=== PATIENT | female | born 1965 ===

== ENCOUNTER 2020-05-11 14:54 | Outpatient (REF) | payer MEDICARE, MEDICAID, SELFPAY ==
[2020-05-17 18:17] LABS: HPV mRNA E6/E7 rflx Not Detected (Not Detected)
== END 2020-05-11 14:55 | disposition home or self-care (01) ==
LOC: HO.LAB 14:54
PROVIDERS: PCP Internal Medicine; Referring Provider Internal Medicine; Visit Provider Obstetrics & Gynecology
DX: Z01.419 Encounter for gynecological examination (general) (routine) without abnormal findings (principal); N95.9 Unspecified menopausal and perimenopausal disorder; Z11.51 Encounter for screening for human papillomavirus (HPV)
CPT/HCPCS: 87624; 87625; 88142

== ENCOUNTER 2020-06-15 13:32 | Outpatient (REF) | payer MEDICARE, MEDICAID, SELFPAY ==
--- NOTE | 2020-06-15 13:36 | MM_ITS ---
EXAMINATION: MM SCREENING DIGITAL MAMMOGRAPHY, BILATERAL CLINICAL INFORMATION: Screening. Asymptomatic. The lifetime risk of breast cancer based on the Tyrer-Cuzick Model is 10.3%. COMPARISON: Mammography: September 22, 2017 and studies dating back to March 04, 2014 TECHNIQUE: Digital mammography is performed in craniocaudal and mediolateral oblique views along with computer-aided detection (CAD). Additional left exaggerated craniocaudal view performed. FINDINGS: The breasts are heterogeneously dense, which may obscure small masses (ACR BI-RADS breast composition Category c). There are no significant masses, abnormal calcifications, or other abnormalities. Increasing calcifications within the upper outer aspect of the left breast which has been previously sampled and shown to be benign. MM/MM screening mammo BI IMPRESSION: There are no significant changes from prior study. ASSESSMENT: BI-RADS 1: Negative RECOMMENDATION: Routine annual mammography screening. This patient's information was entered into a reminder system with a target due date for their next mammogram.
== END 2020-06-15 13:33 | disposition home or self-care (01) ==
LOC: HO.MAMMO 13:32
PROVIDERS: PCP Internal Medicine; Visit Provider Internal Medicine
DX: Z12.31 Encounter for screening mammogram for malignant neoplasm of breast (principal)
CPT/HCPCS: 77067

== ENCOUNTER 2020-07-05 13:13 | Outpatient (REF) | payer MEDICARE, MEDICAID, SELFPAY | END 2020-07-05 13:14 | disposition home or self-care (01) | LOC: HO.LAB 13:13 | PROVIDERS: PCP Internal Medicine; Visit Provider Internal Medicine | DX: Z20.828 Contact with and (suspected) exposure to other viral communicable diseases (principal) | CPT/HCPCS: C9803; U0003 ==

== ENCOUNTER 2020-08-20 02:26 | Emergency (ER) | payer MEDICARE, MEDICAID, SELFPAY ==
--- NOTE | ~2020-08-20 | XR_ITS ---
EXAMINATION: CHEST 1 VIEW CLINICAL INFORMATION: Shortness of breath. COMPARISON: 12/23/2019. TECHNIQUE: An AP view of the chest is provided. FINDINGS: The cardiac silhouette is not enlarged. The mediastinal and hilar contours are unremarkable. There are neither pleural effusions nor pneumothoraces. There are no consolidations. The osseous structures are stable with moderate S-shaped curvature to the thoracolumbar spine. XR/XR chest 1V IMPRESSION: No evidence for acute disease.
[2020-08-20 02:34] VITALS: BP 100/53; BP 110/62; PULSE 60; PULSE 66; RESP 18; TEMP 36.8; O2SAT 100; O2SAT 98; BMI 29.6
--- NOTE | 2020-08-20 04:26 | ECG_ITS ---
Test Reason : PAIN Blood Pressure : / mmHG Vent. Rate : 059 BPM Atrial Rate : 059 BPM P-R Int : 138 ms QRS Dur : 086 ms QT Int : 430 ms P-R-T Axes : -21 -17 -19 degrees QTc Int : 425 ms Sinus bradycardia Low voltage QRS Inferior infarct , age undetermined Cannot rule out Anterior infarct , age undetermined Abnormal ECG When compared to the previous EKG of 23 december 2019, changes noted Referred By: Erika Hoyos Electronically Signed By:MARY ANNE GURROLA
[2020-08-20 05:13] LABS: Basophils Absolute Auto 0.1 X10*3/uL (0.0-0.2); Basophils Percent Auto 0.7 % (0-2); Eosinophils Absolute Auto 0.5 X10*3/uL (0.0-0.4); Eosinophils Percent Auto 5.4 % (0-4); Hematocrit 38.2 % (37-47); Hemoglobin 12.4 g/dl (12.0-16.0); Imm Gran Abs Auto 0.02 X10*3/uL (0.00-0.03); Imm Gran Pct Auto 0.2 % (0.0-0.4); Lymphocytes Absolute Auto 2.6 X10*3/uL (1.2-4.9); Lymphocytes Percent Auto 31.3 % (20-40); MANUAL DIFF FLAG NO; Mean Corpuscular HGB Conc 32.5 g/dl (31.0-35.0); Mean Corpuscular Volume 89.3 fL (80-98); Mean Platelet Volume 10.8 fL (9.4-12.3); Monocytes Absolute Auto 0.4 X10*3/uL (0.1-1.2); Monocytes Percent Auto 4.3 % (2-11); Neutrophils Absolute Auto 4.9 X10*3/uL (2.0-8.3); Neutrophils Percent Auto 58.1 % (45-73); Platelet Count 282 X10*3/uL (160-400); Red Blood Count 4.28 X10*6/uL (4.20-5.50); Red Cell Distribution Width 12.5 % (11.0-16.0); White Blood Count 8.4 X10*3/uL (4.8-10.8)
[2020-08-20 05:28] LABS: D Dimer < 200 NG/ML
[2020-08-20 05:37] LABS: Troponin-I High Sensitivity < 3.5 ng/L (<3.5-17.0)
[2020-08-20 05:42] LABS: Alanine Aminotransferase 13 U/L (0-31); Albumin Level 4.1 g/dL (3.5-5.0); Alkaline Phosphatase 130 U/L (39-117); Anion Gap 11 (12-20); Aspartate Amino Transferase 14 U/L (5-31); Bilirubin Direct 0.2 mg/dL (0.0-0.5); Bilirubin Total 0.4 mg/dL (0.0-1.0); Blood Urea Nitrogen 20 mg/dL (9-16); Calcium 9.1 mg/dL (8.4-10.2); Carbon Dioxide 27 mmol/L (22-29); Chloride 106 mmol/L (96-108); Creatinine Clr Calc Pharmacy 62.6; Estimated Glomerular Filt Rate > 60; Glucose Random 121 mg/dL (60-115); Lipase 37 U/L (8-78); Potassium 4.3 mmol/L (3.3-5.1); Sodium 140 mmol/L (135-145); Total Protein 6.7 g/dL (6.5-8.0)
[2020-08-20 06:00] VITALS: BP 115/56; PULSE 63; RESP 15; O2SAT 98
--- NOTE | 2020-08-20 06:54 | ED_ITS ---
HPI - General Adult General Chief complaint: General Medical Stated complaint: Leg Swelling Time Seen by Provider: 08/20/20 04:25 Source: patient and tipple boss Mode of arrival: ambulatory Limitations: no limitations History of Present Illness HPI narrative: 55-year-old female who presented to the hospital with symptoms of lower extremities pain and swelling, patient stated after she took her home medication felt the medicine stuck her in her throat and felt short. Of shortness of breath, patient only have a chronic generalized body ache due to arthritis. Related Data Home Medications Medication Instructions Recorded Confirmed furosemide 20 mg tablet 20 mg PO DAILY 05/11/20 06/26/20 gabapentin 300 mg capsule 300 mg PO BID 05/11/20 06/26/20 sulindac 200 mg tablet 200 mg PO BID 05/11/20 06/26/20 tizanidine 4 mg tablet 4 mg PO BEDTIME 05/11/20 06/26/20 trazodone 50 mg tablet 50 mg PO BEDTIME PRN 05/11/20 06/26/20 Previous Rx's Medication Instructions Recorded omeprazole 20 mg tablet,delayed 20 mg PO DAILY 30 Days #30 tab 04/20/20 release Allergies Allergy/AdvReac Type Severity Reaction Status Date / Time tramadol Allergy Unknown headaches Verified 06/26/20 14:02 Review of Systems Review of Systems: All other systems are reviewed and are negative Constitutional: Reports as per HPI and Reports no additional constitutional complaints Eyes: Reports as per HPI and Reports no additional eye complaints Reports system reviewed and no additional complaints, except as documented Cardiovascular: Reports as per HPI and Reports no additional cardiovascular complaints Respiratory: Reports as per HPI and Reports no additional respiratory complaints Gastrointestinal: Reports as per HPI and Reports no additional gastrointestinal complaints Genitourinary: Reports no additional female genitourinary complaints Musculoskeletal: Reports no additional musculoskeletal complaints Skin/Breast: Reports system reviewed and no additional complaints, except as docu Psychiatric: Reports no additional psychiatric complaints Endocrine: Reports no additional endocrine complaints Hematologic/Lymphatic: Reports no additional hematologic/lymphatic complaints Allergic/Immunologic: Reports no additional allergic/immunologic complaints Reports system reviewed and no additional complaints, except as documented and Reports Abnormal speech present [facility] Past Medical History Medical History Dyslipidemia GERD (gastroesophageal reflux disease) Hyperlipemia Insomnia Multiple sclerosis Polyarthralgia Surgical History History of colonoscopy Hx of tubal ligation Family History Family History Father Hypertension Mother Diabetes mellitus Breast cancer Maternal Grandmother Breast cancer Social History Social History Alcohol intake: never Smoking Status: Never smoker Use of substances other than those prescribed or required for medical reasons: No Advance Directives: No Advance Directives Information Provided: No Physical Exam Vital Signs: Vital Signs: Last Vital Signs Temp 98.2 F 08/20/20 02:34 Pulse 63 08/20/20 06:00 Resp 15 08/20/20 06:00 BP 115/56 L 08/20/20 06:00 Pulse Ox 98 08/20/20 06:00 Body Mass Index 29.6 Vital signs have been reviewed as normal and appeared to be correct. Blood pressure normal. Heart rate normal. Respiration rate normal. Temperature normal. Oxygen saturation normal. Appearance: Alert. Oriented X3. No acute distress. Head: Normal external exam. Normocephalic. Atraumatic. No Ods Santos signs noted. No raccoon eyes noted Eyes: PERRLA. EOMI. Conjunctiva and sclera normal. Eyelids normal. ENT: EAC normal. TM's Normal. Pharynx normal. Uvula midline. Moist mucous membranes. No trismus noted. No drooling noted. No muffled voice noted. Neck: Normal inspection. Neck supple. FROM. No adenopathy. Thyroid Normal. No meningeal signs. No neck mass noted. CVS: Normal heart rate and rhythm. Heart sound normal. No murmurs noted. Pulses normal throughout. Respiratory: No respiratory distress. Painless inspiration. Breath sounds normal. No wheezes/rales/rhonchi noted. Chest nontender. No accessory muscle usage noted or decreased air movement noted. Abdomen: Soft and nontender. Bowel sounds normal in all 4 quadrants. No distention noted. No organomegaly noted. No visible injury noted. Back: No CVA tenderness. Full range of motion noted. Skin: Skin warm and dry. Normal skin color. Normal skin turgor. No rashes/lesions/lacerations noted. Extremities: No lower extremity edema. Extremities exhibit normal range of motion. Extremities nontender. Neuro: Oriented X 3. No motor deficit. No sensory deficit. Reflexes normal. Course Course Course Narrative: Assessment and plan. 55-year-old female came in after having generalized body ache (patient have a chronic joint pain due to chronic arthritis), patient also feels short time of shortness of breath after swallowed her home medication. Patient now is asymptomatic feels back to normal, had unremarkable chest x-ray, unremarkable labs. Medical Decision Making Lab Data Lab results reviewed: Yes I reviewed the patient's lab results. Result diagrams: 08/20/20 05:08 08/20/20 05:08 Labs: Lab Results 08/20/20 08/20/20 08/20/20 Range/Units 05:08 05:08 05:08 WBC 8.4 (4.8-10.8) X10*3/uL RBC 4.28 (4.20-5.50) X10*6/uL Hgb 12.4 (12.0-16.0) g/dl Hct 38.2 (37-47) % MCV 89.3 (80-98) fL MCH 29.0 (27.0-33.0) pg MCHC 32.5 (31.0-35.0) g/dl RDW 12.5 (11.0-16.0) % Plt Count 282 (160-400) X10*3/uL MPV 10.8 (9.4-12.3) fL Immature Gran % (Auto) 0.2 (0.0-0.4) % Neut % (Auto) 58.1 (45-73) % Lymph % (Auto) 31.3 (20-40) % [place] % (Auto) 4.3 (2-11) % Eos % (Auto) 5.4 H (0-4) % Baso % (Auto) 0.7 (0-2) % Lymph # (Auto) 2.6 (1.2-4.9) X10*3/uL [place] # (Auto) 0.4 (0.1-1.2) X10*3/uL Eos # (Auto) 0.5 H (0.0-0.4) X10*3/uL Baso # (Auto) 0.1 (0.0-0.2) X10*3/uL Abs Immat Gran (auto) 0.02 (0.00-0.03) X10*3/uL Absolute Neuts (auto) 4.9 (2.0-8.3) X10*3/uL Absolute Nucleated RBC 0.000 (0.0-0.012) X10*3/uL Nucleated RBC % (auto) 0.0 (0.0-0.2) /100WBC D-Dimer < 200 NG/ML Sodium 140 (135-145) mmol/L Potassium 4.3 (3.3-5.1) mmol/L Chloride 106 (96-108) mmol/L Carbon Dioxide 27 (22-29) mmol/L Anion Gap 11 L (12-20) BUN 20 H (9-16) mg/dL Creatinine 0.94 (0.5-1.4) mg/dL Estim Creat Clear Calc 62.6 Estimated GFR > 60 Random Glucose 121 H (60-115) mg/dL Calcium 9.1 (8.4-10.2) mg/dL Total Bilirubin 0.4 (0.0-1.0) mg/dL Direct Bilirubin 0.2 (0.0-0.5) mg/dL AST 14 (5-31) U/L ALT 13 (0-31) U/L Alkaline Phosphatase 130 H (39-117) U/L Troponin I High Sens (<3.5-17.0) ng/L Total Protein 6.7 (6.5-8.0) g/dL Albumin 4.1 (3.5-5.0) g/dL Lipase 37 (8-78) U/L 08/20/20 Range/Units 05:08 WBC (4.8-10.8) X10*3/uL RBC (4.20-5.50) X10*6/uL Hgb (12.0-16.0) g/dl Hct (37-47) % MCV (80-98) fL MCH (27.0-33.0) pg MCHC (31.0-35.0) g/dl RDW (11.0-16.0) % Plt Count (160-400) X10*3/uL MPV (9.4-12.3) fL Immature Gran % (Auto) (0.0-0.4) % Neut % (Auto) (45-73) % Lymph % (Auto) (20-40) % [place] % (Auto) (2-11) % Eos % (Auto) (0-4) % Baso % (Auto) (0-2) % Lymph # (Auto) (1.2-4.9) X10*3/uL [place] # (Auto) (0.1-1.2) X10*3/uL Eos # (Auto) (0.0-0.4) X10*3/uL Baso # (Auto) (0.0-0.2) X10*3/uL Abs Immat Gran (auto) (0.00-0.03) X10*3/uL Absolute Neuts (auto) (2.0-8.3) X10*3/uL Absolute Nucleated RBC (0.0-0.012) X10*3/uL Nucleated RBC % (auto) (0.0-0.2) /100WBC D-Dimer NG/ML Sodium (135-145) mmol/L Potassium (3.3-5.1) mmol/L Chloride (96-108) mmol/L Carbon Dioxide (22-29) mmol/L Anion Gap (12-20) BUN (9-16) mg/dL Creatinine (0.5-1.4) mg/dL Estim Creat Clear Calc Estimated GFR Random Glucose (60-115) mg/dL Calcium (8.4-10.2) mg/dL Total Bilirubin (0.0-1.0) mg/dL Direct Bilirubin (0.0-0.5) mg/dL AST (5-31) U/L ALT (0-31) U/L Alkaline Phosphatase (39-117) U/L Troponin I High Sens < 3.5 (<3.5-17.0) ng/L Total Protein (6.5-8.0) g/dL Albumin (3.5-5.0) g/dL Lipase (8-78) U/L Imaging Data Chest x-ray: Radiologist's impression: No evidence for acute disease. ECG Data Interpretation: Sinus bradycardia at 59 beats per minutes, low voltage, normal i ntervals, flattening T-wave in lead II,III. Discharge Plan Discharge Clinical Impression: Polyarthralgia Patient Disposition: Home, Self-Care Instructions: Arthralgia (ED) Prescriptions: No Action omeprazole 20 mg tablet,delayed release (DR/EC) 20 mg PO DAILY 30 Days Qty: 30 RF: 3 gabapentin 300 mg capsule 300 mg PO BID RF: 0 sulindac 200 mg tablet 200 mg PO BID RF: 0 furosemide 20 mg tablet 20 mg PO DAILY RF: 0 tizanidine 4 mg tablet 4 mg PO BEDTIME RF: 0 trazodone 50 mg tablet 50 mg PO BEDTIME PRNRF: 0 Referrals: Physician,Unknown [Primary Care Provider] - 2 days
== END 2020-08-20 08:00 | disposition home or self-care (01) ==
PROVIDERS: Emergency Provider Emergency Medicine
DX: M25.50 Pain in unspecified joint (principal); G35 Multiple sclerosis
CPT/HCPCS: 36415; 71045; 80048; 80076; 83690; 84484; 85025; 85379; 93005; 99283; 99284

== ENCOUNTER 2020-09-07 09:39 | Outpatient (REF) | payer MEDICARE, MEDICAID, SELFPAY ==
[2020-09-07 10:30] LABS: MANUAL DIFF FLAG NO
[2020-09-07 10:38] LABS: Basophils Absolute Auto 0.1 X10*3/uL (0.0-0.2); Basophils Percent Auto 0.9 % (0-2); Eosinophils Absolute Auto 0.4 X10*3/uL (0.0-0.4); Hematocrit 42.2 % (37-47); Hemoglobin 13.7 g/dl (12.0-16.0); Imm Gran Abs Auto 0.02 X10*3/uL (0.00-0.03); Imm Gran Pct Auto 0.3 % (0.0-0.4); Lymphocytes Absolute Auto 2.2 X10*3/uL (1.2-4.9); Mean Corpuscular HGB Conc 32.5 g/dl (31.0-35.0); Mean Corpuscular Hemoglobin 28.9 pg (27.0-33.0); Mean Platelet Volume 10.9 fL (9.4-12.3); Monocytes Absolute Auto 0.4 X10*3/uL (0.1-1.2); Neutrophils Percent Auto 56.8 % (45-73); Platelet Count 348 X10*3/uL (160-400); Red Blood Count 4.74 X10*6/uL (4.20-5.50); Red Cell Distribution Width 12.2 % (11.0-16.0)
[2020-09-07 11:11] LABS: Alanine Aminotransferase 15 U/L (0-31); Albumin Level 4.3 g/dL (3.5-5.0); Alkaline Phosphatase 135 U/L (39-117); Anion Gap 13 (12-20); Aspartate Amino Transferase 17 U/L (5-31); Bilirubin Total 0.7 mg/dL (0.0-1.0); Blood Urea Nitrogen 19 mg/dL (9-16); Calcium 9.6 mg/dL (8.4-10.2); Carbon Dioxide 26 mmol/L (22-29); Chloride 108 mmol/L (96-108); Cholesterol 235 mg/dL; Estimated Glomerular Filt Rate > 60; Glucose Fasting 103 mg/dL (60-99); HDL Cholesterol 36 mg/dL; LDL Cholesterol Calculated 143 mg/dl; Potassium 4.5 mmol/L (3.3-5.1); Sodium 142 mmol/L (135-145); Total Protein 7.1 g/dL (6.5-8.0); Triglycerides 282 mg/dL
== END 2020-09-07 09:40 | disposition home or self-care (01) ==
LOC: HO.LAB 09:39
PROVIDERS: PCP Internal Medicine; Visit Provider Internal Medicine
DX: K21.9 Gastro-esophageal reflux disease without esophagitis (principal); E78.5 Hyperlipidemia, unspecified
CPT/HCPCS: 36415; 80053; 80061; 85025

== ENCOUNTER 2020-11-09 13:22 | Outpatient (REF) | payer MEDICARE, MEDICAID, SELFPAY | END 2020-11-09 13:23 | disposition home or self-care (01) | LOC: HO.LAB 13:22 | PROVIDERS: Visit Provider Internal Medicine | DX: Z20.822 Contact with and (suspected) exposure to COVID-19 (principal) | CPT/HCPCS: C9803; U0003; U0005 ==

== ENCOUNTER 2020-11-19 00:10 | Emergency (ER) | payer MEDICARE, MEDICAID, SELFPAY ==
--- NOTE | 2020-11-19 00:27 | ED.GENADULT ---
HPI - General Adult General Chief complaint: General Medical Stated complaint: anxiety Time Seen by Provider: 11/19/20 00:19 Source: patient Mode of arrival: EMS Limitations: no limitations History of Present Illness HPI narrative: Patient comes emergency room complaining of feeling tremors that started suddenly approximately 2 hours ago. Patient states she can not stop shaking, feels chest pressure. Patient denies shortness of breath. Patient also states that she feels a sensation that sometimes it is really cold in her body and sometimes it is very warm. After further questioning, patient meets that she ate CBD edible, given by her grandson. Patient states that her grandson told her not to tell us anything about the gummy. Related Data Home Medications Medication Instructions Recorded Confirmed furosemide 20 mg tablet 20 mg PO DAILY 05/11/20 10/16/20 trazodone 50 mg tablet 50 mg PO BEDTIME PRN 05/11/20 10/16/20 Previous Rx's Medication Instructions Recorded omeprazole 20 mg tablet,delayed 20 mg PO DAILY 30 Days #30 tab 08/26/20 release gabapentin 300 mg capsule 300 mg PO BID 30 Days #60 cap 10/09/20 sulindac 200 mg tablet 200 mg PO BID 30 Days #60 tab 10/09/20 atorvastatin 10 mg tablet 10 mg PO BEDTIME 30 Days #30 tab 10/16/20 nabumetone 750 mg tablet 750 mg PO BID 30 Days #60 tab 10/16/20 tizanidine 4 mg tablet 4 mg PO BEDTIME 30 Days #30 tab 11/15/20 Allergies Allergy/AdvReac Type Severity Reaction Status Date / Time tramadol Allergy Intermediate headaches Verified 11/19/20 00:20 Review of Systems Review of Systems: Constitutional : No Weight loss, No Fever, No Chills, No Night Sweats, No Fatigue, No Malaise ENT/Mouth : No Hearing loss, No Ear Pain, No Nasal Congestion, No Sinus Pain, No Hoarseness, No sore throat, No Rhinorrhea, No Swallowing Difficulty Eyes: No Eye Pain, No Swelling, No Redness, No Foreign Body, No Discharge, No Vision Changes Cardiovascular : Complaining of chest pressure, gradually getting better, No SOB, No Dyspnea on Exertion, No Orthopnea, No Edema, No Palpitations Respiratory : No Cough, No Sputum, No Wheezing, No Smoke Exposure, No Dyspnea Gastrointestinal : No Nausea, No Vomiting, No Diarrhea, No Constipation, No abdominal Pain, No Hematochezia, No Melena Genitourinary : no irregular bleeding, No Dysuria, No Urinary Frequency, No Hematuria, No Urinary Incontinence, No Urgency, No Flank Pain, No Urinary Flow Changes, No Hesitancy Musculoskeletal : No joint pain, No Myalgias, No Joint Swelling Skin : No Skin Lesions, No rash Neuro : No Weakness, No Numbness, No Paresthesias, No Loss of Consciousness, No Dizziness, No Headache Psych : Feeling anxious, No Depression, No SI/HI/AH/VH, No Social Issues, Heme/Lymph: No Bruising, No Bleeding,No Lymphadenopathy Endocrine : No Polyuria, No Polydipsia, No Temperature Intolerance PMFSH Past Medical History Medical History Dyslipidemia GERD (gastroesophageal reflux disease) Hyperlipemia Insomnia Multiple sclerosis Polyarthralgia Surgical History History of colonoscopy Hx of tubal ligation Family History Family History Father Hypertension Mother Diabetes mellitus Breast cancer Maternal Grandmother Breast cancer Social History Social History Alcohol intake: never Smoking Status: Never smoker Advance Directives: No Advance Directives Information Provided: No Patient : No Physical Exam Vital Signs: Vital Signs: Last Vital Signs Temp 97.7 F 11/19/20 00:34 Pulse 90 11/19/20 00:34 Resp 16 11/19/20 00:34 BP 171/100 H 11/19/20 00:34 Pulse Ox 100 11/19/20 00:34 Body Mass Index 32.9 Appearance: Alert. Oriented X3. No acute distress. Nervous Eyes: Pupils equal, round and reactive to light. ENT: Pharynx normal. Neck: Normal inspection. Neck supple. No lymph nodes noted. No crepitus CVS: Normal heart rate and rhythm. Pulses normal. Normal S1 and S2 Respiratory: No respiratory distress. Breath sounds normal. No Wheezing. No rales Abdomen: Soft and nontender. No rigidity. No distention. good BS x4 Skin: Skin warm and dry. Normal skin color. Normal skin turgor. Extremities: No lower extremity edema. No lower extremity edema. No Lacerations. No Rash Neuro: Oriented X 3. No motor deficit. No sensory deficit. Moving all extermities. No slurred speech. No tremor observed Course Course Course Narrative: Overall patient states she feels better, patient complaining of chronic tingling sensation in her legs, states has nothing to do with today's events. It was noted on the monitor the patient has frequent PVCs, patient asymptomatic. Patient is ambulatory with no assistance. Troponin within normal limits. Medical Decision Making Lab Data Result diagrams: 11/19/20 00:56 11/19/20 00:56 Labs: Lab Results 11/19/20 11/19/20 11/19/20 Range/Units 00:56 00:56 00:56 WBC 11.7 H (4.8-10.8) X10*3/uL RBC 4.64 (4.20-5.50) X10*6/uL Hgb 13.3 (12.0-16.0) g/dl Hct 40.2 (37-47) % MCV 86.6 (80-98) fL MCH 28.7 (27.0-33.0) pg MCHC 33.1 (31.0-35.0) g/dl RDW 11.9 (11.0-16.0) % Plt Count 315 (160-400) X10*3/uL MPV 10.5 (9.4-12.3) fL Immature Gran % (Auto) 0.3 (0.0-0.4) % Neut % (Auto) 64.3 (45-73) % Lymph % (Auto) 27.5 (20-40) % [place] % (Auto) 4.0 (2-11) % Eos % (Auto) 3.3 (0-4) % Baso % (Auto) 0.6 (0-2) % Lymph # (Auto) 3.2 (1.2-4.9) X10*3/uL [place] # (Auto) 0.5 (0.1-1.2) X10*3/uL Eos # (Auto) 0.4 (0.0-0.4) X10*3/uL Baso # (Auto) 0.1 (0.0-0.2) X10*3/uL Abs Immat Gran (auto) 0.03 (0.00-0.03) X10*3/uL Absolute Neuts (auto) 7.5 (2.0-8.3) X10*3/uL Absolute Nucleated RBC 0.000 (0.0-0.012) X10*3/uL Nucleated RBC % (auto) 0.0 (0.0-0.2) /100WBC Sodium 141 (135-145) mmol/L Potassium 4.1 (3.3-5.1) mmol/L Chloride 104 (96-108) mmol/L Carbon Dioxide 29 (22-29) mmol/L Anion Gap 12 (12-20) BUN 18 H (9-16) mg/dL Creatinine 1.07 (0.5-1.4) mg/dL Estim Creat Clear Calc 58.1 Estimated GFR 53 Random Glucose 150 H (60-115) mg/dL Calcium 9.8 (8.4-10.2) mg/dL Troponin I High Sens < 3.5 (<3.5-17.0) ng/L COVID-19 ([facility]) (Negative) COVID-19 Clin Com 11/19/20 Range/Units 00:56 WBC (4.8-10.8) X10*3/uL RBC (4.20-5.50) X10*6/uL Hgb (12.0-16.0) g/dl Hct (37-47) % MCV (80-98) fL MCH (27.0-33.0) pg MCHC (31.0-35.0) g/dl RDW (11.0-16.0) % Plt Count (160-400) X10*3/uL MPV (9.4-12.3) fL Immature Gran % (Auto) (0.0-0.4) % Neut % (Auto) (45-73) % Lymph % (Auto) (20-40) % [place] % (Auto) (2-11) % Eos % (Auto) (0-4) % Baso % (Auto) (0-2) % Lymph # (Auto) (1.2-4.9) X10*3/uL [place] # (Auto) (0.1-1.2) X10*3/uL Eos # (Auto) (0.0-0.4) X10*3/uL Baso # (Auto) (0.0-0.2) X10*3/uL Abs Immat Gran (auto) (0.00-0.03) X10*3/uL Absolute Neuts (auto) (2.0-8.3) X10*3/uL Absolute Nucleated RBC (0.0-0.012) X10*3/uL Nucleated RBC % (auto) (0.0-0.2) /100WBC Sodium (135-145) mmol/L Potassium (3.3-5.1) mmol/L Chloride (96-108) mmol/L Carbon Dioxide (22-29) mmol/L Anion Gap (12-20) BUN (9-16) mg/dL Creatinine (0.5-1.4) mg/dL Estim Creat Clear Calc Estimated GFR Random Glucose (60-115) mg/dL Calcium (8.4-10.2) mg/dL Troponin I High Sens (<3.5-17.0) ng/L COVID-19 ([facility]) Negative (Negative) COVID-19 Clin Com See Note ECG Data Attestation: I personally reviewed and interpreted this ECG as follows: (Sinus rhythm with premature PVCs, heart rate 83, no ST segment depression or elevation, QTC 441) Discharge Plan Discharge Clinical Impression: Anxiety Patient Disposition: Home, Self-Care Instructions: Anxiolysis in Adults (ED) Additional Instructions: Please follow-up with your primary care physician tomorrow. If you have any worsening or new symptoms, please return to the emergency room or call 911 Prescriptions: No Action omeprazole 20 mg tablet,delayed release (DR/EC) 20 mg PO DAILY 30 Days Qty: 30 RF: 3 sulindac 200 mg tablet 200 mg PO BID 30 Days Qty: 60 RF: 6 gabapentin 300 mg capsule 300 mg PO BID 30 Days Qty: 60 RF: 6 tizanidine 4 mg tablet 4 mg PO BEDTIME 30 Days Qty: 30 RF: 6 atorvastatin 10 mg tablet 10 mg PO BEDTIME 30 Days Qty: 30 RF: 2 nabumetone 750 mg tablet 750 mg PO BID 30 Days Qty: 60 RF: 3 furosemide 20 mg tablet 20 mg PO DAILY RF: 0 trazodone 50 mg tablet 50 mg PO BEDTIME PRNRF: 0
[2020-11-19 00:34] VITALS: BP 171/100; PULSE 90; RESP 16; TEMP 36.5; O2SAT 100; BMI 32.9
[2020-11-19 01:01] LABS: MANUAL DIFF FLAG NO
[2020-11-19 01:02] LABS: Basophils Absolute Auto 0.1 X10*3/uL (0.0-0.2); Basophils Percent Auto 0.6 % (0-2); Eosinophils Absolute Auto 0.4 X10*3/uL (0.0-0.4); Eosinophils Percent Auto 3.3 % (0-4); Hematocrit 40.2 % (37-47); Hemoglobin 13.3 g/dl (12.0-16.0); Imm Gran Abs Auto 0.03 X10*3/uL (0.00-0.03); Imm Gran Pct Auto 0.3 % (0.0-0.4); Lymphocytes Absolute Auto 3.2 X10*3/uL (1.2-4.9); Lymphocytes Percent Auto 27.5 % (20-40); Mean Corpuscular HGB Conc 33.1 g/dl (31.0-35.0); Mean Corpuscular Hemoglobin 28.7 pg (27.0-33.0); Mean Corpuscular Volume 86.6 fL (80-98); Mean Platelet Volume 10.5 fL (9.4-12.3); Monocytes Absolute Auto 0.5 X10*3/uL (0.1-1.2); Neutrophils Absolute Auto 7.5 X10*3/uL (2.0-8.3); Neutrophils Percent Auto 64.3 % (45-73); Platelet Count 315 X10*3/uL (160-400); Red Blood Count 4.64 X10*6/uL (4.20-5.50); Red Cell Distribution Width 11.9 % (11.0-16.0); White Blood Count 11.7 X10*3/uL (4.8-10.8)
--- NOTE | 2020-11-19 01:22 | ECG_ITS ---
Test Reason : CP Blood Pressure : / mmHG Vent. Rate : 083 BPM Atrial Rate : 083 BPM P-R Int : 138 ms QRS Dur : 092 ms QT Int : 376 ms P-R-T Axes : 062 038 044 degrees QTc Int : 441 ms Sinus rhythm with Premature supraventricular complexes Cannot rule out Anterior infarct (cited on or before 20-AUG-2020) Abnormal ECG When compared with ECG of 20-AUG-2020 05:30, Premature supraventricular complexes are now Present Criteria for Inferior infarct are no longer Present Nonspecific T wave abnormality no longer evident in Inferior leads Referred By: Berna Acosta Electronically Signed By:Wilberto Farooq
[2020-11-19 01:23] LABS: Anion Gap 12 (12-20); Blood Urea Nitrogen 18 mg/dL (9-16); Calcium 9.8 mg/dL (8.4-10.2); Carbon Dioxide 29 mmol/L (22-29); Chloride 104 mmol/L (96-108); Creatinine Clr Calc Pharmacy 58.1; Estimated Glomerular Filt Rate 53; Glucose Random 150 mg/dL (60-115); Potassium 4.1 mmol/L (3.3-5.1); Sodium 141 mmol/L (135-145)
[2020-11-19] MEDS: Aspirin Enteric Coated 325 MG TABLET.DR PO (01:25)
[2020-11-19 01:30] LABS: Troponin-I High Sensitivity < 3.5 ng/L (<3.5-17.0)
[2020-11-19 01:48] LABS: COVID-19 Test Negative (Negative)
--- NOTE | 2020-11-19 02:00 | PC.NURSE ---
PT AMBULATORY TO BATHROOM WITH STEADY GAIT. MD REPORTS PT READY FOR DISCHARGE.
== END 2020-11-19 02:00 | disposition home or self-care (01) ==
PROVIDERS: Emergency Provider Emergency Medicine; PCP Internal Medicine
DX: R25.1 Tremor, unspecified (principal); F41.1 Generalized anxiety disorder; F43.0 Acute stress reaction; Z20.822 Contact with and (suspected) exposure to COVID-19; Z79.899 Other long term (current) drug therapy
CPT/HCPCS: 36415; 80048; 84484; 85025; 87635; 93005; 99283

== ENCOUNTER 2020-12-22 09:14 | Outpatient (REF) | payer MEDICARE, MEDICAID, SELFPAY ==
--- NOTE | ~2020-12-22 | XR_ITS ---
EXAMINATION: XR CERVICAL SPINE CLINICAL INFORMATION: Neck pain. COMPARISON: None TECHNIQUE: 3 views of the cervical spine were obtained. FINDINGS: There is mild straightening of cervical lordosis. The vertebral heights, alignment and disc heights are normal. There is no visible acute fracture, dislocation or subluxation seen. The prevertebral and paravertebral soft tissues are normal. XR/XR cervical spine 2V IMPRESSION: Mild straightening of cervical lordosis. No visible acute fracture, dislocation or lytic process seen.
[2020-12-22 11:06] LABS: MANUAL DIFF FLAG NO
[2020-12-22 11:20] LABS: Basophils Absolute Auto 0.1 X10*3/uL (0.0-0.2); Basophils Percent Auto 0.7 % (0-2); Eosinophils Absolute Auto 0.4 X10*3/uL (0.0-0.4); Eosinophils Percent Auto 5.1 % (0-4); Hematocrit 40.8 % (37-47); Hemoglobin 13.1 g/dl (12.0-16.0); Imm Gran Abs Auto 0.02 X10*3/uL (0.00-0.03); Imm Gran Pct Auto 0.2 % (0.0-0.4); Lymphocytes Percent Auto 24.3 % (20-40); Mean Corpuscular HGB Conc 32.1 g/dl (31.0-35.0); Mean Corpuscular Hemoglobin 28.4 pg (27.0-33.0); Mean Corpuscular Volume 88.3 fL (80-98); Mean Platelet Volume 11.4 fL (9.4-12.3); Monocytes Absolute Auto 0.5 X10*3/uL (0.1-1.2); Monocytes Percent Auto 5.9 % (2-11); Neutrophils Absolute Auto 5.2 X10*3/uL (2.0-8.3); Neutrophils Percent Auto 63.8 % (45-73); Platelet Count 298 X10*3/uL (160-400); Red Blood Count 4.62 X10*6/uL (4.20-5.50); Red Cell Distribution Width 12.4 % (11.0-16.0); White Blood Count 8.2 X10*3/uL (4.8-10.8)
[2020-12-22 12:15] LABS: Alanine Aminotransferase 12 U/L (0-31); Albumin Level 4.1 g/dL (3.5-5.0); Alkaline Phosphatase 147 U/L (39-117); Anion Gap 13 (12-20); Aspartate Amino Transferase 14 U/L (5-31); Bilirubin Total 0.5 mg/dL (0.0-1.0); Blood Urea Nitrogen 20 mg/dL (9-16); Carbon Dioxide 26 mmol/L (22-29); Chloride 108 mmol/L (96-108); Cholesterol 172 mg/dL; Estimated Glomerular Filt Rate > 60; Glucose Fasting 101 mg/dL (60-99); HDL Cholesterol 38 mg/dL; LDL Cholesterol Calculated 94 mg/dl; Potassium 4.5 mmol/L (3.3-5.1); Sodium 142 mmol/L (135-145); Total Protein 6.6 g/dL (6.5-8.0); Triglycerides 201 mg/dL
[2020-12-30 16:07] LABS: Vitamin D 25-OH, D2 <4 ng/mL; Vitamin D 25-OH, D3 30 ng/mL; Vitamin D 25-OH, Total 30 ng/mL (30-100)
== END 2020-12-22 09:15 | disposition home or self-care (01) ==
LOC: HO.XRAY 09:14
PROVIDERS: PCP Internal Medicine; Visit Provider Internal Medicine
DX: M54.2 Cervicalgia (principal); D64.9 Anemia, unspecified; E78.5 Hyperlipidemia, unspecified; E55.9 Vitamin D deficiency, unspecified; M25.50 Pain in unspecified joint
CPT/HCPCS: 36415; 72040; 80053; 80061; 82306; 85025

== ENCOUNTER 2021-01-31 08:41 | Outpatient (REF) | payer MEDICARE, MEDICAID, SELFPAY ==
--- NOTE | 2021-01-31 08:44 | EMG_ITS ---
This is a 55-year-old woman with a 2-month history of bilateral upper extremity pain, numbness, and tingling. She is on no medications. PHYSICAL EXAMINATION: On examination, she is alert and oriented with normal intellectual functions. Cranial nerves II through XII are normal. Muscle tone and strength are normal in all 4 extremities. Deep tendon reflexes symmetrical. No Tinel or Phalen sign. IMPRESSION: Rule out carpal tunnel syndrome. Nerve conduction EMG study: Normal electrodiagnostic study of both upper extremities with no evidence of carpal tunnel syndrome or nerve entrapment. Normal EMG of the right C5-T1 innervated muscles. MD NICK Dorado/LALIT / [id number]
== END 2021-01-31 08:42 | disposition home or self-care (01) ==
LOC: HO.NEURO 08:41
PROVIDERS: Visit Provider Internal Medicine
DX: R20.0 Anesthesia of skin (principal)
CPT/HCPCS: 95885; 95913

== ENCOUNTER 2021-02-26 13:34 | Outpatient (REF) | payer MEDICARE, MEDICAID, SELFPAY ==
--- NOTE | ~2021-02-26 | MR_ITS ---
EXAMINATION: MR BRAIN WITHOUT CONTRAST CLINICAL INFORMATION: Multiple sclerosis follow up study. Headaches. Numbness and tingling of forehead. COMPARISON: Prior MRI dated MRI dated 06/16/2018. TECHNIQUE: Multiplanar, multisequential imaging was obtained without intravenous administration of contrast. FINDINGS: There is a new 1 cm T2 hyperintense lesion in the left frontal burton radiata. When allowing for differences in imaging technique, the remaining overall pattern of disease is without change. No diffusion abnormalities are identified to suggest an acute infarct. The ventricles are normal in size. No mass effect or midline shift is seen. No extra-axial fluid collections are seen. The craniovertebral junction, marrow signal, and midline structures are normal. The major intracranial flow voids at the level of the samish of Agar[place] are preserved. The dural venous sinus flow voids are maintained. The mastoid air cells and paranasal sinuses are fairly well aerated. MR/MR head/brain wo con IMPRESSION: New small 1 cm lesion in the left frontal centrum semiovale. Remaining pattern of white matter disease is stable as compared to previous imaging.
== END 2021-02-26 13:35 | disposition home or self-care (01) ==
LOC: HO.MRI 13:34
PROVIDERS: PCP Internal Medicine; Visit Provider Internal Medicine
DX: G35 Multiple sclerosis (principal)
CPT/HCPCS: 70551

== ENCOUNTER 2021-02-28 12:33 | Outpatient (REF) | payer MEDICARE, MEDICAID, SELFPAY ==
[2021-02-28 14:50] LABS: MANUAL DIFF FLAG NO
[2021-02-28 14:56] LABS: Basophils Absolute Auto 0.1 X10*3/uL (0.0-0.2); Basophils Percent Auto 0.9 % (0-2); Eosinophils Absolute Auto 0.3 X10*3/uL (0.0-0.4); Eosinophils Percent Auto 3.6 % (0-4); Hematocrit 42.1 % (37-47); Hemoglobin 13.8 g/dl (12.0-16.0); Imm Gran Abs Auto 0.02 X10*3/uL (0.00-0.03); Imm Gran Pct Auto 0.3 % (0.0-0.4); Lymphocytes Percent Auto 27.3 % (20-40); Mean Corpuscular HGB Conc 32.8 g/dl (31.0-35.0); Mean Corpuscular Hemoglobin 28.3 pg (27.0-33.0); Mean Corpuscular Volume 86.3 fL (80-98); Mean Platelet Volume 11.1 fL (9.4-12.3); Monocytes Absolute Auto 0.3 X10*3/uL (0.1-1.2); Monocytes Percent Auto 4.2 % (2-11); Neutrophils Absolute Auto 4.7 X10*3/uL (2.0-8.3); Neutrophils Percent Auto 63.7 % (45-73); Platelet Count 326 X10*3/uL (160-400); Red Blood Count 4.88 X10*6/uL (4.20-5.50); Red Cell Distribution Width 12.4 % (11.0-16.0); White Blood Count 7.4 X10*3/uL (4.8-10.8)
[2021-02-28 15:22] LABS: Alanine Aminotransferase 20 U/L (0-31); Albumin Level 4.6 g/dL (3.5-5.0); Alkaline Phosphatase 134 U/L (39-117); Anion Gap 15 (12-20); Aspartate Amino Transferase 17 U/L (5-31); Bilirubin Total 0.4 mg/dL (0.0-1.0); Blood Urea Nitrogen 16 mg/dL (9-16); C Reactive Protein 0.28 mg/dL (< or = 0.50); Calcium 10.1 mg/dL (8.4-10.2); Carbon Dioxide 28 mmol/L (22-29); Chloride 101 mmol/L (96-108); Estimated Glomerular Filt Rate 60; Glucose Random 98 mg/dL (60-115); Potassium 4.2 mmol/L (3.3-5.1); Rheumatoid Factor < 15.0 IU/mL (<15.0); Sodium 140 mmol/L (135-145); Total Protein 7.7 g/dL (6.5-8.0)
[2021-02-28 15:43] LABS: Erythrocyte Sedimentation Rate 11 MM/HR (0-20)
[2021-03-01 11:47] LABS: Lyme Abs Screen <0.90 index
[2021-03-05 13:17] LABS: Vitamin D 25-OH, D2 <4 ng/mL; Vitamin D 25-OH, D3 25 ng/mL; Vitamin D 25-OH, Total 25 ng/mL (30-100)
[2021-03-06 16:28] LABS: Cyclic Citrullinated Peptide <16 UNITS
== END 2021-02-28 12:34 | disposition home or self-care (01) ==
LOC: HO.LAB 12:33
PROVIDERS: PCP Internal Medicine; Visit Provider Student in an Organized Health Care Education/Training Program
DX: M25.50 Pain in unspecified joint (principal); M54.2 Cervicalgia
CPT/HCPCS: 36415; 80053; 82306; 85025; 85652; 86140; 86200; 86431; 86617; 86618; 99202

== ENCOUNTER 2021-03-01 09:59 | Outpatient (REF) | payer MEDICARE, MEDICAID, SELFPAY ==
--- NOTE | ~2021-03-01 | XR_ITS ---
EXAMINATION: RIGHT SHOULDER 4 VIEWS AND CERVICAL SPINE 4 VIEWS CLINICAL INFORMATION: Pain COMPARISON: None TECHNIQUE: As above FINDINGS: Mild spurring about the AC joint. Glenohumeral joint normal. No soft tissue calcifications or focal bony lesion. Good range of motion. Cervical spine imaging demonstrates no prevertebral soft tissue swelling. There is mild endplate spurring with preservation of disc heights. Posterior elements demonstrate mild narrowing of the apophyseal joints throughout without subluxation. Spinous processes intact. Lung apices clear. XR/XR cervical spine 2V IMPRESSION: Mild degeneration AC joint. Generalized spurring as above and narrowing the apophyseal joints without subluxation or disc space narrowing.
--- NOTE | ~2021-03-01 | XR_ITS ---
EXAMINATION: RIGHT SHOULDER 4 VIEWS AND CERVICAL SPINE 4 VIEWS CLINICAL INFORMATION: Pain COMPARISON: None TECHNIQUE: As above FINDINGS: Mild spurring about the AC joint. Glenohumeral joint normal. No soft tissue calcifications or focal bony lesion. Good range of motion. Cervical spine imaging demonstrates no prevertebral soft tissue swelling. There is mild endplate spurring with preservation of disc heights. Posterior elements demonstrate mild narrowing of the apophyseal joints throughout without subluxation. Spinous processes intact. Lung apices clear. XR/XR shoulder RT 1V IMPRESSION: Mild degeneration AC joint. Generalized spurring as above and narrowing the apophyseal joints without subluxation or disc space narrowing.
== END 2021-03-01 10:00 | disposition home or self-care (01) ==
LOC: HO.XRAY 09:59
PROVIDERS: PCP Internal Medicine; Visit Provider Internal Medicine
DX: M54.2 Cervicalgia (principal); M25.511 Pain in right shoulder
CPT/HCPCS: 72040; 73020

== ENCOUNTER → 2021-03-20 12:58 | Outpatient (BNVA) | payer MEDICARE, MEDICAID, SELFPAY | PROVIDERS: PCP Internal Medicine; Visit Provider Student in an Organized Health Care Education/Training Program | CPT/HCPCS: Q3014 ==

== ENCOUNTER 2021-05-03 16:18 | Emergency (ER) | payer MEDICARE, MEDICAID, SELFPAY ==
[2021-05-03 16:50] VITALS: BP 154/74; PULSE 80; RESP 16; TEMP 36.1; O2SAT 95; BMI 33.3
--- NOTE | 2021-05-03 17:51 | ED.GENADULT ---
HPI - General Adult General Chief complaint: Skin/Abscess/Foreign Body Stated complaint: Poison Sakina Time Seen by Provider: 05/03/21 17:50 Source: patient Limitations: no limitations History of Present Illness HPI narrative: Patient presents 2-3 day history of worsening poison sakina on the upper extremities multiple areas of weeping lesions. Very itchy. Symptoms moderate to severe. Patient denies shortness of breath. Patient denies tobacco history. Patient denies history of diabetes. Related Data Home Medications Medication Instructions Recorded Confirmed furosemide 20 mg tablet 40 mg PO DAILY tab 12/05/20 04/12/21 Previous Rx's Medication Instructions Recorded tizanidine 4 mg tablet 4 mg PO BEDTIME 30 Days #30 tab 11/15/20 hydroxyzine HCl 25 mg tablet 25 mg PO BID PRN 30 Days #60 tab 12/10/20 atorvastatin 10 mg tablet 10 mg PO BEDTIME 30 Days #30 tab 01/16/21 nabumetone 750 mg tablet 750 mg PO BID 30 Days #60 tab 02/19/21 omeprazole 20 mg tablet,delayed 20 mg PO DAILY 30 Days #30 tab 03/26/21 release gabapentin 300 mg capsule 300 mg PO BID 30 Days #60 cap 04/05/21 prednisone 10 mg tablet 10 mg PO DAILY #30 tab 05/03/21 Allergies Allergy/AdvReac Type Severity Reaction Status Date / Time tramadol Allergy Intermediate headaches Verified 05/03/21 17:51 Review of Systems Constitutional: Constitutional: Denies chills, Denies fever(s) and Denies headache(s) Eyes: Eyes: Denies change in vision ENT: Denies headache(s) and Denies sore throat Cardiovascular: Cardiovascular: Denies chest pain and Denies dyspnea Respiratory: Respiratory: Denies cough and Denies dyspnea Gastrointestinal: Gastrointestinal: Denies nausea and Denies vomiting Integumentary/Breasts: Skin/Breast: Reports rash (Diffuse upper extremities) Neurologic: Denies headache(s) [facility] Past Medical History Attestation statement: The following information was validated with the patient. Medical History Dyslipidemia GERD (gastroesophageal reflux disease) Hyperlipemia Insomnia Lesion of frontal lobe of brain Multiple sclerosis Neck pain Numbness Polyarthralgia Right shoulder pain Tachycardia Surgical History History of colonoscopy Hx of tubal ligation Family History Family History Father Hypertension Mother Diabetes mellitus Breast cancer Maternal Grandmother Breast cancer Social History Social History Housing: Apartment Alcohol intake: never Patient Tobacco Use Status: Never used Tobacco e-Cigarette/Vaping Use: Never Used Second Hand Smoke Exposure: No Advance Directives: No Advance Directives Information Provided: No service: No Current occupational status: disabled Physical Exam Vital Signs: Vital Signs: Last Vital Signs Temp 97 F 05/03/21 16:50 Pulse 80 05/03/21 16:50 Resp 16 05/03/21 16:50 BP 154/74 H 05/03/21 16:50 Pulse Ox 95 05/03/21 16:50 Body Mass Index 33.3 vital signs have been reviewed as normal and appeared to be correct. Blood pressure normal. Heart rate normal. Respiration rate normal. Temperature normal. Oxygen saturation normal. Appearance: Alert. Oriented X3. No acute distress. Head: Normal external exam. Normocephalic. Atraumatic. Eyes: PERRLA. EOMI. Conjunctiva and sclera normal. Eyelids normal. ENT: Pharynx normal. Uvula midline. Moist mucous membranes. Neck: Soft full range of motion, no JVD CVS: Heart regular rate and rhythm no murmurs and rubs Respiratory: Breath sounds are clear to auscultation bilaterally. No accessory muscle use noted. Back: No CVA tenderness. Full range of motion noted. Skin: Diffuse erythematous rash weeping lesions upper extremities obvious contact dermatitis secondary to poison sakina. Extremities: No lower extremity edema. Extremities exhibit normal range of motion. Extremities nontender. Neuro: Oriented X 3. No motor deficit. No sensory deficit. Reflexes normal. Course Course Course Narrative: Contact dermatitis Poison sakina Cellulitis unlikely Rashes obvious contact dermatitis secondary to poison sakina will give 60 mg prednisone p.o. here at this time. 6:08 p.m. 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 all questions answered Discharge Plan Discharge Clinical Impression: Poison sakina Patient Disposition: Home, Self-Care Instructions: Poison Sakina (ED) Prescriptions: New prednisone 10 mg tablet 10 mg PO DAILY Qty: 30 RF: 0 No Action tizanidine 4 mg tablet 4 mg PO BEDTIME 30 Days Qty: 30 RF: 6 atorvastatin 10 mg tablet 10 mg PO BEDTIME 30 Days Qty: 30 RF: 6 omeprazole 20 mg tablet,delayed release (DR/EC) 20 mg PO DAILY 30 Days Qty: 30 RF: 3 gabapentin 300 mg capsule 300 mg PO BID 30 Days Qty: 60 RF: 6 hydroxyzine HCl 25 mg tablet 25 mg PO BID PRN (Reason: itching) 30 Days Qty: 60 RF: 0 nabumetone 750 mg tablet 750 mg PO BID 30 Days Qty: 60 RF: 1 furosemide 20 mg tablet 40 mg PO DAILY RF: 0 Print Language: Upper Sorbian
[2021-05-03] MEDS: predniSONE 20 MG TABLET 60 MG PO (18:17)
== END 2021-05-03 18:44 | disposition home or self-care (01) ==
LOC: HO.ED 17:56
PROVIDERS: Emergency Provider Emergency Medicine; PCP Internal Medicine
DX: L23.7 Allergic contact dermatitis due to plants, except food (principal); Z79.899 Other long term (current) drug therapy
CPT/HCPCS: 99283

== ENCOUNTER 2021-06-06 13:30 | Outpatient (REF) | payer MEDICARE, MEDICAID, SELFPAY ==
[2021-06-06 15:23] LABS: Appearance Urine CLOUDY; Color Urine YELLOW; Glucose Urine UA NEG (NEG); Leukocyte Esterase Urine 1+ (NEG); Nitrite Urine NEG (NEG); PH 7.5 (5.0-8.0); UACC Culture Trigger YES; Urine Blood 2+ (NEG); Urine Ketones NEG (NEG); Urine Protein TRACE MG/DL (NEG-TRACE)
[2021-06-06 15:26] LABS: Alanine Aminotransferase 18 U/L (0-31); Albumin Level 4.2 g/dL (3.5-5.0); Alkaline Phosphatase 119 U/L (39-117); Anion Gap 13 (12-20); Aspartate Amino Transferase 15 U/L (5-31); Bilirubin Total 0.3 mg/dL (0.0-1.0); Blood Urea Nitrogen 17 mg/dL (9-16); Calcium 9.3 mg/dL (8.4-10.2); Carbon Dioxide 25 mmol/L (22-29); Chloride 109 mmol/L (96-108); Cholesterol 203 mg/dL; Estimated Glomerular Filt Rate > 60; Glucose Fasting 121 mg/dL (60-99); HDL Cholesterol 45 mg/dL; LDL Cholesterol Calculated 131 mg/dl; Potassium 4.3 mmol/L (3.3-5.1); Sodium 143 mmol/L (135-145); Triglycerides 139 mg/dL
[2021-06-06 16:01] LABS: UACC CULT YES; WBC Urine 50-75 /HPF (0-4)
[2021-06-06 16:02] LABS: Amorphous Sediment Urine TRACE /LPF; Bacteria Urine 1+ /LPF; WBC Clumps Urine NOTED
== END 2021-06-06 13:31 | disposition home or self-care (01) ==
LOC: HO.LAB 13:30
PROVIDERS: PCP Internal Medicine; Visit Provider Internal Medicine
DX: E78.5 Hyperlipidemia, unspecified (principal)
CPT/HCPCS: 36415; 80053; 80061; 81001; 87086; 87088; 87186

== ENCOUNTER 2021-06-11 14:15 | Emergency (ER) | payer MEDICARE, MEDICAID, SELFPAY ==
--- NOTE | ~2021-06-11 | XR_ITS ---
EXAMINATION: XR CHEST CLINICAL INFORMATION: Cough. Body ache. COMPARISON: Chest x-ray 08/20/2020 TECHNIQUE: Frontal portable view of the chest was obtained. 4:39 PM FINDINGS: S-shaped scoliosis of the spine. No acute abnormality of the chest. Lungs are normally aerated. There is no pleural effusion and no pneumothorax. Heart size is normal. Cardiac and mediastinal contours are normal. XR/XR chest 1V IMPRESSION: No acute abnormality of chest.
[2021-06-11 15:40] VITALS: BP 188/85; PULSE 73; RESP 20; TEMP 36.8; O2SAT 99; BMI 30.3
--- NOTE | 2021-06-11 16:30 | ED_ITS ---
HPI - URI/Sore Throat General Chief Complaint: Upper Respiratory Symptoms Stated Complaint: sob, cough, headache, congestion Time Seen by Provider: 06/11/21 16:05 Source: patient Mode of arrival: ambulatory Limitations: no limitations History of Present Illness HPI Narrative: 56-year-old female presents to the ED for chills, cough, sore throat, body aches, and headaches at least 4 days. Patient states she is not vaccinated against COVID-19 virus. Patient denies any leg swelling, chest pain or shortness of breath. MD elicited complaint: cough and sore throat Related Data Home Medications Medication Instructions Recorded Confirmed furosemide 20 mg tablet 40 mg PO DAILY tab 12/05/20 04/12/21 Previous Rx's Medication Instructions Recorded tizanidine 4 mg tablet 4 mg PO BEDTIME 30 Days #30 tab 11/15/20 hydroxyzine HCl 25 mg tablet 25 mg PO BID PRN 30 Days #60 tab 12/10/20 atorvastatin 10 mg tablet 10 mg PO BEDTIME 30 Days #30 tab 01/16/21 nabumetone 750 mg tablet 750 mg PO BID 30 Days #60 tab 02/19/21 omeprazole 20 mg tablet,delayed 20 mg PO DAILY 30 Days #30 tab 03/26/21 release gabapentin 300 mg capsule 300 mg PO BID 30 Days #60 cap 04/05/21 prednisone 10 mg tablet 10 mg PO DAILY #30 tab 05/15/21 albuterol sulfate 90 mcg/actuation 2 puff INHALATION QID PRN #8.5 g 06/11/21 aerosol inhaler azithromycin 250 mg tablet See Rx Instructions .ROUTE 06/11/21 .COMPLEX #6 tab prednisone 20 mg tablet 40 mg PO DAILY 5 Days #10 tab 06/11/21 Allergies Allergy/AdvReac Type Severity Reaction Status Date / Time tramadol Allergy Intermediate headaches Verified 06/11/21 15:40 Review of Systems Review of Systems: Yes all other systems are reviewed and are negative Constitutional: Constitutional: Reports as per HPI, Reports no additional constitutional complaints, Reports body ache(s), Reports chills and Reports headache(s) Eyes: Eyes: Reports as per HPI and Reports no additional eye complaints ENT: Reports system reviewed and no additional complaints, except as documented, Reports as per HPI, Reports headache(s) and Reports sore throat Cardiovascular: Cardiovascular: Reports as per HPI, Reports no additional cardiovascular complaints, Denies chest pain, Denies chest pain at rest and Denies chest pain with activity Respiratory: Respiratory: Reports as per HPI, Reports no additional respir atory complaints and Reports cough Gastrointestinal: Gastrointestinal: Reports as per HPI and Reports no additional gastrointestinal complaints Genitourinary: Genitourinary: Reports no additional female genitourinary complaints and Reports as per HPI Musculoskeletal: Musculoskeletal: Reports no additional musculoskeletal complaints and Reports as per HPI Neurologic: Reports system reviewed and no additional complaints, except as documented, Reports as per HPI and Reports headache(s) Psychiatric: Psychiatric: Reports no additional psychiatric complaints and Reports as per HPI [facility] Past Medical History Medical History Dyslipidemia GERD (gastroesophageal reflux disease) Hyperlipemia Insomnia Lesion of frontal lobe of brain Multiple sclerosis Neck pain Numbness Polyarthralgia Right shoulder pain Tachycardia Surgical History History of colonoscopy Hx of tubal ligation Family History Family History Father Hypertension Mother Diabetes mellitus Breast cancer Maternal Grandmother Breast cancer Social History Social History Housing: Apartment Alcohol intake: never Patient Tobacco Use Status: Never used Tobacco e-Cigarette/Vaping Use: Never Used Second Hand Smoke Exposure: No Advance Directives: No Advance Directives Information Provided: No Patient : No service: No Current occupational status: disabled Physical Exam Vital Signs: Vital Signs: Last Vital Signs Temp 98.3 F 06/11/21 15:40 Pulse 73 06/11/21 15:40 Resp 20 06/11/21 15:40 BP 188/85 H 06/11/21 15:40 Pulse Ox 99 06/11/21 15:40 Body Mass Index 30.3 Const: General: cooperative, healthy appearing, comfortable, no acute distress, well developed, alert, awake and Physically active Orientation/consciousness: patient oriented x3 HENMT: Head: Yes normal to inspection, Yes No palpable skull fracture present, Yes normocephalic, Yes atraumatic and No abrasion Eyes: General: appearance normal, both eyes and all related structures Pupils: Equal, round and reactive pupils present Neck: Neck: Yes normal visual inspection, Yes full ROM, Yes no lymphadenopathy, Yes no meningeal signs, Yes trachea midline, Yes supple, No anterior neck swelling and No tender Chest: Chest palpation & inspection: normal inspection of the chest and normal palpation of entire chest wall Resp: Effort & Inspection: normal respiratory effort and able to speak in complete sentences Auscultation: wheezes expiratory wheezes Cardio: Jugular venous distension: no JVD Heart sounds: S1 normal heart sound present and S2 normal heart sound present GI: Inspection: Yes normal to inspection and No abdominal wall ecchymosis Palpation (GI): Soft to palpation, not firm, nontender, no guarding and not rigid : General: No CVA tenderness and Yes no CVA tenderness Back/Spine/Pelvis: Back: no CVA tenderness, No CVA tenderness and No back tenderness Skin: General skin exam: no rashes or lesions noted and elasticity normal Neuro: General: patient oriented x3, gait normal, tone normal, moves all extremities, Normal light touch and pain sensation, no meningeal signs, no focal motor deficits, CN's II-XI intact bilaterally, normal sensation to monofilament and deep tendon reflexes 2+ bilaterally Cranial nerves: Yes CN's II-XII intact bilaterally, Yes Facial sensation intact/muscles of mastication intact, Yes Intact sense of smell present, Yes Equal, round and reactive pupils present, Yes Normal accommodation reflex present, Yes Bilaterally intact EOM present, Yes Nystagmus not present, Yes Normal facial strength present, Yes Midline tongue present and Yes Normal gag reflex present Extrem: Other: Lower extremities negative for swelling, pitting edema, or calf tenderness Psych: Appearance: grossly normal, well kempt and not disheveled Course Course Course Narrative: Patient vital signs are stable. Patient is not hypoxic. Patient will have x-ray COVID swab and strep test ordered. Reevaluation(s) Reevaluation #1: Patient's COVID swab, flu, RSV, influenza, and strep came back negative. Chest x-ray negative for pneumonia. Diagnosis bronchitis. Patient will be discharged with albuterol inhaler, steroids, and azithromycin. Patient blood pressure hypertensive but is asymptomatic. Patient informed to follow-up with primary care provider for her blood pressure. Time: 17:30 MDM - URI/Sore Throat MDM Narrative Medical decision making narrative: URI Lab Data Labs: Lab Results 06/11/21 06/11/21 Range/Units 16:20 16:20 Influenza Type A (PCR) NEGATIVE (Negative) Influenza Type B (PCR) NEGATIVE (Negative) RSV RNA Qual (PCR) NEGATIVE (Negative) SARS-CoV-2 RNA (RT-PCR) NEGATIVE (Negative) S. pyogenes GrpA RADHA Negative (Negative) Discharge Plan Discharge Clinical Impression: Upper respiratory infection Patient Disposition: Home, Self-Care Instructions: Upper Respiratory Infection (ED), Acute Bronchitis (ED) Additional Instructions: Isaac radiograf?a de t?rax result? normal. Isaac hisopo de COVID, influenza, RSV y estreptococos result? negativo. Ser? dado de enriqueta con bomba de albuterol, esteroides y azitromicina y ser? tratado ranjan bronquitis. Regrese al servicio de urgencias de inmediato si tiene dolor en el pecho, dificultad para respirar, hinchaz?n de las extremidades inferiores, dolor en la pantorrilla, tos con kallie, fiebre, escalofr?os, debilidad, mareos, s?ncope o cualquier otro s?ntoma preocupante. Shellie un seguimiento con el proveedor de atenci?n primaria. Prescriptions: New prednisone 20 mg tablet 40 mg PO DAILY 5 Days Qty: 10 RF: 0 azithromycin 250 mg tablet See Rx Instructions .ROUTE .COMPLEX Qty: 6 RF: 0 albuterol sulfate 90 mcg/actuation HFA aerosol inhaler 2 puff inhalation QID PRN (Reason: shortness of breath or wheezing) Qty: 8.5 RF: 0 No Action tizanidine 4 mg tablet 4 mg PO BEDTIME 30 Days Qty: 30 RF: 6 atorvastatin 10 mg tablet 10 mg PO BEDTIME 30 Days Qty: 30 RF: 6 omeprazole 20 mg tablet,delayed release (DR/EC) 20 mg PO DAILY 30 Days Qty: 30 RF: 3 gabapentin 300 mg capsule 300 mg PO BID 30 Days Qty: 60 RF: 6 prednisone 10 mg tablet 10 mg PO DAILY Qty: 30 RF: 0 hydroxyzine HCl 25 mg tablet 25 mg PO BID PRN (Reason: itching) 30 Days Qty: 60 RF: 0 nabumetone 750 mg tablet 750 mg PO BID 30 Days Qty: 60 RF: 1 furosemide 20 mg tablet 40 mg PO DAILY RF: 0 Interventions: ED Discharge Assessment Last Done: 06/11/21 20:34 Discharge Date/Time: 06/11/21 20:34 Print Language: Ukrainian
[2021-06-11 16:41] LABS: IDNOW Serial# 08D9AD1C; Strep A Nucleic Acid Negative (Negative)
[2021-06-11] MEDS: Albuterol Sulfate 90 MCG 8 GM INHALER 4 PUFF INHALE (16:47)
[2021-06-11] MEDS: predniSONE 20 MG TABLET 60 MG PO (16:57)
[2021-06-11 17:19] LABS: Influenza A PCR NEGATIVE (Negative); Influenza B PCR NEGATIVE (Negative); Resp Syncy Virus RNA Qual PCR NEGATIVE (Negative); SARS COV2 PCR INHOUSE NEGATIVE (Negative)
== END 2021-06-11 20:34 | disposition home or self-care (01) ==
PROVIDERS: Physician Assistant; Emergency Provider Emergency Medicine; PCP Internal Medicine
DX: J06.9 Acute upper respiratory infection, unspecified (principal); R06.02 Shortness of breath; R05.9 Cough, unspecified; R51.9 Headache, unspecified; Z20.822 Contact with and (suspected) exposure to COVID-19; Z79.899 Other long term (current) drug therapy
CPT/HCPCS: 0241U; 36415; 71045; 87651; 99283; 99284

== ENCOUNTER 2021-06-18 13:02 | Outpatient (REF) | payer MEDICARE, MEDICAID, SELFPAY ==
--- NOTE | ~2021-06-18 | MM_ITS ---
EXAMINATION: MM SCREENING DIGITAL BREAST TOMOSYNTHESIS, BILATERAL CLINICAL INFORMATION: Screening. Asymptomatic. Benign left stereotactic biopsy 10/01/2015 (Sclerosing adenosis with microcalcifications. Remain tissue: Nonproliferative fibrocystic changes). The lifetime risk of breast cancer based on the Tyrer-Cuzick Model is 13%. COMPARISON: Mammography: 06/15/2020, 09/22/2017, 09/11/2017, 09/08/2017, 05/22/2016 TECHNIQUE: Digital breast tomosynthesis is performed in both the craniocaudal and mediolateral oblique views along with computer-aided detection (CAD). Synthesized 2D images are generated from the tomosynthesis. FINDINGS: There are scattered areas of fibroglandular density (ACR BI-RADS breast composition Category b). Breast tissue composition borders on heterogeneously dense. Parenchymal pattern is similar to prior studies. No developing density. No architectural abnormality. There is a biopsy clip marker again seen upper outer quadrant left breast with some stable adjacent punctate calcifications, some appear vascular. There are no abnormal calcifications. No significant changes. MM/MM tomosynthesis screening BI IMPRESSION: No mammographic evidence of malignancy. ASSESSMENT: BI-RADS 2: Benign RECOMMENDATION: Routine annual mammography screening. This patient's information was entered into a reminder system with a target due date for their next mammogram.
== END 2021-06-18 13:03 | disposition home or self-care (01) ==
LOC: HO.MAMMO 13:02
PROVIDERS: Visit Provider Internal Medicine
DX: Z12.31 Encounter for screening mammogram for malignant neoplasm of breast (principal)
CPT/HCPCS: 77063; 77067

== ENCOUNTER 2022-06-25 09:19 | Outpatient (REF) | payer MEDICARE, MEDICAID, SELFPAY ==
[2022-06-25 11:24] LABS: Alanine Aminotransferase 29 U/L (0-31); Albumin Level 4.3 g/dL (3.5-5.0); Alkaline Phosphatase 131 U/L (39-117); Anion Gap 13 (12-20); Aspartate Amino Transferase 18 U/L (5-31); Bilirubin Total 0.4 mg/dL (0.0-1.0); Blood Urea Nitrogen 21 mg/dL (9-16); Calcium 9.5 mg/dL (8.4-10.2); Carbon Dioxide 26 mmol/L (22-29); Chloride 106 mmol/L (96-108); Cholesterol 207 mg/dL; Estimated Glomerular Filt Rate > 60; Glucose Fasting 99 mg/dL (60-99); HDL Cholesterol 37 mg/dL; LDL Cholesterol Calculated 123 mg/dl; Potassium 4.3 mmol/L (3.3-5.1); Sodium 141 mmol/L (135-145); Total Protein 7.1 g/dL (6.5-8.0); Triglycerides 236 mg/dL; Vitamin D 25-OH Total 12.6 ng/mL (>30)
== END 2022-06-25 09:20 | disposition home or self-care (01) ==
LOC: HO.LAB 09:19
PROVIDERS: PCP Internal Medicine; Visit Provider Internal Medicine
DX: E55.9 Vitamin D deficiency, unspecified (principal); G35 Multiple sclerosis; G93.9 Disorder of brain, unspecified; E78.5 Hyperlipidemia, unspecified; R00.0 Tachycardia, unspecified
CPT/HCPCS: 36415; 80053; 80061; 82306

== ENCOUNTER 2022-07-01 12:56 | Outpatient (REF) | payer MEDICARE, MEDICAID, SELFPAY ==
--- NOTE | ~2022-07-01 | MM_ITS ---
EXAMINATION: MM SCREENING DIGITAL BREAST TOMOSYNTHESIS, BILATERAL CLINICAL INFORMATION: Screening. Asymptomatic. Family history breast cancer, mother. Benign left stereotactic biopsy 10/01/2015 (sclerosing adenosis with microcalcifications, nonproliferative fibrocystic changes). The lifetime risk of breast cancer based on the Tyrer-Cuzick Model is 10%. COMPARISON: Mammography: 06/18/2021, 06/15/2020, 09/22/2017, 09/11/2017, 09/08/2017 TECHNIQUE: Digital breast tomosynthesis is performed in both the craniocaudal and mediolateral oblique views along with computer-aided detection (CAD). Synthesized 2D images are generated from the tomosynthesis. FINDINGS: There are scattered areas of fibroglandular density (ACR BI-RADS breast composition Category b). Parenchymal pattern is similar to prior studies and there is no interval mass or developing density or architectural abnormality. No abnormal calcifications. Biopsy clip marker again noted posterior upper outer left breast with stable to decreased calcifications. The axilla are unremarkable. There are no significant changes. MM/MM tomosynthesis screening BI IMPRESSION: No mammographic evidence of malignancy. ASSESSMENT: BI-RADS 2: Benign RECOMMENDATION: Routine annual mammography screening. This patient's information was entered into a reminder system with a target due date for their next mammogram.
== END 2022-07-01 12:57 | disposition home or self-care (01) ==
LOC: HO.MAMMO 12:56
PROVIDERS: PCP Internal Medicine; Visit Provider Internal Medicine
DX: Z12.31 Encounter for screening mammogram for malignant neoplasm of breast (principal)
CPT/HCPCS: 77063; 77067

== ENCOUNTER 2022-07-04 14:55 | Outpatient (REF) | payer MEDICARE, MEDICAID, SELFPAY ==
--- NOTE | ~2022-07-04 | MR_ITS ---
EXAMINATION: MR BRAIN WITHOUT AND WITH CONTRAST CLINICAL INFORMATION: Multiple sclerosis. COMPARISON: Brain MRI from 02/26/2021. TECHNIQUE: MRI of the brain was obtained using routine sequences without and with contrast using MS protocol following the administration of 8.5 mL of Gadavist intravenous contrast. FINDINGS: There are multiple T2/FLAIR hyperintense lesions consistent with an underlying diagnosis of demyelination. This includes lesions within the subcortical, deep white matter, periventricular, callosal, brainstem, and cerebellar distributions. New Lesions: None. Enhancing Lesions: None. Restricted Diffusion: None. T1 Black Holes: Approximately 5. Volume Loss: None. Additional Findings: No evidence of edema or expansion of the optic nerves. No focal restricted diffusion is seen to suggest acute or subacute cerebral ischemia. No intracranial mass, intra-axial blood products, midline shift, or extra-axial collection is demonstrated. The ventricles and sulcal spaces appear normal. The sella turcica is mildly expanded with flattening of the pituitary gland. Normal arterial and venous vascular flow voids are present. No signal abnormalities within the superior sagittal or transverse sinuses. Mild mucosal thickening of the paranasal sinuses. Mild leftward nasal septal deviation. No signal abnormalities within the mastoids. MR/MR head/brain wo/w con IMPRESSION: Stable distribution and degree of nonenhancing T2 FLAIR hyperintensities consistent with underlying demyelination in the appropriate clinical setting. No evidence of disease progression.
== END 2022-07-04 14:56 | disposition home or self-care (01) ==
LOC: HO.MRI 14:55
PROVIDERS: Visit Provider Internal Medicine
DX: G93.9 Disorder of brain, unspecified (principal); G35 Multiple sclerosis
CPT/HCPCS: 70553; A9585

== ENCOUNTER 2022-09-25 14:19 | Outpatient (REF) | payer MEDICARE, MEDICAID, SELFPAY ==
--- NOTE | ~2022-09-25 | XR_ITS ---
EXAMINATION: XR CHEST CLINICAL INFORMATION: Dyspnea. COMPARISON: Chest radiograph 06/11/2021. TECHNIQUE: 2 views of the chest were obtained. FINDINGS: Stable appearance of the cardiomediastinal silhouette. No focal airspace opacity, pleural effusion or pneumothorax. Thoracal lumbar scoliosis. No acute osseous abnormalities. XR/XR chest 2V IMPRESSION: No acute cardiopulmonary findings.
[2022-09-25 15:13] LABS: Influenza A PCR NEGATIVE (Negative); Influenza B PCR NEGATIVE (Negative); Resp Syncy Virus RNA Qual PCR NEGATIVE (Negative); SARS COV2 PCR INHOUSE NEGATIVE (Negative)
== END 2022-09-25 14:20 | disposition home or self-care (01) ==
LOC: HO.LAB 14:19
PROVIDERS: PCP Internal Medicine; Visit Provider Internal Medicine
DX: R06.00 Dyspnea, unspecified (principal); Z20.822 Contact with and (suspected) exposure to COVID-19
CPT/HCPCS: 0241U; 71046

== ENCOUNTER 2023-04-15 17:05 | Outpatient (AMB) | payer OTHER, SELFPAY ==
--- NOTE | 2023-04-15 17:21 | MHC.PC.OV ---
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 Accompanied by: Self / Same As Patient Allergies tramadol Allergy (Intermediate, Verified 04/15/23 17:38) headaches Medication List - Last Reconciled 04/15/23 by Lillian Álvarez MD albuterol sulfate 90 mcg/actuation 2 puffs inhalation QID PRN atorvastatin 10 mg PO BEDTIME 90 days benzonatate 100 mg PO BID PRN 5 days doxycycline hyclate 100 mg PO BID 5 days gabapentin 300 mg PO BID 30 days nabumetone 750 mg PO BID 30 days omeprazole 20 mg PO DAILY 90 days tizanidine 4 mg PO BEDTIME 30 days Ventolin HFA 90 mcg/actuation (albuterol sulfate) 2 puffs inhalation Q6H PRN 30 days NS Tobacco use date assessed: 06/20/22 HPI HPI Comments History of Present Illness Details This is a 58-year-old female with dyslipidemia, GERD and fibromyalgia that comes today complaining of pain in right side of the head involving front head, right eye, right ear and jaw more prominent when she chews. Denies any blurry vision and has extraocular movements intact. No hearing loss. Some numbness in the area but no swelling. She has multiple sclerosis and last MRI of the brain was done June 2022 which showed which shows that the kneeling eating lesions are stable. On statins for dyslipidemia and lipid panel will be order. GERD stable with PPIs. On gabapentin for fibromyalgia. [facility] Medical History (Updated 09/25/22 @ 12:59 by Lillian Álvarez MD) Lesion of frontal lobe of brain Right shoulder pain Tachycardia Neck pain Numbness Insomnia GERD (gastroesophageal reflux disease) Dyslipidemia Polyarthralgia Multiple sclerosis Hyperlipemia Surgical History History of colonoscopy Hx of tubal ligation Family History Father Hypertension Mother Diabetes mellitus Breast cancer Maternal Grandmother Breast cancer Social History Housing: Apartment Alcohol intake: never Patient Tobacco Use Status: Never used Tobacco e-Cigarette/Vaping Use: Never Used Second Hand Smoke Exposure: No service: No Current occupational status: disabled Cognitive needs: No Hearing needs: No Vision needs: No Questionnaire PHQ-9 Over the last 2 weeks, how often have you been bothered by any of the following problems? 1. Little interest or pleasure in doing things: not at all 2. Feeling down, depressed, or hopeless: not at all 3. Trouble falling or staying asleep, or sleeping too much: nearly every day 4. Feeling tired or having little energy: not at all 5. Poor appetite or overeating: not at all 6. Feeling bad about yourself - or that you are a failure or have let yourself or your family down: not at all 7. Trouble concentrating on things, such as reading the newspaper or watching television: not at all 8. Moving or speaking so slowly that other people could have noticed. Or the opposite - being so fidgety or restless that you have been moving around a lot more than usual: not at all 9. Thoughts that you would be better off or of hurting yourself in some way: not at all Total score: 3 Depression Screening Interpretation: Positive Depression Screening Follow-up: Existing condition Depression Screening Done: Yes 10413 - PHQ-9 Billing: Yes Source: Developed by Drs. Jesse White, Jaz Carrion, Giovanny Mckinley and colleagues, with an educational gopi from [employer]. Thrive Questionnaire Date Thrive assessed: 04/15/23 I am a: Patient What is your living situation today?: I have a steady place to live Within the past 12 months, did the food you bought not last and you didn't have the money to get more?: Never true Within the past 12 months, did you worry whether your food would run out before you got money to buy more?: Never true Do you have trouble paying for medicines?: No Do you have trouble getting transportation to medical appointments?: No Do you have trouble paying your heating and electricity bill?: No Do you have trouble taking care of your child, family member or friend?: No Do you have trouble with day-to-day activities such as bathing, preparing meals, shopping, managing finances, etc.?: No Are you currently unemployed and looking for a job?: No Are you interested in more education?: No Please select the resources that you would like help with: None Currently or been in a relationship where the following occur: no concerns reported AUDIT C Alcohol Use Questionnaire (AUDIT-C) 1. How often do you have a drink containing alcohol?: Never Total Score: 0 Score Reviewed/Action Taken: No DERRICK-7 AMB Questionnaire DERRICK-7 Date DERRICK - 7 assessed: 04/15/23 Feeling nervous, anxious, or on edge: 0 = Not at all Not being able to stop or control worryin = Not at all Worrying too much about different things: 0 = Not at all Trouble relaxin = Not at all Being so restless that it is hard to sit still: 0 = Not at all Becoming easily annoyed or irritable: 0 = Not at all Feeling afraid as if something awful might happen: 0 = Not at all Total DERRICK-7 score (0-4 normal; 5-9 mild; 10-14 moderate; 15-21 severe): 0 Source: Developed by Drs. Jesse White, Jaz Carrion, Giovanny Mckinley and colleagues, with an educational gopi from [employer]. DERRICK-7 Assessment Billing DERRICK-7 Assessment Tool: DERRICK-7 Assessment 47550 Review of Systems Const All systems reviewed & are unremarkable except as noted in HPI and below Eyes Reports no additional complaints, Denies change in vision and Denies other visual disturbances Card Denies chest pain at rest, Denies chest pain with activity, Denies edema, Denies irregular heart rhythm, Denies claudication, Denies dyspnea, Denies dyspnea on exertion, Denies orthopnea, Denies paroxysmal nocturnal dyspnea and Denies slow heart rate Resp Denies cough, Denies dyspnea and Denies dyspnea on exertion GI Denies abdominal pain, Denies change in bowel habits, Denies excessive flatus, Denies nausea and Denies vomiting Denies urinary incontinence, Denies urinary hesitancy and Denies urinary urgency Musc Denies abnormal gait, Denies atrophy, Denies deformity and Denies limited range of motion Skin/Breast Denies bleeding lesions, Denies changing lesions and Denies rash Neuro Denies abnormal gait and Denies lack of coordination Physical exam (Primary Care) Vital Signs: Last Vital Signs BP 122/80 04/15/23 17:22 BMI result Body Mass Index 32.9 Tobacco/Smoking Status: Tobacco use Status Tobacco use date assessed 06/20/22 04/15/23 17:24 Patient Tobacco Use Status Never used Tobacco 04/15/23 17:24 e-Cigarette/Vaping Use Never Used 04/15/23 17:24 PHQ-9: PHQ-9 Score PHQ-9: Total score 3 04/15/23 17:45 Depression Screening Interpretation: Positive Depression Screening Follow-up: Existing condition Thrive Assessment: Date of Thrive Assessment Date Thrive assessed 04/15/23 04/15/23 17:29 Currently or been in a relationship where the following occur: no concerns reported Const Orientation/consciousness: patient oriented x3 HENMT Head: Yes normal to inspection, Yes normocephalic and Yes atraumatic Ears: external ears normal General nose exam: Normal external nose present and No nasal discharge present Face and sinus: Yes sinuses nontender Mouth: lip normal Eyes General: appearance normal, both eyes and all related structures Eyelids: Yes eyelids normal Conjunctivae: conjunctivae normal Resp Effort & Inspection: normal respiratory effort Auscultation: clear to auscultation bilaterally Cardio Jugular venous distension: no JVD Rate: regular rate Rhythm: regular rhythm Heart sounds: S1 normal heart sound present and S2 normal heart sound present Neuro General: patient oriented x3 and no focal motor deficits Extrem General: Yes full ROM Office Procedures Flu Questionnaire Does the patient have a severe egg allergy?: No Immunizations flu vacc [id number] 6mos up(PF) 60 mcg(15 mcgx4)/0.5 mL IM syringe Performing Provider: Lillian Álvarez MD [facility] [place] [facility] Documented (not given) by: DILCIA Bloom on 04/15/23 17:30 Reason Not Given: Patient Refused Assessment and Plan Assessment & Plan (1) Discomfort of right ear: Code(s): H92.01 - Otalgia, right ear Plan: CT of mastoid order. (2) Dyslipidemia: Code(s): E78.5 - Hyperlipidemia, unspecified Plan: Continue statins. (3) GERD (gastroesophageal reflux disease): Code(s): K21.9 - Gastro-esophageal reflux disease without esophagitis Qualifiers: Esophagitis presence: esophagitis presence not specified Qualified Code(s): K21.9 - Gastro-esophageal reflux disease without esophagitis Plan: Continue PPIs. (4) Fibromyalgia: Code(s): M79.7 - Fibromyalgia Plan: Continue gabapentin. (5) Multiple sclerosis: Code(s): G35 - Multiple sclerosis Plan: MRI of the brain ordered Orders: Orders Lipid Panel Today E78.5 - Hyperlipidemia, unspecified Influenza [id number] Immunization Today Z23 - Encounter for immunization CT mastoid Today H92.01 - Otalgia, right ear Erythrocyte Sedimentation Rate Today M25.50 - Pain in unspecified joint MR head/brain wo con Today G35 - Multiple sclerosis, R20.0 - Anesthesia of skin Comprehensive [place]. Panel Fast Today M25.50 - Pain in unspecified joint Complete Blood Count Auto Diff Today M25.50 - Pain in unspecified joint Medications: Discontinued benzonatate Discontinued Reason: Patient Completed Course 100 mg PO BID 5 days PRN 10 caps 0RF cough doxycycline hyclate Discontinued Reason: Patient Completed Course 100 mg PO BID 5 days 10 tabs 0RF Coding Level of Care Code Est Pt Level 4 (58806) Diagnoses Discomfort of right ear H92.01 Dyslipidemia E78.5 Gastroesophageal reflux disease, unspecified whether esophagitis present K21.9 Esophagitis presence: esophagitis presence not specified Fibromyalgia M79.7 Multiple sclerosis G35 Additional Codes DERRICK-7 Assessment Billing - DERRICK-7 Assessment Tool: DERRICK-7 Assessment [id number] ([id number]) Time Spent (min) 21
[2023-04-15 17:22] VITALS: BP 122/80; BMI 32.9
== END 2023-04-15 17:46 | disposition home or self-care (01) ==
LOC: HO.HMGH 17:05
PROVIDERS: PCP Internal Medicine; Visit Provider Internal Medicine
DX: G35 Multiple sclerosis (principal); H92.01 Otalgia, right ear; E78.5 Hyperlipidemia, unspecified; K21.9 Gastro-esophageal reflux disease without esophagitis; M79.7 Fibromyalgia; Z23 Encounter for immunization
CPT/HCPCS: 99214

== ENCOUNTER 2023-04-18 06:49 | Outpatient (REF) | payer OTHER, SELFPAY | END 2023-04-18 06:50 | disposition home or self-care (01) | LOC: HO.LAB 06:49 | PROVIDERS: PCP Internal Medicine; Visit Provider Internal Medicine | DX: E78.5 Hyperlipidemia, unspecified (principal); M25.50 Pain in unspecified joint | CPT/HCPCS: 36415; 80053; 80061; 85025; 85652 ==

== ENCOUNTER 2023-06-10 17:15 | Outpatient (REF) | payer OTHER, SELFPAY ==
--- NOTE | ~2023-06-10 | MR_ITS ---
EXAMINATION: MR BRAIN WITHOUT CONTRAST CLINICAL INFORMATION: Multiple sclerosis COMPARISON: MR brain 07/04/2022 TECHNIQUE: MRI of the brain was obtained using routine sequences without contrast. FINDINGS: Stable burden of demyelinating disease as described previously without definite new lesions identified. Partially imaged suspected demyelinating disease in the dorsal cord at C2-C3, which would be better assessed on cervical spine MRI. No acute infarct. No acute intracranial hemorrhage or extra-axial fluid collection. The ventricles and sulci are normal in size and configuration without significant volume loss or hydrocephalus No mass lesion, mass effect, or herniation pattern. Normal intracranial arterial and dural venous sinus flow voids. Redemonstrated expanded partially empty sella. The orbits are grossly unremarkable. Redemonstrated sigmoidal nasal septal deviation with more pronounced leftward curvature and leftward bony spur impinging upon the left-sided nasal turbinates. Mild paranasal sinus mucosal thickening. Trace left mastoid effusion and mucosal thickening within the left mastoid air cells. Normal marrow signal. MR/MR head/brain wo con IMPRESSION: 1. Stable burden of demyelinating disease without disease progression. Partially imaged suspected demyelinating disease in the dorsal cord at C2-C3, which would be better assessed on cervical spine MRI. 2. No new acute intracranial process. 3. Redemonstrated expanded partially empty sella.
== END 2023-06-10 17:16 | disposition home or self-care (01) ==
LOC: HO.MRI 17:15
PROVIDERS: PCP Internal Medicine; Visit Provider Internal Medicine
DX: G35 Multiple sclerosis (principal); R20.0 Anesthesia of skin
CPT/HCPCS: 70551

== ENCOUNTER 2023-09-18 12:32 | Outpatient (AMB) | payer OTHER, SELFPAY ==
[2023-09-18 12:34] VITALS: BP 102/80; BMI 30.7
--- NOTE | 2023-09-18 12:34 | A.OFFPC_ITS ---
Vital Signs 09/18/23 12:34 Height 5 ft 2 in Weight 168 lb BMI 30.7 BP 102/80 Blood Pressure Location Lt brachial Position Sitting Intake Visit Reasons: ? 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 Accompanied by: Self / Same As Patient Allergies tramadol Allergy (Intermediate, Verified 09/18/23 12:53) headaches Medication List - Last Reconciled 09/18/23 by Lillian Álvarez MD albuterol sulfate 90 mcg/actuation 2 puffs inhalation QID PRN atorvastatin 20 mg PO BEDTIME 90 days gabapentin 300 mg PO BID 30 days ibuprofen 800 mg PO TID PRN 30 days omeprazole 20 mg PO DAILY 90 days tizanidine 4 mg PO BEDTIME 30 days Ventolin HFA 90 mcg/actuation (albuterol sulfate) 2 puffs inhalation Q6H PRN 30 days NS Tobacco use date assessed: 09/18/23 Dental Screening Dental Screen Date: 09/18/23 Did you have a dental visit in the last 12 months?: No Did you have a dental problem in the last 6 months where you did not have access to dental care?: No Was dental information given to patient?: Patient has dentist HPI HPI Comments History of Present Illness Details This is a 58-year-old female with GERD, dyslipidemia, mild asthma and multiple sclerosis that comes today complaining of dysuria that started 3 days ago associated with foul-smelling urine and low back pain. She does have chills at night but has not take her temperature. I will order urine culture and start her on antibiotics. GERD stable with PPIs. Lipid panel was order for the next office visit. Use rescue inhaler less than once a month. Had MRI of the brain done May 2023 shows stable demyelinating lesion and will be referred to Neurology. Her younger sister has multiple sclerosis and is currently on treatment. [facility] Medical History (Updated 09/18/23 @ 13:01 by Lillian Álvarez MD) Lesion of frontal lobe of brain Right shoulder pain Tachycardia Neck pain Numbness Insomnia GERD (gastroesophageal reflux disease) Dyslipidemia Polyarthralgia Multiple sclerosis Hyperlipemia Surgical History History of colonoscopy Hx of tubal ligation Family History Father Hypertension Mother Diabetes mellitus Breast cancer Maternal Grandmother Breast cancer Social History Housing: Apartment Alcohol intake: never Patient Tobacco Use Status: Never used Tobacco e-Cigarette/Vaping Use: Never Used Second Hand Smoke Exposure: No service: No Current occupational status: disabled Cognitive needs: No Hearing needs: No Vision needs: No Questionnaire Thrive Questionnaire Date Thrive assessed: 04/15/23 DERRICK-7 AMB Questionnaire DERRICK-7 Date DERRICK - 7 assessed: 04/15/23 Source: Developed by Drs. Jesse White, Jaz Carrion, Giovanny Mckinley and colleagues, with an educational gopi from [employer]. Review of Systems Const All systems reviewed & are unremarkable except as noted in HPI and below Eyes Reports no additional complaints, Denies change in vision and Denies other visual disturbances Card Denies chest pain at rest, Denies chest pain with activity, Denies edema, Denies irregular heart rhythm, Denies claudication, Denies dyspnea, Denies dyspnea on exertion, Denies orthopnea, Denies paroxysmal nocturnal dyspnea and Denies slow heart rate Resp Denies cough, Denies dyspnea and Denies dyspnea on exertion GI Denies abdominal pain, Denies change in bowel habits, Denies excessive flatus, Denies nausea and Denies vomiting Denies urinary incontinence, Reports urinary hesitancy and Reports urinary urgency Musc Denies abnormal gait, Denies atrophy, Denies deformity and Denies limited range of motion Skin/Breast Denies bleeding lesions, Denies changing lesions and Denies rash Neuro Denies abnormal gait and Denies lack of coordination Physical exam (Primary Care) Vital Signs: Last Vital Signs BP 102/80 09/18/23 12:34 BMI result Body Mass Index 30.7 Tobacco/Smoking Status: Tobacco use Status Tobacco use date assessed 09/18/23 09/18/23 12:45 Patient Tobacco Use Status Never used Tobacco 09/18/23 12:36 e-Cigarette/Vaping Use Never Used 09/18/23 12:36 Thrive Assessment: Date of Thrive Assessment Date Thrive assessed 04/15/23 09/18/23 12:36 Eyes General: appearance normal, both eyes and all related structures Eyelids: Yes eyelids normal Conjunctivae: conjunctivae normal Neck Neck: Yes normal visual inspection and Yes supple Resp Effort & Inspection: normal respiratory effort Auscultation: clear to auscultation bilaterally Cardio Jugular venous distension: no JVD Rate: regular rate Rhythm: regular rhythm Heart sounds: S1 normal heart sound present and S2 normal heart sound present Extrem General: Yes full ROM Results AMB Urinalysis, Automated UA Leukoctes 3 Adam/uL Last Edit by Minor Howard Aundrea on 09/18/23 12:49 UA Nitrite Positive Last Edit by Minor Howard A on 09/18/23 12:49 UA Urobilinogen 0.2 mg/dL Last Edit by Minor Howard [facility] on 09/18/23 12: 49 UA Protein 1 mg/dL Last Edit by Minor Howard [facility] on 09/18/23 12:49 UA pH 6.0 Last Edit by Minor Howard, [facility] on 09/18/23 12:49 UA Blood 0 Michel/uL Last Edit by Minor Howard, [facility] on 09/18/23 12:49 UA Specific [place] 1.020 Last Edit by Minor Howard, [facility] on 09/18/23 12 :49 UA Ketone Negative Last Edit by Minor Howard [facility] on 09/18/23 12:49 UA Bilirubin 0 mg/dL Last Edit by Minor Howard, A on 09/18/23 12:49 UA Glucose 0 mg/dL Last Edit by Minor Howard [facility] on 09/18/23 12:49 Results Reviewed Results Reviewed: Laboratory Last Values Urine pH (Auto) 6.0 09/18/23 12:45 Specific [place] (Auto) 1.020 09/18/23 12:45 Urine Protein (Auto) 1 mg/dL 09/18/23 12:45 Glucose (UA)(Auto) 0 mg/dL 09/18/23 12:45 Urine Ketones (Auto) Negative 09/18/23 12:45 Urine Blood (Auto) 0 Michel/uL 09/18/23 12:45 Urine Nitrite (Auto) Positive 09/18/23 12:45 Urine Bilirubin (Auto) 0 mg/dL 09/18/23 12:45 Urine Urobilinogen (Auto) 0.2 mg/dL 09/18/23 12:45 Leukocyte Esterase (Auto) 3 Adam/uL 09/18/23 12:45 Assessment and Plan Assessment & Plan (1) UTI (urinary tract infection): Code(s): N39.0 - Urinary tract infection, site not specified Plan: Start Bactrim. Urine culture ordered. (2) Multiple sclerosis: Code(s): G35 - Multiple sclerosis Plan: Referred to neurology. (3) GERD (gastroesophageal reflux disease): Code(s): K21.9 - Gastro-esophageal reflux disease without esophagitis Qualifiers: Esophagitis presence: esophagitis presence not specified Qualified Code(s): K21.9 - Gastro-esophageal reflux disease without esophagitis Plan: Continue PPIs. (4) Dyslipidemia: Code(s): E78.5 - Hyperlipidemia, unspecified Plan: Continue statins. Repeat lipid panel. (5) Mild asthma: Code(s): J45.909 - Unspecified asthma, uncomplicated Plan: Use rescue inhaler as needed. Orders: Orders AMB Urinalysis Automated Today R30.0 - Dysuria Lipid Panel 6 Months E78.5 - Hyperlipidemia, unspecified Comprehensive [place]. Panel Fast 6 Months R73.02 - Impaired glucose tolerance (oral) Urine Culture Today N39.0 - Urinary tract infection, site not specified Referrals Neurology Referral G35 - Multiple sclerosis Medications: New sulfamethoxazole-trimethoprim 800-160 mg (Bactrim DS) 1 tab PO BID 3 days 6 tabs 0RF Coding Level of Care Code Est Pt Level 4 (88630) Diagnoses UTI (urinary tract infection) N39.0 Multiple sclerosis G35 Gastroesophageal reflux disease, unspecified whether esophagitis present K21.9 Esophagitis presence: esophagitis presence not specified Dyslipidemia E78.5 Mild asthma J45.909 Time Spent (min) 22
== END 2023-09-18 12:59 | disposition home or self-care (01) ==
PROVIDERS: PCP Internal Medicine; Visit Provider Internal Medicine
DX: N39.0 Urinary tract infection, site not specified (principal); G35 Multiple sclerosis; K21.9 Gastro-esophageal reflux disease without esophagitis; E78.5 Hyperlipidemia, unspecified; J45.909 Unspecified asthma, uncomplicated; R30.0 Dysuria
CPT/HCPCS: 81003; 99214

== ENCOUNTER 2023-09-18 12:57 | Outpatient (REF) | payer OTHER, SELFPAY | END 2023-09-18 12:58 | disposition home or self-care (01) | LOC: HO.LAB 12:57 | PROVIDERS: Visit Provider Internal Medicine | DX: R30.0 Dysuria (principal); N39.0 Urinary tract infection, site not specified; G35 Multiple sclerosis | CPT/HCPCS: 87086; 87088; 87186 ==

== ENCOUNTER 2024-01-21 14:10 | Outpatient (AMB) | payer MEDICARE, MEDICAID, SELFPAY ==
--- NOTE | 2024-01-21 14:26 | MHC.OFFVIS ---
Vital Signs 01/21/24 14:27 Height 5 ft 2 in Weight 166 lb 4 oz BMI 30.4 BP 138/78 Blood Pressure Location Rt brachial Position Sitting Respiration 17 Pulse 80 Pulse Source Pulse Oximeter Pulse Oximetry (%) 98 Oxygen Delivery Method Room Air Intake Visit Reasons: INP-Multiple sclerosis Intake Note: Pt presents for new pt consultation for multiple sclerosis. Reimbursement Spec Required: Yes Reimbursement Spec Services: Reimbursement Spec Present Reimbursement Spec Name: Sherry Noland CMA Allergies tramadol Allergy (Intermediate, Verified 01/21/24 14:27) headaches Medication List - Last Reconciled 01/21/24 by Leila Jackson MD albuterol sulfate 90 mcg/actuation 2 puffs inhalation QID PRN atorvastatin 20 mg PO BEDTIME 90 days gabapentin 300 mg PO BID 30 days ibuprofen 800 mg PO TID PRN 30 days omeprazole 20 mg PO DAILY 90 days tizanidine 4 mg PO BEDTIME 30 days Ventolin HFA 90 mcg/actuation (albuterol sulfate) 2 puffs inhalation Q6H PRN 30 days NS HPI Comments Details: 58y/o Right handed female comes for further management of Multiple Sclerosis . she was diagnosed with MS in 2018 - when she had numbness and tinglining in her forehead , face - MRI showed some lesions c/w MS. she is a poor historian and farfan snot recall being on any medications .s he recalls seeing Dr. Sánchez few years ago. she has had series of MRI since then - her last wa sin 2022 - c/w MS. SHe denies loss of vision double vision, weakness, numbness, gait problems , vertigo, speech issues ,weakness etc. she denies any memory issues. she has urinary urgency , no retention or constipation or incontinence. [facility] Medical History Lesion of frontal lobe of brain Right shoulder pain Tachycardia Neck pain Numbness Insomnia GERD (gastroesophageal reflux disease) Dyslipidemia Polyarthralgia Multiple sclerosis Hyperlipemia Surgical History History of colonoscopy Hx of tubal ligation Family History Father Hypertension Mother Diabetes mellitus Breast cancer Maternal Grandmother Breast cancer Social History Housing: Apartment Alcohol intake: never Patient Tobacco Use Status: Never used Tobacco e-Cigarette/Vaping Use: Never Used Second Hand Smoke Exposure: No service: No Current occupational status: disabled Cognitive needs: No Hearing needs: No Vision needs: No Physical Exam Vital Signs: Last Vital Signs Pulse 80 01/21/24 14:27 Resp 17 01/21/24 14:27 BP 138/78 01/21/24 14:27 Pulse Ox 98 01/21/24 14:27 Oxygen Delivery Method Room Air 01/21/24 14:27 BMI result Body Mass Index 30.4 Const General: cooperative, healthy appearing, comfortable and no acute distress Nutritional Appearance: average body habitus Orientation/consciousness: patient oriented x3 Eyes Pupils: Equal, round and reactive pupils present Neuro General: patient oriented x3, gait normal, tone normal, moves all extremities and no focal motor deficits Cranial nerves: Yes Facial sensation intact/muscles of mastication intact, Yes Equal, round and reactive pupils present, Yes Bilaterally intact EOM present, Yes Nystagmus not present, Yes Normal facial strength present, Yes Midline tongue present, Yes Symmetric palate elevation present and Yes Ability to bilaterally elevate shoulders present Cognition (Neuro): normal cognition Gait exam (Neuro): Normal gait present Motor exam (neuro): 5/5 motor strength present throughout and Normal motor muscle tone present throughout Deep tendon reflexes (DTR's): Right triceps reflex intensity grade: 2+, Left triceps reflex intensity grade: 2+, Rt Biceps (C5, C6): 2+, Left biceps reflex intensity grade: 2+, Right brachioradialis reflex intensity grade: 2+, Left brachioradialis reflex intensity grade: 2+, Right patellar reflex intensity grade: 2+ and Left patellar reflex intensity grade: 2+ Coordination: [id number] test normal and [id number]-[id number] test normal Results Reviewed Results Reviewed: MRI brain 2020 -New small 1 cm lesion in the left frontal centrum semiovale. Remaining pattern of white matter disease is stable as compared to previous imaging. MRI Brain 2021- stable distribution and degree of nonenhancing T2 FLAIR hyperintensities consistent with underlying demyelination in the appropriate clinical setting. No evidence of disease progression. MRI Brain- 2022 stable burden of demyelinating disease without disease progression. Partially imaged suspected demyelinating disease in the dorsal cord at C2-C3, which would be better assessed on cervical spine MRI. 2. No new acute intracranial process. 3. Redemonstrated expanded partially empty sella. Assessment & Plan Assessment & Plan (1) Multiple sclerosis: Code(s): G35 - Multiple sclerosis Category: Medical Plan Reviewed MRI BRain Will evaluate her with MRI C spine - vague lesion seen on Brain MRI Labs- CBC CMP TB test will start her on AUbagio 7 mg qd and f/u Orders: Orders T Spot TB Today G35 - Multiple sclerosis Complete Blood Count Auto Diff 1 Month G35 - Multiple sclerosis MR cervical spine wo/w con Today G35 - Multiple sclerosis Comprehensive Met. Panel Today G35 - Multiple sclerosis Complete Blood Count Auto Diff Today G35 - Multiple sclerosis Comprehensive Met. Panel 1 Month G35 - Multiple sclerosis Medications: New teriflunomide (Aubagio) 7 mg PO DAILY 30 tabs 6RF Coding Level of Care Code New Pt Level 4 (35688) Diagnoses Multiple sclerosis G35
[2024-01-21 14:27] VITALS: BP 138/78; PULSE 80; RESP 17; O2SAT 98; BMI 30.4
== END 2024-01-21 15:01 | disposition home or self-care (01) ==
PROVIDERS: PCP Internal Medicine; Visit Provider Psychiatry & Neurology Neurology
DX: G35 Multiple sclerosis (principal)
CPT/HCPCS: 99204

== ENCOUNTER 2024-01-21 15:03 | Outpatient (REF) | payer MEDICARE, MEDICAID, SELFPAY ==
[2024-01-21 17:34] LABS: MANUAL DIFF FLAG NO
[2024-01-21 17:41] LABS: Basophils Absolute Auto 0.1 X10*3/uL (0.0-0.2); Basophils Percent Auto 0.8 % (0-2); Eosinophils Absolute Auto 0.2 X10*3/uL (0.0-0.4); Eosinophils Percent Auto 2.6 % (0-4); Hematocrit 43.2 % (37.0-47.0); Hemoglobin 14.3 g/dl (12.0-16.0); Imm Gran Abs Auto 0.01 X10*3/uL (0.00-0.03); Imm Gran Pct Auto 0.1 % (0.0-0.4); Lymphocytes Absolute Auto 2.1 X10*3/uL (1.2-4.9); Mean Corpuscular HGB Conc 33.1 g/dl (31.0-35.0); Mean Corpuscular Hemoglobin 28.8 pg (27.0-33.0); Mean Corpuscular Volume 87.1 fL (80.0-98.0); Mean Platelet Volume 11.2 fL (9.4-12.3); Monocytes Absolute Auto 0.3 X10*3/uL (0.1-1.2); Monocytes Percent Auto 4.4 % (2-11); Neutrophils Percent Auto 65.1 % (45-73); Platelet Count 304 X10*3/uL (160-400); Red Blood Count 4.96 X10*6/uL (4.20-5.50); Red Cell Distribution Width 12.5 % (11.0-16.0); White Blood Count 7.7 X10*3/uL (4.8-10.8)
[2024-01-21 18:11] LABS: Alanine Aminotransferase 31 U/L (0-31); Albumin Level 4.3 g/dL (3.5-5.0); Alkaline Phosphatase 108 U/L (39-117); Anion Gap 14 (12-20); Aspartate Amino Transferase 23 U/L (5-31); Bilirubin Total 0.3 mg/dL (0.0-1.0); Blood Urea Nitrogen 20 mg/dL (9-16); Calcium 9.7 mg/dL (8.4-10.2); Carbon Dioxide 24 mmol/L (22-29); Chloride 108 mmol/L (96-108); Estimated Glomerular Filt Rate > 60; Glucose Random 88 mg/dL (60-115); Sodium 142 mmol/L (135-145); Total Protein 7.5 g/dL (6.5-8.0)
[2024-01-24 15:44] LABS: TS Negative Control Passed; TS Panel A 0; TS Panel B 0; TS Positive Control Passed; TSpotTB Negative (Negative)
== END 2024-01-21 15:04 | disposition home or self-care (01) ==
LOC: HO.HKASLDS 15:03
PROVIDERS: Visit Provider Psychiatry & Neurology Neurology
DX: G35 Multiple sclerosis (principal)
CPT/HCPCS: 36415; 80053; 85025; 86481; 99202

== ENCOUNTER 2024-02-24 09:22 | Outpatient (REF) | payer OTHER, SELFPAY ==
[2024-02-24 14:40] LABS: MANUAL DIFF FLAG NO
[2024-02-24 14:48] LABS: Basophils Absolute Auto 0.1 X10*3/uL (0.0-0.2); Basophils Percent Auto 0.9 % (0-2); Eosinophils Absolute Auto 0.2 X10*3/uL (0.0-0.4); Eosinophils Percent Auto 3.1 % (0-4); Hematocrit 45.1 % (37.0-47.0); Hemoglobin 14.8 g/dl (12.0-16.0); Imm Gran Abs Auto 0.01 X10*3/uL (0.00-0.03); Imm Gran Pct Auto 0.2 % (0.0-0.4); Lymphocytes Absolute Auto 1.6 X10*3/uL (1.2-4.9); Lymphocytes Percent Auto 28.6 % (20-40); Mean Corpuscular HGB Conc 32.8 g/dl (31.0-35.0); Mean Corpuscular Hemoglobin 28.6 pg (27.0-33.0); Mean Corpuscular Volume 87.2 fL (80.0-98.0); Mean Platelet Volume 11.4 fL (9.4-12.3); Monocytes Absolute Auto 0.4 X10*3/uL (0.1-1.2); Monocytes Percent Auto 6.3 % (2-11); Neutrophils Absolute Auto 3.5 x10*3/uL (2.0-8.3); Neutrophils Percent Auto 60.9 % (45-73); Platelet Count 285 X10*3/uL (160-400); Red Blood Count 5.17 X10*6/uL (4.20-5.50); Red Cell Distribution Width 12.6 % (11.0-16.0); White Blood Count 5.7 X10*3/uL (4.8-10.8)
[2024-02-24 15:21] LABS: Alanine Aminotransferase 45 U/L (0-31); Albumin Level 4.3 g/dL (3.5-5.0); Alkaline Phosphatase 113 U/L (39-117); Anion Gap 11 (12-20); Aspartate Amino Transferase 31 U/L (5-31); Bilirubin Total 0.4 mg/dL (0.0-1.0); Blood Urea Nitrogen 13 mg/dL (9-16); Carbon Dioxide 28 mmol/L (22-29); Chloride 106 mmol/L (96-108); Estimated Glomerular Filt Rate > 60; Glucose Random 102 mg/dL (60-115); Potassium 4.1 mmol/L (3.3-5.1); Sodium 141 mmol/L (135-145); Total Protein 7.5 g/dL (6.5-8.0)
== END 2024-02-24 09:23 | disposition home or self-care (01) ==
LOC: HO.HKASLDS 09:22
PROVIDERS: Visit Provider Psychiatry & Neurology Neurology
DX: G35 Multiple sclerosis (principal)
CPT/HCPCS: 36415; 80053; 85025

== ENCOUNTER 2024-03-19 11:36 | Outpatient (AMB) | payer OTHER, SELFPAY ==
[2024-03-19 11:48] VITALS: BMI 30.4
--- NOTE | 2024-03-19 11:48 | A.OFFVIS_ITS ---
Vital Signs 03/19/24 11:48 Height 5 ft 2 in Weight 166 lb BMI 30.4 Intake Visit Reasons: Follow up Multiple sclerosis Intake Note: Patient presents for multiple sclerosis Allergies tramadol Allergy (Intermediate, Verified 01/21/24 14:27) headaches [facility] Medical History Lesion of frontal lobe of brain Right shoulder pain Tachycardia Neck pain Numbness Insomnia GERD (gastroesophageal reflux disease) Dyslipidemia Polyarthralgia Multiple sclerosis Hyperlipemia Surgical History History of colonoscopy Hx of tubal ligation Family History Father Hypertension Mother Diabetes mellitus Breast cancer Maternal Grandmother Breast cancer Social History Housing: Apartment Alcohol intake: never Patient Tobacco Use Status: Never used Tobacco e-Cigarette/Vaping Use: Never Used Second Hand Smoke Exposure: No service: No Current occupational status: disabled Cognitive needs: No Hearing needs: No Vision needs: No Coding
--- NOTE | 2024-03-19 11:55 | MHC.OFFVIS ---
Vital Signs 03/19/24 11:48 03/19/24 12:00 Height 5 ft 2 in Weight 166 lb BMI 30.4 30.4 Intake Visit Reasons: Follow up Multiple sclerosis Physical Therapy Teacher Required: Yes Physical Therapy Teacher Name: flaca duran Allergies tramadol Allergy (Intermediate, Verified 01/21/24 14:27) headaches Medication List - Last Reconciled 03/19/24 by Leila Jakcson MD albuterol sulfate 90 mcg/actuation 2 puffs inhalation QID PRN atorvastatin 20 mg PO BEDTIME 90 days gabapentin 300 mg PO BID 30 days ibuprofen 800 mg PO TID PRN 30 days omeprazole 20 mg PO DAILY 90 days teriflunomide (Aubagio) 7 mg PO DAILY tizanidine 4 mg PO BEDTIME 30 days Ventolin HFA 90 mcg/actuation (albuterol sulfate) 2 puffs inhalation Q6H PRN 30 days NS HPI Comments Details: 59y/o Right handed female comes for follow up of Multiple Sclerosis .No new symptoms [facility] last visit she is tolerating teroflunamide 7 mg qd she was diagnosed with MS in 2018 - when she had numbness and tinglining in her forehead , face - MRI showed some lesions c/w MS. she is a poor historian and farfan snot recall being on any medications .s he recalls seeing Dr. Sánchez few years ago. she has had series of MRI since then - her last wa sin 2022 - c/w MS. SHe denies loss of vision double vision, weakness, numbness, gait problems , vertigo, speech issues ,weakness etc. she denies any memory issues. she has urinary urgency , no retention or constipation or incontinence. [facility] Medical History Lesion of frontal lobe of brain Right shoulder pain Tachycardia Neck pain Numbness Insomnia GERD (gastroesophageal reflux disease) Dyslipidemia Polyarthralgia Multiple sclerosis Hyperlipemia Surgical History History of colonoscopy Hx of tubal ligation Family History Father Hypertension Mother Diabetes mellitus Breast cancer Maternal Grandmother Breast cancer Social History Housing: Apartment Alcohol intake: never Patient Tobacco Use Status: Never used Tobacco e-Cigarette/Vaping Use: Never Used Second Hand Smoke Exposure: No service: No Current occupational status: disabled Cognitive needs: No Hearing needs: No Vision needs: No Physical Exam Vital Signs: BMI result Body Mass Index 30.4 Const General: cooperative, healthy appearing, comfortable and no acute distress Nutritional Appearance: average body habitus Orientation/consciousness: patient oriented x3 Eyes Pupils: Equal, round and reactive pupils present Neuro General: patient oriented x3, gait normal, tone normal, moves all extremities and no focal motor deficits Cranial nerves: Yes Facial sensation intact/muscles of mastication intact, Yes Equal, round and reactive pupils present, Yes Bilaterally intact EOM present, Yes Nystagmus not present, Yes Normal facial strength present, Yes Midline tongue present, Yes Symmetric palate elevation present and Yes Ability to bilaterally elevate shoulders present Cognition (Neuro): normal cognition Gait exam (Neuro): Normal gait present Motor exam (neuro): 5/5 motor strength present throughout and Normal motor muscle tone present throughout Deep tendon reflexes (DTR's): Right triceps reflex intensity grade: 2+, Left triceps reflex intensity grade: 2+, Rt Biceps (C5, C6): 2+, Left biceps reflex intensity grade: 2+, Right brachioradialis reflex intensity grade: 2+, Left brachioradialis reflex intensity grade: 2+, Right patellar reflex intensity grade: 2+ and Left patellar reflex intensity grade: 2+ Coordination: [id number]-[id number] test normal and etjp-it-evjn test normal Assessment & Plan Assessment & Plan (1) Multiple sclerosis: Code(s): G35 - Multiple sclerosis Category: Medical Plan Reviewed MRI BRain Will evaluate her with MRI C spine - vague lesion seen on Brain MRI Labs- CBC CMP TB test Continue AUbagio 7 mg qd and f/u Orders: Orders Complete Blood Count Auto Diff Today G35 - Multiple sclerosis Comprehensive Met. Panel Today G35 - Multiple sclerosis MR cervical spine wo/w con Today G35 - Multiple sclerosis Medications: Refilled teriflunomide (Aubagio) 7 mg PO DAILY 30 tabs 6RF Coding Level of Care Code Est Pt Level 4 (53694) Diagnoses Multiple sclerosis G35
[2024-03-19 12:00] VITALS: BMI 30.4
== END 2024-03-19 12:04 | disposition home or self-care (01) ==
PROVIDERS: PCP Internal Medicine; Visit Provider Psychiatry & Neurology Neurology
DX: G35 Multiple sclerosis (principal)
CPT/HCPCS: 99214

== ENCOUNTER → 2024-03-19 11:36 | Outpatient (BNVA) | payer OTHER, SELFPAY | PROVIDERS: PCP Internal Medicine; Visit Provider Psychiatry & Neurology Neurology | DX: G35 Multiple sclerosis (principal) | CPT/HCPCS: 99212 ==

== ENCOUNTER 2024-03-22 13:03 | Outpatient (AMB) | payer OTHER, SELFPAY ==
--- NOTE | 2024-03-22 13:24 | MHC.PC.OV ---
Vital Signs 03/22/24 13:26 Height 5 ft 2 in Weight 162 lb BMI 29.6 BP 120/72 Blood Pressure Location Lt brachial Position Sitting Intake Visit Reasons: 6mth f/u Intake Note: Patient here for a 6 month follow up Blocker Polishing Required: No Accompanied by: Self / Same As Patient Allergies tramadol Allergy (Intermediate, Verified 03/22/24 13:49) headaches Medication List - Last Reconciled 03/22/24 by Lillian Álvarez MD gabapentin 300 mg PO BID 30 days ibuprofen 800 mg PO TID PRN 30 days omeprazole 20 mg PO DAILY 90 days teriflunomide (Aubagio) 7 mg PO DAILY tizanidine 4 mg PO BEDTIME 30 days Ventolin HFA 90 mcg/actuation (albuterol sulfate) 2 puffs inhalation Q6H PRN 30 days NS Tobacco use date assessed: 09/18/23 Dental Screening Dental Screen Date: 09/18/23 HPI HPI Comments History of Present Illness Details This is a 59-year-old female with multiple sclerosis, GERD, fibromyalgia and empty sella that comes today for follow-up on her conditions. She said that headaches, numbness and back pain has improved since she started teriflunomide. Follows with Neurology for MS. GERD stable with PPIs. Fibromyalgia well controlled with gabapentin. Has empty sella with no symptoms of hypopituitarism. Will order hormone levels for this matter. [facility] Medical History (Updated 03/22/24 @ 13:59 by Lillian Álvarez MD) Lesion of frontal lobe of brain Right shoulder pain Tachycardia Neck pain Numbness Insomnia GERD (gastroesophageal reflux disease) Dyslipidemia Polyarthralgia Multiple sclerosis Hyperlipemia Surgical History History of colonoscopy Hx of tubal ligation Family History Father Hypertension Mother Diabetes mellitus Breast cancer Maternal Grandmother Breast cancer Social History Housing: Apartment Alcohol intake: never Patient Tobacco Use Status: Never used Tobacco e-Cigarette/Vaping Use: Never Used Second Hand Smoke Exposure: No service: No Current occupational status: disabled Cognitive needs: No Hearing needs: No Vision needs: No Questionnaire PHQ-9 Over the last 2 weeks, how often have you been bothered by any of the following problems? 1. Little interest or pleasure in doing things: not at all 2. Feeling down, depressed, or hopeless: not at all 3. Trouble falling or staying asleep, or sleeping too much: not at all 4. Feeling tired or having little energy: not at all 5. Poor appetite or overeating: not at all 6. Feeling bad about yourself - or that you are a failure or have let yourself or your family down: not at all 7. Trouble concentrating on things, such as reading the newspaper or watching television: not at all 8. Moving or speaking so slowly that other people could have noticed. Or the opposite - being so fidgety or restless that you have been moving around a lot more than usual: not at all 9. Thoughts that you would be better off or of hurting yourself in some way: not at all Total score: 0 Depression Screening Interpretation: Negative Depression Screening Done: Yes 64987 - PHQ-9 Billing: Yes Source: Developed by Drs. Jesse White, Jaz Carrion, Giovanny Mckinley and colleagues, with an educational gopi from [employer]. Thrive Questionnaire Date Thrive assessed: 03/22/24 I am a: Patient What is your living situation today?: I have a steady place to live Within the past 12 months, did the food you bought not last and you didn't have the money to get more?: Never true Within the past 12 months, did you worry whether your food would run out before you got money to buy more?: Never true Do you have trouble paying for medicines?: No Do you have trouble getting transportation to medical appointments?: No Do you have trouble paying your heating and electricity bill?: No Do you have trouble taking care of your child, family member or friend?: No Do you have trouble with day-to-day activities such as bathing, preparing meals, shopping, managing finances, etc.?: No Are you currently unemployed and looking for a job?: No Are you interested in more education?: No Please select the resources that you would like help with: None Currently or been in a relationship where the following occur: No concerns reported THRIVE Score: 0 AUDIT C Alcohol Use Questionnaire (AUDIT-C) 1. How often do you have a drink containing alcohol?: Never Total Score: 0 Score Reviewed/Action Taken: No DERRICK-7 AMB Questionnaire DERRICK-7 Date DERRICK - 7 assessed: 03/22/24 Feeling nervous, anxious, or on edge: 0 = Not at all Not being able to stop or control worryin = Not at all Worrying too much about different things: 0 = Not at all Trouble relaxin = Not at all Being so restless that it is hard to sit still: 0 = Not at all Becoming easily annoyed or irritable: 0 = Not at all Feeling afraid as if something awful might happen: 0 = Not at all Total DERRICK-7 score (0-4 normal; 5-9 mild; 10-14 moderate; 15-21 severe): 0 Source: Developed by Drs. Jesse White, Jaz Carrion, Giovanny Mckinley and colleagues, with an educational gopi from [employer]. DERRCIK-7 Assessment Billing DERRICK-7 Assessment Tool: DERRICK-7 Assessment 73242 Review of Systems Const All systems reviewed & are unremarkable except as noted in HPI and below Card Denies chest pain at rest, Denies chest pain with activity, Denies edema, Denies irregular heart rhythm, Denies claudication, Denies dyspnea, Denies dyspnea on exertion, Denies orthopnea, Denies paroxysmal nocturnal dyspnea and Denies slow heart rate Resp Denies cough, Denies dyspnea and Denies dyspnea on exertion GI Denies abdominal pain, Denies change in bowel habits, Denies excessive flatus, Denies nausea and Denies vomiting Physical exam (Primary Care) Vital Signs: Last Vital Signs BP 120/72 03/22/24 13:26 BMI result Body Mass Index 29.6 Tobacco/Smoking Status: Tobacco use Status Tobacco use date assessed 09/18/23 03/22/24 13:33 Patient Tobacco Use Status Never used Tobacco 03/22/24 13:33 e-Cigarette/Vaping Use Never Used 03/22/24 13:33 PHQ-9: PHQ-9 Score PHQ-9: Total score 0 03/22/24 16:09 Depression Screening Interpretation: Negative Thrive Assessment: Date of Thrive Assessment Date Thrive assessed 03/22/24 03/22/24 13:33 Currently or been in a relationship where the following occur: No concerns reported Resp Effort & Inspection: normal respiratory effort Auscultation: clear to auscultation bilaterally Cardio Jugular venous distension: no JVD Rate: regular rate Rhythm: regular rhythm Heart sounds: S1 normal heart sound present and S2 normal heart sound present Extrem General: Yes full ROM Assessment and Plan Assessment & Plan (1) Multiple sclerosis: Code(s): G35 - Multiple sclerosis Plan: Continue teriflunomide. Follow-up with Neurology. (2) Fibromyalgia: Code(s): M79.7 - Fibromyalgia Plan: Continue gabapentin. (3) Empty sella: Code(s): E23.6 - Other disorders of pituitary gland Plan: Hormone levels ordered. (4) GERD (gastroesophageal reflux disease): Code(s): K21.9 - Gastro-esophageal reflux disease without esophagitis Qualifiers: Esophagitis presence: esophagitis presence not specified Qualified Code(s): K21.9 - Gastro-esophageal reflux disease without esophagitis Plan: Continue PPIs. Orders: Orders XR DEXA axial skeleton Today N95.9 - Unspecified menopausal and perimenopausal disorder Human Growth Hormone Today E23.6 - Other disorders of pituitary gland Lutenizing Hormone Today E23.6 - Other disorders of pituitary gland Follicle Stimulating Hormone Today E23.6 - Other disorders of pituitary gland Thyroid Stimulating Hormone Today E23.6 - Other disorders of pituitary gland Adrenocorticotropic Hormone Today E23.6 - Other disorders of pituitary gland Prolactin Today E23.6 - Other disorders of pituitary gland Referrals [facility] [employer] Referral Z12.4 - Encounter for screening for malignant neoplasm of cervix Coding Level of Care Code Est Pt Level 4 (40877) Complex EM visit Add On G2211 Diagnoses Multiple sclerosis G35 Fibromyalgia M79.7 Empty sella E23.6 Gastroesophageal reflux disease, unspecified whether esophagitis present K21.9 Esophagitis presence: esophagitis presence not specified Additional Codes DERRICK-7 Assessment Billing - DERRICK-7 Assessment Tool: DERRICK-7 Assessment 76657 ([id number]) Time Spent (min) 24
[2024-03-22 13:26] VITALS: BP 120/72; BMI 29.6
== END 2024-03-22 14:02 | disposition home or self-care (01) ==
PROVIDERS: PCP Internal Medicine; Visit Provider Internal Medicine
DX: K21.9 Gastro-esophageal reflux disease without esophagitis (principal); G35 Multiple sclerosis; E23.6 Other disorders of pituitary gland; M79.7 Fibromyalgia
CPT/HCPCS: 99214; G2211

== ENCOUNTER 2024-03-22 14:12 | Outpatient (REF) | payer OTHER, SELFPAY ==
--- NOTE | ~2024-03-22 | MR_ITS ---
EXAMINATION: MR CERVICAL SPINE WITHOUT AND WITH CONTRAST CLINICAL INFORMATION: 59-year-old female with diagnosis of multiple sclerosis. Complaining of bilateral arm pain and neck pain. COMPARISON: No prior MR cervical. Plain film cervical spine 03/01/2021. TECHNIQUE: Multiplanar multisequence MR imaging of the cervical spine was done prior to and both before and after the administration 7.5 mL IV Gadavist. Examination was performed on a 1.5 Moni Siemens unit, using standard sequences. Please note, due to [facility] contractual, systems, and staffing issues, an [facility] radiologist was not available for review and dictation of this case until 04/13/2024. FINDINGS: CORONAL ALIGNMENT: -There is minimal dextroconvex scoliosis. -There is a compensatory levoconvex scoliosis of the upper thoracic spine. SAGITTAL ALIGNMENT: -Mild straightening of the normal lordosis, nonspecific. -There is a 2 mm degenerative anterolisthesis of C4 on C5, C6 on C7, and C7 on T1. CRANIOCERVICAL JUNCTION/C1-2 ARTICULATIONS: -Intact and aligned. -Mild degenerative changes atlantoaxial joint. VERTEBRAL BODIES/BONE MARROW: -No compression deformities. -No bone marrow edema, or abnormal infiltrative bone marrow signal identified. -No abnormal bone marrow enhancement grossly. DISCS: -Mild loss of disc height and signal CERVICAL CORD: -At the mid odontoid level, there is a subtle central anterior column focus of increased T2 signal. -Spanning the inferior C2 to the superior endplate of C3 levels, there is a 6 mm craniocaudal dorsal cord lesion. -Subtle left lateral column lesion at the inferior one third of C3. -Subtle right lateral column lesion at the inferior aspect of C4. -Subtle right lateral column lesion at the upper one third of C7. -Left lateral column lesion at the inferior endplate of C7. -Spanning the inferior one third T2 to the superior one third T3 levels, there is a left lateral column vertically oriented lesion measuring 12 mm. -The above findings are best appreciated on the axial gradient and sagittal FLAIR sequences. -There are no enhancing intra-axial or extra medullary lesions. PARAVERTEBRAL SOFT TISSUES: -Normal. -The thyroid is obscured by a saturation band. VISUALIZED INTRACRANIAL STRUCTURES: -Partial empty sella. -T2 hyperintensities within the tectal plate, mid to lower troy, midbrain, and bilateral cerebral peduncles. Refer to the dedicated brain MRI 06/10/2023. AXIAL DISC SPACE IMAGING: C2-C3: No central canal or neural foraminal narrowing. Mild left facet degeneration. C3-C4: Mild bilateral facet hypertrophy, and mild left uncinate spurring contributes to mild left neural foraminal narrowing. No central canal narrowing. C4-C5: Moderate left and mild right facet spurring, and minimal bilateral uncinate spurring contributes to mild left neural foraminal narrowing. No central canal narrowing. C5-C6: Mild bilateral facet spurring, moderate bilateral uncinate spurring contributes to mild bilateral neural foraminal narrowing. There is no central canal narrowing. C6-C7: No central canal or neural foraminal narrowing. Normal facets. C7-T1: No central canal or neural foraminal narrowing. Normal facets. T1-T4: No significant central canal or neural foraminal narrowing at any level. MR/MR cervical spine wo/w con IMPRESSION: 1. Numerous nonenhancing cord T2 hyperintense lesions consistent with MS plaques as discussed above. Largest is at C2-3 dorsal column, and left lateral column spanning T2-T3 levels. No enhancing lesions or T1 hypointense lesions. No cord thinning or impingement. 2. Mild cervical spondylosis. No significant central canal or neural foraminal narrowing. 3. Additional ancillary findings as discussed in the body of the report. Electronically signed by: Abdirahman Guzmán MD 04/13/2024 05:44 PM EDT
[2024-03-22] MEDS: gadobutroL 7.5 ML VIAL IVPUSH (15:11)
== END 2024-03-22 14:13 | disposition home or self-care (01) ==
LOC: HO.MRI 14:12
PROVIDERS: PCP Internal Medicine; Visit Provider Psychiatry & Neurology Neurology
DX: G35 Multiple sclerosis (principal)
CPT/HCPCS: 72156; A9585

== ENCOUNTER → 2024-03-22 14:12 | Outpatient (BNV) | payer OTHER, SELFPAY | PROVIDERS: PCP Internal Medicine; Visit Provider Radiology Diagnostic Radiology | DX: G35 Multiple sclerosis (principal); M54.2 Cervicalgia; M79.601 Pain in right arm; M79.602 Pain in left arm | CPT/HCPCS: 72156 ==

== ENCOUNTER 2024-03-25 09:41 | Outpatient (REF) | payer OTHER, SELFPAY ==
[2024-03-25 16:16] LABS: MANUAL DIFF FLAG NO
[2024-03-25 16:23] LABS: Basophils Absolute Auto 0.1 X10*3/uL (0.0-0.2); Basophils Percent Auto 1.3 % (0-2); Eosinophils Absolute Auto 0.2 X10*3/uL (0.0-0.4); Eosinophils Percent Auto 3.6 % (0-4); Hematocrit 39.7 % (37.0-47.0); Hemoglobin 13.3 g/dl (12.0-16.0); Imm Gran Abs Auto 0.02 X10*3/uL (0.00-0.03); Imm Gran Pct Auto 0.4 % (0.0-0.4); Lymphocytes Absolute Auto 1.3 X10*3/uL (1.2-4.9); Lymphocytes Percent Auto 27.7 % (20-40); Mean Corpuscular HGB Conc 33.5 g/dl (31.0-35.0); Mean Corpuscular Hemoglobin 28.4 pg (27.0-33.0); Mean Corpuscular Volume 84.6 fL (80.0-98.0); Mean Platelet Volume 11.7 fL (9.4-12.3); Monocytes Absolute Auto 0.4 X10*3/uL (0.1-1.2); Monocytes Percent Auto 7.7 % (2-11); Neutrophils Absolute Auto 2.8 x10*3/uL (2.0-8.3); Neutrophils Percent Auto 59.3 % (45-73); Platelet Count 241 X10*3/uL (160-400); Red Blood Count 4.69 X10*6/uL (4.20-5.50); Red Cell Distribution Width 12.7 % (11.0-16.0); White Blood Count 4.7 X10*3/uL (4.8-10.8)
[2024-03-25 16:30] LABS: Alanine Aminotransferase 29 U/L (0-31); Alkaline Phosphatase 100 U/L (39-117); Anion Gap 13 (12-20); Aspartate Amino Transferase 25 U/L (5-31); Bilirubin Total 0.4 mg/dL (0.0-1.0); Blood Urea Nitrogen 13 mg/dL (9-16); Calcium 9.4 mg/dL (8.4-10.2); Carbon Dioxide 24 mmol/L (22-29); Chloride 109 mmol/L (96-108); Estimated Glomerular Filt Rate > 60; Glucose Random 99 mg/dL (60-115); Potassium 3.8 mmol/L (3.3-5.1); Sodium 142 mmol/L (135-145); Total Protein 6.8 g/dL (6.5-8.0)
== END 2024-03-25 09:42 | disposition home or self-care (01) ==
LOC: HO.HKASLDS 09:41
PROVIDERS: Visit Provider Psychiatry & Neurology Neurology
DX: G35 Multiple sclerosis (principal)
CPT/HCPCS: 36415; 80053; 85025

== ENCOUNTER 2024-04-21 13:26 | Outpatient (REF) | payer OTHER, SELFPAY ==
--- NOTE | ~2024-04-21 | MM_ITS ---
EXAMINATION: BONE DENSITOMETRY CLINICAL INDICATION: Postmenopausal. COMPARISON: This is the patient's baseline examination. TECHNIQUE: Using a [employer] DXA System (software version: 13.1) manufactured by [employer], dual-energy x-ray absorptiometry was performed of the lumbar spine and left hip. The images are of good technical quality. Summary results are attached. FINDINGS: LEFT FEMUR, NECK: BMD 0.880 g/cm2, Z-score -0.1, T-score -1.1, osteopenia. LEFT FEMUR, TOTAL: BMD 1.007 g/cm2, Z-score 0.7, T-score 0.0, normal. AP SPINE L1-L4: BMD 1.012 g/cm2, Z-score -0.5, T-score -1.4, osteopenia. IDENTIFIED RISK FACTORS: Menopause, osteoporosis, rheumatoid arthritis. HISTORY OF FRACTURE: None listed. MEDICATIONS: None listed. MM/XR DEXA axial skeleton IMPRESSION: 1. DIAGNOSIS: Osteopenia based on the lowest T-score value of -1.4 in the lumbar spine applying World Health Organization criteria. 2. 10-YEAR FRACTURE RISK PREDICTION, FRAX: Major osteoporotic fracture (clinical spine, forearm, hip or shoulder) 5.0%. Hip fracture 0.3%. 3. Treatment Recommendations: NOF guidelines recommend consideration for treatment in postmenopausal women and men age 50 and older presenting with the following: -A hip or vertebral (clinical or morphometric) fracture. -T-score less than or equal to -2.5 at the femoral neck or spine after appropriate evaluation to exclude secondary causes. -Low bone mass at the hip or spine and a 10-year fracture probability by FRAX of greater than or equal to 3% for hip fracture or greater than or equal to 20% for major osteoporotic fracture based on the [place] adapted WHO algorithm. 4. Other Recommendations: All treatment decisions require clinical judgment and consideration of individual patient factors, including patient preferences, comorbidities, previous drug use, risk factors not captured in the FRAX model (e.g. frailty, falls, vitamin D deficiency, increased bone turnover, interval significant decline in bone density) and possible under or overestimation of fracture risk by FRAX. Additional medical evaluation for secondary cause of low bone mineral density may be appropriate. FUTURE SCAN RECOMMENDATION: People with diagnosed cases of osteoporosis or at high risk for fracture should have regular bone mineral density tests. For patients eligible for Medicare, routine testing is allowed once every 2 years. The testing frequency can be increased to one year for patients who have rapidly progressing disease, those who are receiving or discontinuing medical therapy to restore bone mass, or have additional risk factors. Electronically signed by: Keesha Tello MD 04/23/2024 09:27 AM EDT
== END 2024-04-21 13:27 | disposition home or self-care (01) ==
LOC: HO.MAMMO 13:26
PROVIDERS: PCP Internal Medicine; Visit Provider Internal Medicine
DX: Z13.820 Encounter for screening for osteoporosis (principal); Z78.0 Asymptomatic menopausal state
CPT/HCPCS: 77080

== ENCOUNTER 2024-07-22 09:56 | Outpatient (REF) | payer OTHER, SELFPAY | END 2024-07-22 09:57 | disposition home or self-care (01) | LOC: HO.LNP 09:56 | PROVIDERS: PCP Internal Medicine; Visit Provider Advanced Practice Midwife | DX: Z13.89 Encounter for screening for other disorder (principal) | CPT/HCPCS: 88175; 99386; 99459 ==

== ENCOUNTER 2024-07-22 09:56 | Outpatient (AMB) | payer OTHER, SELFPAY ==
--- NOTE | 2024-07-22 10:06 | MHC.OFFVIS ---
Vital Signs 07/22/24 10:07 Height 5 ft 2 in Weight 152 lb BMI 27.8 BP 112/76 Intake Visit Reasons: INVESTIGATION OFFICER annual exam Supervisor Plate Forming Required: Yes Supervisor Plate Forming Language: Mainspring Former Brace End Services: Supervisor Plate Forming Present Supervisor Plate Forming Name: Kamilah Information Interpreted: non-clinical & clinical Principal System Software Engineer: Principal System Software Engineer Present (Kamilah) Allergies tramadol Allergy (Intermediate, Verified 07/22/24 10:07) headaches Post menopausal: Yes HPI Comments Details: She is a postmenopausal woman presenting for her new patient annual radiation control worker examination. She is doing well with no radiation control worker concerns: vaginal odor x 1 mo. Admits to dryness. Reports a lump under right armpit that is uncomfortable when touching firmly. She does not recall having an infection under her axillary region. Current partner is incarcerated. Attempting to eat a healthy diet and stays active with exercise. Last pap smear; 2019. Last mammogram; 2021. Colonoscopy is UTD. Denies any family history of ovarian or colon cancer. FH breast cancer-mom and MGM. [facility] Medical History (Updated 07/22/24 @ 10:57 by Fransisca Wright CNM) Axillary lump Lesion of frontal lobe of brain Right shoulder pain Tachycardia Neck pain Numbness Insomnia GERD (gastroesophageal reflux disease) Dyslipidemia Polyarthralgia Multiple sclerosis Hyperlipemia Surgical History History of colonoscopy Hx of tubal ligation Family History Father Hypertension Mother Diabetes mellitus Breast cancer Maternal Grandmother Breast cancer Social History Housing: Apartment Alcohol intake: never Patient Tobacco Use Status: Never used Tobacco e-Cigarette/Vaping Use: Never Used Second Hand Smoke Exposure: No service: No Current occupational status: disabled Cognitive needs: No Hearing needs: No Vision needs: No Female Reproductive History Menstrual control method: permanent sterilization Permanent Sterilization: BTL Total pregnancies: 6 Full term: 5 Number of Living Children: 5 Date of last pap smear: 05/11/20 (neg pap and hpv) Date of Mammogram: 07/01/22 (Birad 2) Date of last Bone Density Screenin04/21/24 Review of Systems Const All systems reviewed & are unremarkable except as noted in HPI and below Reports as per HPI Eyes Reports no additional complaints ENT Reports no additional complaints Card Reports no additional complaints Resp Reports no additional complaints GI Reports as per HPI and Reports no additional complaints Reports as per HPI Musc Reports no additional complaints Skin/Breast Reports as per HPI Neuro Reports no additional complaints Psych Reports no additional complaints Endo Reports no additional complaints Gordo/Lymph Reports no additional complaints Aller/Immun Reports no additional complaints Physical Exam Vital Signs: Last Vital Signs BP 112/76 07/22/24 10:07 BMI result Body Mass Index 27.8 Const General: cooperative, healthy appearing, no acute distress, well developed and alert Orientation/consciousness: patient oriented x3 HEENT Head: Yes normal to inspection Eyes General: appearance normal, both eyes and all related structures Neck Neck: Yes normal visual inspection Thyroid: Thyroid normal Chest Other: Right axillary firm, tender, possible scarring from old cyst. Chest palpation & inspection: normal inspection of the chest and other (no puckering, dimpling, peau de orange, retraction, discharge, masses) Breast/axilla inspection: normal inspection of the breasts Breast/axilla palpation: normal palpation of the breasts Resp Effort & Inspection: normal respiratory effort GI Inspection: Yes normal to inspection Palpation (GI): Soft to palpation Rectal Exam - Female: deferred General: Yes bladder normal to palpation External Female Exam: normal external appearance and normal appearance of the urethra Speculum Exam - Vagina: normal palpation and vagina atrophic Speculum Exam - Cervix: normal appearance of the cervix, normal palpation, Nabothian cyst present and Other cervical findings present (Atrophic changes bled slightly with Pap) Bimanual exam- vagina & uterus: normal bimanual exam, normal palpation, uterine size normal, bladder normal to palpation, normal palpation and non-tender Bimanual Exam- Adnexa, other: no masses Skin General skin exam: no rashes or lesions noted Rashes: no rashes Neuro General: patient oriented x3 Cognition (Neuro): normal cognition Extrem General: Yes normal to inspection Psych Attitude: cooperative Thought process: Normal thought process present Assessment & Plan Assessment & Plan (1) Encounter for well woman exam with routine gynecological exam: Code(s): Z01.419 - Encounter for gynecological examination (general) (routine) without abnormal findings Category: Medical (2) Axillary lump: Code(s): R22.30 - Localized swelling, mass and lump, unspecified upper limb Category: Medical Qualifiers: Laterality: right Qualified Code(s): R22.31 - Localized swelling, mass and lump, right upper limb (3) Vaginal odor: Code(s): N89.8 - Other specified noninflammatory disorders of vagina Plan Discussed: Current recommendations for pap smears per ASCCP guidelines. Breast awareness, periodic self breast exams and yearly mammogram. BV GC and chlamydia panel done. Maintain a healthy lifestyle, well balanced diet including Calcium 1,200 mg and Vitamin D 600 IU daily, and routine exercise. Diagnostic mammogram ordered due to the lump in her right axilla, most likely superficial in the dermis due to its tenderness plan referral to have evaluation if she wants surgically removed. Contact the office with any postmenopausal bleeding. Patient verbalizes understanding and agrees to the plan of care. She was given opportunity to ask questions and all questions were answered to the best of my ability. RTO in 1 year for annual radiation control worker exam. This note is constructed using voice recognition software. While every effort has been made to ensure accuracy, dimethylaniline sulfator operator errors may have been included. Orders: Orders CT NG by PCR Today N89.8 - Other specified noninflammatory disorders of vagina Bacterial Vaginosis Panel Today N89.8 - Other specified noninflammatory disorders of vagina HPV High risk Today Z01.419 - Encounter for gynecological examination (general) (routine) without abnormal findings Pap Smear Today Z01.419 - Encounter for gynecological examination (general) (routine) without abnormal findings MM tomosynthesis diagnostic BI Today R22.30 - Localized swelling, mass and lump, unspecified upper limb, Z12.31 - Encounter for screening mammogram for malignant neoplasm of breast Referrals Breast Surgery Referral R22.30 - Localized swelling, mass and lump, unspecified upper limb Coding Level of Care Code New Pt Prev Care 40-64y(42910) Diagnoses Encounter for well woman exam with routine gynecological exam Z01.419 Mass of right axilla R22.31 Laterality: right Vaginal odor N89.8
[2024-07-22 10:07] VITALS: BP 112/76; BMI 27.8
== END 2024-07-22 10:53 | disposition home or self-care (01) ==
PROVIDERS: PCP Internal Medicine; Visit Provider Advanced Practice Midwife
DX: Z01.419 Encounter for gynecological examination (general) (routine) without abnormal findings (principal); R22.31 Localized swelling, mass and lump, right upper limb; N89.8 Other specified noninflammatory disorders of vagina
CPT/HCPCS: 99386; 99459

== ENCOUNTER 2024-07-22 10:51 | Outpatient (REF) | payer OTHER, SELFPAY ==
[2024-07-23 02:11] LABS: CT PCR NOT DETECTED (Not Detect.); NG PCR NOT DETECTED (Not Detect.)
[2024-07-23 08:52] LABS: Bacterial Vaginosis PCR NEGATIVE (Negative); Candida Group PCR NOT DETECTED (Not Detect); Candida glab krusei PCR NOT DETECTED (Not Detect); Trichomonas vaginalis PCR NOT DETECTED (Not Detect)
[2024-07-23 09:41] LABS: HPV 16,18/45 See PAP report
== END 2024-07-22 10:52 | disposition home or self-care (01) ==
LOC: HO.LAB 10:51
PROVIDERS: Visit Provider Advanced Practice Midwife
DX: Z01.419 Encounter for gynecological examination (general) (routine) without abnormal findings (principal); N89.8 Other specified noninflammatory disorders of vagina; Z78.0 Asymptomatic menopausal state; Z98.51 Tubal ligation status; R22.31 Localized swelling, mass and lump, right upper limb; Z79.899 Other long term (current) drug therapy; Z11.3 Encounter for screening for infections with a predominantly sexual mode of transmission
CPT/HCPCS: 81515; 87491; 87591; 87626; 88175; 99386; 99459

== ENCOUNTER 2024-08-19 14:27 | Outpatient (REF) | payer OTHER, SELFPAY | END 2024-08-19 14:28 | disposition home or self-care (01) | LOC: HO.LNP 14:27 | PROVIDERS: PCP Internal Medicine; Visit Provider Obstetrics & Gynecology | DX: R87.612 Low grade squamous intraepithelial lesion on cytologic smear of cervix (LGSIL) (principal) | CPT/HCPCS: 57454; 88305; 88341; 88342 ==

== ENCOUNTER → 2024-08-19 14:27 | Outpatient (AMB) | payer OTHER, SELFPAY ==
--- NOTE | 2024-08-19 14:28 | A.OFFVIS_ITS ---
Vital Signs 08/19/24 14:28 Height 5 ft 2 in Weight 152 lb BMI 27.8 Intake Visit Reasons: Colposcopy Doper Operator Required: Yes Doper Operator Language: Clerk Cashier Services: Doper Operator Present (in person) Doper Operator Name: Kamilah HA Information Interpreted: non-clinical & clinical Accompanied by: Self / Same As Patient Allergies tramadol Allergy (Intermediate, Verified 08/19/24 14:36) headaches Post menopausal: Yes HPI Comments Details: Presenting for abnormal Pap smear showing LG ERIKA HPV high-risk positive, HPV 16/18 negative [facility] Medical History Axillary lump Lesion of frontal lobe of brain Right shoulder pain Tachycardia Neck pain Numbness Insomnia GERD (gastroesophageal reflux disease) Dyslipidemia Polyarthralgia Multiple sclerosis Hyperlipemia Surgical History History of colonoscopy Hx of tubal ligation Family History Father Hypertension Mother Diabetes mellitus Breast cancer Maternal Grandmother Breast cancer Social History Housing: Apartment Alcohol intake: never Patient Tobacco Use Status: Never used Tobacco e-Cigarette/Vaping Use: Never Used Second Hand Smoke Exposure: No service: No Current occupational status: disabled Cognitive needs: No Hearing needs: No Vision needs: No Review of Systems Const All systems reviewed & are unremarkable except as noted in HPI and below Reports as per HPI and Reports no additional complaints GI Reports no additional complaints Reports no additional complaints Physical Exam Vital Signs: BMI result Body Mass Index 27.8 Office Procedures Colposcopy Colposcopy: Pre-Procedure Counseling: Before beginning the procedure, I conducted comprehensive counseling with the patient. We thoroughly discussed the procedure itself, including its details, alternatives, and all associated risks. This included but not limited to the following complications such as bleeding, infection, and injury to the vagina, bladder, and vessels, as well as the potential need for transfusion with all its associated risks. Subsequently, the patient sign the consent. Pap smear result: LSIL/HPV high-risk positive, HPV 16/18 negative. Procedure: During the procedure, the following steps were performed: A speculum was inserted, and acetic acid was applied. Colposcopy was conducted, allowing visualization of the transformation zone. Acetowhite lesions were identified at the 5+6+7+11+12+1 o'clock position. Cervical biopsies were obtained from the 5+6+7+11+12+1 o'clock position, followed by an endocervical curettage (ECC). Vaginoscopy of the upper vagina revealed no evidence of aceto-white lesions. Hemostasis was achieved using Monsel solution, and the patient tolerated the procedure well. Post-Procedure Instructions: The patient was advised to promptly contact the office or the after hours answering service or go to the emergency room if experiencing a temperature exceeding 100.4?F, abdominal pain, nausea/vomiting, or bleeding. Additionally, the patient was instructed to abstain from vaginal intercourse and bathtub use. The patient confirmed understanding of these instructions. Discharge Instructions: The patient was instructed to schedule a follow-up appointment in 2 weeks for further evaluation and management. Please note that this note was generated using a voice recognition program, and errors may have occurred during events director. [id number] of cervix including upper vagina with biopsy and ECC Procedure code (CPT) selection complete Assessment & Plan Assessment & Plan (1) LGSIL on Pap smear of cervix: Comment: HPV high-risk positive, HPV 16/18 negative Code(s): R87.612 - Low grade squamous intraepithelial lesion on cytologic smear of cervix (LGSIL) Category: Medical Plan: Discussed with the patient the result of her abnormal pap, its significance, risk of progression, persistence, and regression. the false positive/negative rate of a Pap smear as a screening test in detecting cervical cancer and the indication for a diagnostic test -colposcopy, biopsy, endocervical curettage. The patient verbalized understanding and agreed with the plan, all questions answered. Colpo/biopsy/ECC done, see procedure note Orders: Orders AMB Colposcopy Today R87.612 - Low grade squamous intraepithelial lesion on cytologic smear of cervix (LGSIL) Coding Level of Care Code Procedure Only Diagnoses LGSIL on Pap smear of cervix R87.612 CPT Codes Colposcopy - CPT: 22721-[id number] of cervix including upper vagina with biopsy and ECC ([id number])
== END | disposition home or self-care (01) ==
PROVIDERS: PCP Internal Medicine; Visit Provider Obstetrics & Gynecology
CPT/HCPCS: 57454

== ENCOUNTER 2024-08-20 09:59 | Outpatient (REF) | payer OTHER, SELFPAY | END 2024-08-20 10:00 | disposition home or self-care (01) | LOC: HO.MAMMO 09:59 | PROVIDERS: PCP Internal Medicine; Visit Provider Advanced Practice Midwife | DX: N63.31 Unspecified lump in axillary tail of the right breast (principal) ==

== ENCOUNTER → 2024-08-20 10:15 | Outpatient (BNV) | payer OTHER, SELFPAY | PROVIDERS: PCP Internal Medicine; Visit Provider Internal Medicine | DX: R92.1 Mammographic calcification found on diagnostic imaging of breast (principal); L72.3 Sebaceous cyst | CPT/HCPCS: 76882; 77066; G0279 ==

== ENCOUNTER 2024-10-14 14:42 | Outpatient (AMB) | payer OTHER, SELFPAY ==
--- NOTE | 2024-10-14 14:50 | MHC.OFFVIS ---
Intake Visit Reasons: Colpo results Aboriginal Education Worker Coordinator Required: Yes Aboriginal Education Worker Coordinator Language: Labor Mediator Services: Aboriginal Education Worker Coordinator Present (in person) Aboriginal Education Worker Coordinator Name: Kamilah Haynes DILCIA Information Interpreted: non-clinical & clinical Media Services Director: Media Services Director Present (Dorota ) Accompanied by: Self / Same As Patient Allergies tramadol Allergy (Intermediate, Verified 10/14/24 14:51) headaches HPI Comments Details: Presenting post colpo for follow-up. The patient is doing well with no complaints. The pathology showed the following: A. Endocervix, curettage: Scant squamous and endocervical glandular mucosa with inflammation and reactive changes; negative for dysplasia. B. Cervix, 1:00, biopsy: Squamous and scant endocervical glandular mucosa; negative for dysplasia. C. Cervix, 5:00, biopsy: Endocervical glandular and scant squamous epithelium with marked inflammation and reactive changes; negative for dysplasia. D. Cervix, 6:00, biopsy: Scant endocervical epithelium and rare squamous cells; negative for dysplasia. E. Cervix, 7:00, biopsy: Rare endocervical epithelial cells; no dysplasia seen. F. Cervix, 11:00, biopsy: Squamous and endocervical glandular mucosa with marked inflammation, follicular cervicitis, and focal mild atypia, not diagnostic for dysplasia. F. Cervix, 12:00, biopsy: Endocervical glandular and scant squamous mucosa with marked inflammation and reactive changes; negative for dysplasia. Comment: The low-grade dysplastic cells in the patient's previous Pap test (CY25-52) have some similarities to the atypical changes seen in the current biopsy [facility] Medical History Axillary lump Lesion of frontal lobe of brain Right shoulder pain Tachycardia Neck pain Numbness Insomnia GERD (gastroesophageal reflux disease) Dyslipidemia Polyarthralgia Multiple sclerosis Hyperlipemia Surgical History History of colonoscopy Hx of tubal ligation Family History Father Hypertension Mother Diabetes mellitus Breast cancer Maternal Grandmother Breast cancer Social History Housing: Apartment Alcohol intake: never Patient Tobacco Use Status: Never used Tobacco e-Cigarette/Vaping Use: Never Used Second Hand Smoke Exposure: No service: No Current occupational status: disabled Cognitive needs: No Hearing needs: No Vision needs: No Review of Systems Const All systems reviewed & are unremarkable except as noted in HPI and below Reports as per HPI and Reports no additional complaints GI Reports no additional complaints Reports no additional complaints Assessment & Plan Assessment & Plan (1) LGSIL on Pap smear of cervix: Comment: HPV high-risk positive, HPV 16/18 negative Code(s): R87.612 - Low grade squamous intraepithelial lesion on cytologic smear of cervix (LGSIL) Category: Medical Plan: Discussed with the patient the pathology results of the colposcopy biopsies & endocervical curettage. Discussed with the patient the sensitivity specificity, positive and negative predictive value in detecting cervical cancer in addition discussed the regression, persistence and progression rates. Recommended co-testing in 12 months, if cytology and or HPV are abnormal will proceed was colposcopy biopsy and endocervical curettage. Instructions given to the patient to schedule a co test appointment in 1 year. All questions answered the patient verbalized understanding. Coding Level of Care Code Est Pt Level 3 (62366) Diagnoses LGSIL on Pap smear of cervix R87.612
--- OUTSIDE RECORDS SUMMARY | 2024-10-14 16:11 | XMS_ITS | Encounter Summary ---
Author Organization [employer] [facility] Address [address] [place] [address] Care Team Providers Care Smoke Jumper Name Role Phone Unavailable Primary Care Provider Unavailabl e Encounter Details Date Type Department Care Team (Latest Contact Info) Description 12/20/2020 Abstract [facility] CONVERSIONS Dental, Provider, DDS Social History Tobacco Use Types Packs/Day Years Used Date Smoking Tobacco: Never Assessed Comments Unknown Sex and Gender Information Value Date Recorded Sex Assigned at Female 05/13/2022 10:15 AM EDT Legal Sex Female 10:15 AM EDT Gender Identity Female 05/13/2022 10:15 AM EDT Sexual Orientation Straight 05/13/2022 10 :15 AM EDT documented as of this encounter Plan of Treatment Not on file documented as of this encounter Visit Diagnoses Not on filedocumented in this encounter
--- OUTSIDE RECORDS SUMMARY | 2024-10-14 16:11 | XMS_ITS | Clinical Summary ---
Author Organization [employer] Address [address] [place] [address] [address] [place] [address] Care Team Providers Care Busboy Name Role Phone Unavailable Primary Care Provider Unavailabl e Social History Tobacco Use Types Packs/Day Years Used Date Smoking Tobacco: Never Assessed Comments Unknown Sex and Gender Information Value Date Recorded Sex Assigned at Female 05/13/2022 10:15 AM EDT Legal Sex Female 10:15 AM EDT Gender Identity Female 05/13/2022 10:15 AM EDT Sexual Orientation Straight 05/13/2022 10 :15 AM EDT Plan of Treatment Health Maintenance Due Date Last Done Comments CT Colonography 1964 Colonoscopy 1964 Colorectal Cancer Screening 1964 Depression Screening 1964 FIT DNA/Cologuard 1964 FIT 1964 FOBT 1964 Sigmoidoscopy 1964 Alcohol/Substance Use Screening 1976 Tobacco Screening 1976 DTaP/Tdap/Td Vaccines (1 - Tdap) 02/15/1983 Pap Smear 02/15/1985 Cervical Cancer Screening 02/15/1994 HPV/Cotest 02/15/1994 Mammogram 2004 Pneumococcal Vaccine: 50+ Years (1 of 1 - PCV) 02/15/2014 Zoster Vaccines (1 of 2) 02/15/2014 COVID-19 Vaccine ( - 2023-2 5 season) 2024 Influenza Vaccine (#1) 2024 09/15/2015 RSV Patients and Patients Aged 60 years or older (1 - 1-dose 75+ series) 02/15/2039 HIB Vaccines Aged Out No longer eligi ble based on patient's age to complete this topic HPV Vaccines Aged Out No longer eligi ble based on patient's age to complete this topic Hepatitis A Vaccines Aged Out No long er eligible based on patient's age to complete this topic Hepatitis B Vaccines Aged Out No long er eligible based on patient's age to complete this topic IPV Vaccines Aged Out No longer eligi ble based on patient's age to complete this topic Meningococcal Vaccine Aged Out No mandeep thanh eligible based on patient's age to complete this topic Pneumococcal Vaccine: Pediatrics (0 to 5 Years) and At-Risk Patients (6 to 49) Years) Aged Out No longer eligible b ased on patient's age to complete this topic RSV under 20 months Aged Out No longe r eligible based on patient's age to complete this topic Rotavirus Vaccines Aged Out No longer eligible based on patient's age to complete this topic
== END 2024-10-14 14:58 | disposition home or self-care (01) ==
LOC: HO.HWS 14:42
PROVIDERS: PCP Internal Medicine; Visit Provider Obstetrics & Gynecology
DX: R87.612 Low grade squamous intraepithelial lesion on cytologic smear of cervix (LGSIL) (principal)
CPT/HCPCS: 99213

== ENCOUNTER → 2024-10-14 14:42 | Outpatient (BNVA) | payer OTHER, SELFPAY | PROVIDERS: PCP Internal Medicine; Visit Provider Obstetrics & Gynecology | DX: R87.612 Low grade squamous intraepithelial lesion on cytologic smear of cervix (LGSIL) (principal) | CPT/HCPCS: 99212 ==

== ENCOUNTER 2024-10-30 08:17 | Outpatient (REF) | payer OTHER, SELFPAY ==
[2024-10-30 08:37] LABS: MANUAL DIFF FLAG NO
[2024-10-30 09:07] LABS: Basophils Absolute Auto 0.1 X10*3/uL (0.0-0.2); Basophils Percent Auto 0.8 % (0-2); Eosinophils Absolute Auto 0.3 X10*3/uL (0.0-0.4); Eosinophils Percent Auto 4.6 % (0-4); Hematocrit 44.7 % (37.0-47.0); Hemoglobin 14.6 g/dl (12.0-16.0); Imm Gran Abs Auto 0.01 X10*3/uL (0.00-0.03); Imm Gran Pct Auto 0.2 % (0.0-0.4); Lymphocytes Absolute Auto 2.1 X10*3/uL (1.2-4.9); Lymphocytes Percent Auto 32.9 % (20-40); Mean Corpuscular HGB Conc 32.7 g/dl (31.0-35.0); Mean Corpuscular Hemoglobin 28.2 pg (27.0-33.0); Mean Corpuscular Volume 86.3 fL (80.0-98.0); Mean Platelet Volume 10.7 fL (9.4-12.3); Monocytes Absolute Auto 0.3 X10*3/uL (0.1-1.2); Monocytes Percent Auto 4.2 % (2-11); Neutrophils Absolute Auto 3.7 x10*3/uL (2.0-8.3); Neutrophils Percent Auto 57.3 % (45-73); Platelet Count 314 X10*3/uL (160-400); Red Blood Count 5.18 X10*6/uL (4.20-5.50); Red Cell Distribution Width 13.3 % (11.0-16.0); White Blood Count 6.5 X10*3/uL (4.8-10.8)
[2024-10-30 10:02] LABS: Alanine Aminotransferase 24 U/L (0-31); Albumin Level 4.3 g/dL (3.5-5.0); Alkaline Phosphatase 88 U/L (39-117); Aspartate Amino Transferase 22 U/L (5-31); Bilirubin Total 0.4 mg/dL (0.0-1.0); Blood Urea Nitrogen 13 mg/dL (9-16); Calcium 9.9 mg/dL (8.4-10.2); Cholesterol 288 mg/dL (<200); Estimated Glomerular Filt Rate > 60; Glucose Fasting 94 mg/dL (60-99); HDL Cholesterol 47 mg/dL (>40); Iron 83 mcg/dL (30-160); LDL Cholesterol Calculated 203 mg/dL (<100); Percent Iron Saturation 26 % (15-50); Total Iron Binding Capacity 316 mcg/dL (228-428); Total Protein 7.3 g/dL (6.5-8.0); Triglycerides 194 mg/dL (<150); Unsaturated Iron Binding 233 ug/dL
[2024-10-30 10:12] LABS: Thyroid Stimulating Hormone 1.28 uIU/mL (0.32-4.0)
[2024-10-30 10:23] LABS: Anion Gap 13 (12-20)
[2024-10-30 10:32] LABS: Carbon Dioxide 27 mmol/L (22-29); Chloride 108 mmol/L (96-108); Potassium 4.5 mmol/L (3.3-5.1); Sodium 142 mmol/L (135-145)
[2024-10-31 10:09] LABS: Follicle Stimulating Hormone 39.8 mIU/mL; Lutenizing Hormone 17.7 mIU/mL
[2024-11-01 18:49] LABS: Human Growth Hormone 0.3 ng/mL (< OR = 7.1)
[2024-11-03 14:18] LABS: Adrenocorticotropic Hormone 36 pg/mL (6-50)
== END 2024-10-30 08:18 | disposition home or self-care (01) ==
LOC: HO.LAB 08:17
PROVIDERS: PCP Internal Medicine; Visit Provider Internal Medicine
DX: E23.6 Other disorders of pituitary gland (principal); E78.5 Hyperlipidemia, unspecified; D64.9 Anemia, unspecified; K92.1 Melena; R73.02 Impaired glucose tolerance (oral)
CPT/HCPCS: 36415; 80053; 80061; 82024; 83001; 83002; 83003; 83540; 84146; 84443; 85025

== ENCOUNTER 2024-11-02 13:44 | Outpatient (AMB) | payer OTHER, SELFPAY ==
--- NOTE | 2024-11-02 13:54 | A.OFFPC_ITS ---
Vital Signs 11/02/24 13:56 Height 5 ft 2 in Weight 148 lb BMI 27.1 BP 118/70 Blood Pressure Location Lt brachial Position Sitting Intake Visit Reasons: Annual Exam Intake Note: Patient here for an annual physical exam Special Education Curriculum Specialist Required: No Accompanied by: Self / Same As Patient Allergies tramadol Allergy (Intermediate, Verified 11/02/24 14:13) headaches Medication List - Last Reconciled 11/02/24 by Lillian Álvarez MD gabapentin 300 mg PO BID 30 days ibuprofen 800 mg PO TID PRN 30 days omeprazole 20 mg PO DAILY 90 days Shower Chair As directed tizanidine 4 mg PO BEDTIME 30 days Ventolin HFA 90 mcg/actuation (albuterol sulfate) 2 puffs inhalation Q6H PRN 30 days NS Tobacco use date assessed: 11/02/24 Dental Screening Dental Screen Date: 11/02/24 Did you have a dental visit in the last 12 months?: No Did you have a dental problem in the last 6 months where you did not have access to dental care?: No Was dental information given to patient?: Patient has dentist HPI HPI Comments History of Present Illness Details The patient is a 59-year-old female presenting for an annual physical examination. She has a notable medical history of multiple sclerosis, with last year's MRI revealing plaques which led to the recommendation of continuing medication, though she reports poor tolerance due to hair loss. Hyperlipidemia management has been challenging due to elevated cholesterol levels at 288 mg/dL. Despite dietary changes, she struggles with medication adherence. Her osteopenia has been monitored with bone density tests indicating the need for calcium and vitamin D supplements. She had a positive HPV test but subsequent biopsy results were normal and recent screening tests, including Pap smears and mammograms, were uneventful. Mild depressive symptoms related to fatigue were shared, though without pervasive sadness. - Bone density test in 2023 revealed ost eopenia. - Pap smear was recently conducted follo wing an HPV positive result, showing minimal risk. - Mammogram conducted in August; resul ts were normal. - [place] Risk Score calculated as 3. 1% for cardiovascular disease. - Dietary modifications for cholesterol control, including avoiding fried foods and yolk. - Planned colonoscopy due to the last on e being ten years ago. [facility] Medical History (Updated 11/02/24 @ 14:59 by Lillian Álvarez MD) Empty sella Axillary lump Lesion of frontal lobe of brain Right shoulder pain Tachycardia Neck pain Numbness Insomnia GERD (gastroesophageal reflux disease) Dyslipidemia Polyarthralgia Multiple sclerosis Hyperlipemia Surgical History History of colonoscopy Hx of tubal ligation Family History Father Hypertension Mother Diabetes mellitus Breast cancer Maternal Grandmother Breast cancer Social History Housing: Apartment Alcohol intake: never Patient Tobacco Use Status: Never used Tobacco e-Cigarette/Vaping Use: Never Used Second Hand Smoke Exposure: No service: No Current occupational status: disabled Cognitive needs: No Hearing needs: No Vision needs: No Questionnaire PHQ-9 Over the last 2 weeks, how often have you been bothered by any of the following problems? 1. Little interest or pleasure in doing things: not at all 2. Feeling down, depressed, or hopeless: not at all 3. Trouble falling or staying asleep, or sleeping too much: several days 4. Feeling tired or having little energy: several days 5. Poor appetite or overeating: several days 6. Feeling bad about yourself - or that you are a failure or have let yourself or your family down: not at all 7. Trouble concentrating on things, such as reading the newspaper or watching television: not at all 8. Moving or speaking so slowly that other people could have noticed. Or the opposite - being so fidgety or restless that you have been moving around a lot more than usual: not at all 9. Thoughts that you would be better off or of hurting yourself in some way: not at all Total score: 3 Depression Screening Interpretation: Positive Depression Screening Follow-up: Existing condition and Follow-up Visit Requested Depression Screening Done: Yes 20514 - PHQ-9 Billing: Yes Source: Developed by Drs. Jesse White, Jaz Carrion, Giovanny Mckinley and colleagues, with an educational gopi from [id number]. Thrive Questionnaire Date Thrive assessed: 11/02/24 I am a: Patient What is your living situation today?: I have a steady place to live Within the past 12 months, did the food you bought not last and you didn't have the money to get more?: I choose not to answer this question Within the past 12 months, did you worry whether your food would run out before you got money to buy more?: I choose not to answer this question Do you have trouble paying for medicines?: No Do you have trouble getting transportation to medical appointments?: No Do you have trouble paying your heating and electricity bill?: No Do you have trouble taking care of your child, family member or friend?: No Do you have trouble with day-to-day activities such as bathing, preparing meals, shopping, managing finances, etc.?: No Are you currently unemployed and looking for a job?: Yes Are you interested in more education?: No Please select the resources that you would like help with: None Currently or been in a relationship where the following occur: I choose not to answer THRIVE Score: 0 AUDIT C Alcohol Use Questionnaire (AUDIT-C) 1. How often do you have a drink containing alcohol?: Never Total Score: 0 Score Reviewed/Action Taken: No DERRICK-7 AMB Questionnaire DERRICK-7 Date DERRICK - 7 assessed: 11/02/24 Feeling nervous, anxious, or on edge: 0 = Not at all Not being able to stop or control worryin = Not at all Worrying too much about different things: 0 = Not at all Trouble relaxin = Not at all Being so restless that it is hard to sit still: 0 = Not at all Becoming easily annoyed or irritable: 0 = Not at all Feeling afraid as if something awful might happen: 0 = Not at all Total DERRICK-7 score (0-4 normal; 5-9 mild; 10-14 moderate; 15-21 severe): 0 Source: Developed by Drs. Jesse White, Jaz Carrion, Giovanny Mckinley and colleagues, with an educational gopi from [employer]. DERRICK-7 Assessment Billing DERRICK-7 Assessment Tool: DERRICK-7 Assessment 60208 Review of Systems Const All systems reviewed & are unremarkable except as noted in HPI and below Card Denies chest pain at rest, Denies chest pain with activity, Denies edema, Denies irregular heart rhythm, Denies claudication, Denies dyspnea, Denies dyspnea on exertion, Denies orthopnea, Denies paroxysmal nocturnal dyspnea and Denies slow heart rate Resp Denies cough, Denies dyspnea and Denies dyspnea on exertion GI Denies abdominal pain, Denies change in bowel habits, Denies excessive flatus, Denies nausea and Denies vomiting Denies urinary incontinence, Denies urinary hesitancy and Denies urinary urgency Musc Denies abnormal gait, Denies atrophy, Denies deformity and Denies limited range of motion Skin/Breast Denies bleeding lesions, Denies changing lesions and Denies rash Neuro Denies abnormal gait, Denies behavioral changes, Denies confusion and Denies lack of coordination Psych Denies behavioral changes and Denies confusion Physical exam (Primary Care) Vital Signs: Last Vital Signs BP 118/70 11/02/24 13:56 BMI result Body Mass Index 27.1 Tobacco/Smoking Status: Tobacco use Status Tobacco use date assessed 11/02/24 11/02/24 14:00 Patient Tobacco Use Status Never used Tobacco 11/02/24 14:00 e-Cigarette/Vaping Use Never Used 11/02/24 14:00 PHQ-9: PHQ-9 Score PHQ-9: Total score 3 11/02/24 14:23 Depression Screening Interpretation: Positive Depression Screening Follow-up: Existing condition and Follow-up Visit Requested Thrive Assessment: Date of Thrive Assessment Date Thrive assessed 11/02/24 11/02/24 14:00 Currently or been in a relationship where the following occur: I choose not to answer Const General: No confusion Orientation/consciousness: patient oriented x3 and No confusion HENMT Head: Yes normal to inspection, Yes normocephalic and Yes atraumatic Ears: external ears normal Eyes General: appearance normal, both eyes and all related structures Eyelids: Yes eyelids normal Conjunctivae: conjunctivae normal Neck Neck: Yes normal visual inspection and Yes supple Resp Effort & Inspection: normal respiratory effort Auscultation: clear to auscultation bilaterally Cardio Jugular venous distension: no JVD Rate: regular rate Rhythm: regular rhythm Heart sounds: S1 normal heart sound present and S2 normal heart sound present GI Inspection: Yes normal to inspection Palpation (GI): Soft to palpation and nontender Auscultation: normal bowel sounds Skin General skin exam: no rashes or lesions noted Neuro General: patient oriented x3, no focal motor deficits and No confusion Extrem General: Yes full ROM Psych Appearance: grossly normal Coding Level of Care Code Est Pt Prev Care 40-64y(14265) Diagnoses Physical exam Z00.00 Multiple sclerosis G35 Additional Codes DERRICK-7 Assessment Billing - DERRICK-7 Assessment Tool: DERRICK-7 Assessment 42486 ([id number]) PHQ-9 - 50016 - PHQ-9 Billing: Yes ([id number]) Time Spent (min) 30 Assessment & Plan Assessment & Plan (1) Physical exam: Code(s): Z00.00 - Encounter for general adult medical examination without abnormal findings Category: Medical (2) Multiple sclerosis: Code(s): G35 - Multiple sclerosis Category: Medical Plan [place] risk score is 3.1% supporting present and future prevention tactics in cholesterol control. Monitoring of mild depressive symptoms is advised, with potential intervention considerations if there is aggravation. The plan includes an impending colonoscopy considering the ten-year interval since the last one.: Patient was informed and verbally consented to the use of an ambient scribe for clinic note documentation during this visit. During the visit, we extensively discussed multiple sclerosis management, prioritizing medication options that mitigate the adverse effect of hair loss. I detailed the importance of medication adherence for hyperlipidemia, as elevated cholesterol levels pose continued cardiovascular risks, despite dietary improvements. The plan includes revisiting her neurologist to reconsider her multiple sclerosis treatment plan. We addressed osteopenia through ongoing calcium and vitamin D supplementation. The preventive health strategy emphasized regular screenings based on previous HPV and mammogram results, which were benign. We assessed her cardiovascular risk as a [place] Risk Score of 3.1%, underlining lifestyle changes. The patient's mild depression seems related to fatigue, which is non-severe but might need attention if it worsens. Further, she is scheduled for a colonoscopy to update her screening status. Orders: Referrals Open Access Screening Colonoscopy Referral Z12.12 - Encounter for screening for malignant neoplasm of rectum Patient Instructions: - Follow up with your neurologist to discuss medication alternatives for multiple sclerosis. - Adhere to cholesterol-lowering medication and continue dietary adjustments as discussed. - Keep up with calcium and vitamin D supplements for bone health. - Continue with the annual Pap smear and mammogram screenings. - Note the need to schedule a colonoscopy soon. - Monitor energy levels and mood, seek support if depression symptoms escalate. - Maintain a healthy lifestyle, focusing on diet modification and regular health monitoring.
[2024-11-02 13:56] VITALS: BP 118/70; BMI 27.1
--- OUTSIDE RECORDS SUMMARY | 2024-11-02 16:22 | XMS_ITS | Encounter Summary ---
Author Organization [facility] Address [address] [place] [address] Care Team Providers Care Digital Proofing And Platemaker Name Role Phone Unavailable Primary Care Provider [...]
--- OUTSIDE RECORDS SUMMARY | 2024-11-02 16:22 | XMS_ITS | Clinical Summary ---
Author Organization [employer] Address [address] [place] [address] [address] [place] [address] Care Team Providers Care Automotive Assembler Name Role Phone Unavailable Primary Care Provider [...] 5 season) 2024 Influenza Vaccine (#1) 2024 , 09/15/2015 RSV Patients and Patients Aged 60 [...] this topic Meningococcal Vaccine Aged Out No mandepe thanh eligible based on patient's age to [...]
== END 2024-11-02 14:25 | disposition home or self-care (01) ==
LOC: HO.HMCH 13:45
PROVIDERS: PCP Internal Medicine; Visit Provider Internal Medicine
DX: Z00.00 Encounter for general adult medical examination without abnormal findings (principal); G35 Multiple sclerosis

== ENCOUNTER → 2024-11-02 13:44 | Outpatient (BNVA) | payer OTHER, SELFPAY | PROVIDERS: PCP Internal Medicine; Visit Provider Internal Medicine | DX: Z00.00 Encounter for general adult medical examination without abnormal findings (principal); G35 Multiple sclerosis; E78.5 Hyperlipidemia, unspecified; M85.80 Other specified disorders of bone density and structure, unspecified site | CPT/HCPCS: 96127; 99396 ==

== ENCOUNTER 2024-12-15 11:22 | Inpatient (IN) | payer OTHER, SELFPAY ==
--- NOTE | ~2024-12-15 | CT_ITS ---
EXAMINATION: CT ABDOMEN PELVIS WITH IV CONTRAST HISTORY: concern for diverticulitis COMPARISON: Comparison is made with the prior examination dated 12/23/2019. TECHNIQUE: CT scan of the abdomen and pelvis was performed following administration of 85 mL Omnipaque 350 using standard departmental protocol. Coronal and sagittal reformatted images were generated and reviewed. Oral contrast material was not administered at the request of the referring physician. This CT exam was performed with one or more of the following dose reduction techniques: automated exposure control, adjustment of the mA and/or kV according to patient size, use of iterative reconstruction technique. DLP: 528 mGy-cm FINDINGS: LOWER CHEST: The visualized lung bases are clear. There is no pleural effusion. CARDIOVASCULATURE: The heart is normal in size. There is no pericardial effusion. LIVER: The liver is normal in size and contour. No liver mass is identified. The hepatic and portal veins are patent. GALLBLADDER / BILE DUCTS: The gallbladder is unremarkable. There is no intra or extrahepatic biliary ductal dilatation. SPLEEN: The spleen is normal in size. No focal splenic lesion is identified. PANCREAS: The pancreas is unremarkable in appearance. ADRENAL GLANDS: Within normal limits. KIDNEYS/RETROPERITONEUM: No renal calculi are identified. There is no hydronephrosis. No renal masses are identified. LYMPH NODES: There are multiple subcentimeter lymph nodes in the right lower quadrant mesentery, more notable for number than size. VASCULATURE: The abdominal aorta is normal in caliber. MESENTERY/PERITONEUM: There is a small amount of free fluid in the pelvis. No masses. There is no free intraperitoneal gas. STOMACH: The stomach is collapsed, limiting evaluation. SMALL BOWEL: The small bowel is normal in caliber. COLON: There is moderate nodular wall thickening of the ascending and transverse colon consistent with colitis. The descending and sigmoid colon appear less involved. There are multiple diverticula involving the descending and sigmoid colon without evidence of diverticulitis. APPENDIX: Normal. URINARY BLADDER/PELVIC ORGANS: The urinary bladder is collapsed, limiting evaluation. The endometrial cavity of the uterus is distended with hypodense material. BONES / SOFT TISSUES: There is moderate levoscoliosis of the spine. CT/CT abdomen pelvis w IV con IMPRESSION: 1. Findings consistent with colitis involving the ascending and transverse colon as described. 2. Diverticulosis of the descending and sigmoid colon, without evidence of diverticulitis. 3. The endometrial cavity of the uterus is distended with hypodense material. Neoplasm is not excluded and direct visualization is recommended. Electronically signed by: Jesse Mclain MD 12/15/2024 03:22 PM EDT
--- NOTE | 2024-12-15 11:35 | ECG_ITS ---
Test Reason : abd pain Blood Pressure : */* mmHG Vent. Rate : 103 BPM Atrial Rate : 103 BPM P-R Int : 132 ms QRS Dur : 76 ms QT Int : 318 ms P-R-T Axes : 36 -3 41 degrees QTcB Int : 416 ms Sinus tachycardia Cannot rule out Anterior infarct (cited on or before 20-Aug-2020) Abnormal ECG When compared with ECG of 19-Nov-2020 01:05, Premature supraventricular complexes are no longer Present Referred By: Viky Leonardo Electronically Signed By: MARY ANNE GURROLA
[2024-12-15 11:58] VITALS: BP 131/80; PULSE 102; RESP 18; TEMP 37.7; O2SAT 98; BMI 27.1
[2024-12-15 12:23] LABS: Hemoglobin 14.6 g/dl (12.0-16.0); Mean Corpuscular HGB Conc 34.8 g/dl (31.0-35.0); Mean Corpuscular Hemoglobin 28.9 pg (27.0-33.0); Mean Platelet Volume 10.7 fL (9.4-12.3); Platelet Count 261 X10*3/uL (160-400); Red Blood Count 5.06 X10*6/uL (4.20-5.50); Red Cell Distribution Width 13.2 % (11.0-16.0); White Blood Count 8.5 X10*3/uL (4.8-10.8)
[2024-12-15 12:31] LABS: Lactic Acid 1.3 mmol/L (0.5-2.0)
[2024-12-15 12:34] LABS: Alanine Aminotransferase 30 U/L (0-31); Albumin Level 4.3 g/dL (3.5-5.0); Anion Gap 14 (12-20); Aspartate Amino Transferase 30 U/L (5-31); Bilirubin Direct 0.2 mg/dL (0.0-0.5); Bilirubin Total 0.6 mg/dL (0.0-1.0); Blood Urea Nitrogen 16 mg/dL (9-16); Calcium 9.9 mg/dL (8.4-10.2); Carbon Dioxide 25 mmol/L (22-29); Chloride 102 mmol/L (96-108); Estimated Glomerular Filt Rate > 60; Glucose Random 106 mg/dL (60-115); Lipase 11 U/L (8-78); Magnesium 1.7 mg/dL (1.6-2.6); Potassium 3.3 mmol/L (3.3-5.1); Sodium 138 mmol/L (135-145); Total Protein 7.6 g/dL (6.5-8.0)
[2024-12-15 12:41] LABS: Appearance Urine Cloudy; Color Urine Dark Yellow; Glucose Urine UA Negative (Negative); Leukocyte Esterase Urine Negative (Negative); Nitrite Urine Negative (Negative); Specific Gravity - Urine >= 1.030 (1.005-1.025); UMIC TRIGGER UACC YES; Urine Blood Small (1+) (Negative); Urine Ketones 15 mg/dL (Negative); Urine Protein 100 (2+) mg/dL (Neg-Trace)
--- OUTSIDE RECORDS SUMMARY | 2024-12-15 12:43 | XMS_ITS | Patient Health Record ---
Author Organization [facility] Address [address] [place] [address] Care Team Providers Care Salesperson Pianos And [employer]ans Name Role Phone Lillian Bolden Primary Care Provider UnavailJosé Burrell Jr Unavailable Reason For Referral No Information Problems Problem Type SNOMED Code ICD Code Onset Dates Problem Status W/U Status Risk Notes Problem [id number] Elevated liver function tests (R94.5) Active confirmed Plan Of Treatment Pending Test Test Name Order Date LIVER PROFILE 09/02/2019 Future Test Test Name Order Date COLONOSCOPY 08/03/2014 Insurance Providers Payer Name Payer Address Payer Phone Subscriber Number Group Number Insured Name Patient Relationship to Insured Coverage Start Date Coverage End Date MEDICARE OF [place] [address] [place] [id number] LILLIAN SCHAEFER Self - patient is the insured MEDICAID OF [facility] [address] [place] [address] [id number] LILLIAN SCHAEFER Self - patient is the insured Medical (General) History Medical History History ICD Code elevated Cholesterol colonoscopy 05/2014, followup do well Surgical History Surgery Date(Month/Year) tubal ligation
[2024-12-15 12:49] LABS: Bacteria Urine None Seen (None Seen); Hyaline Casts Urine 0-2 /LPF (0-2); WBC Urine 0-5 /HPF (0-5)
[2024-12-15 12:57] LABS: Neutrophils Percent Manual 61 % (45-73)
[2024-12-15 12:59] LABS: Band Neutrophils Percent 25 % (3-5); Lymphocytes Absolute Manual 0.9 X10*3/uL (1.2-4.9); Lymphocytes Percent Manual 11 % (20-40); Monocytes Absolute Manual 0.3 X10*3/uL (0.1-1.2); Monocytes Percent Manual 3 % (2-11); Neutrophils Absolute Manual 7.3 X10*3/uL (2.0-8.3); Platelet Estimate NORMAL (NORMAL); Platelet Morphology Comment NORMAL; RBC Morphology NORMAL
[2024-12-15 13:05] LABS: Alkaline Phosphatase 111 U/L (39-117)
--- NOTE | 2024-12-15 13:36 | ED_ITS ---
HPI - Abdominal Pain General Chief Complaint: Abdominal Pain Stated Complaint: Abdominal Pain Time Seen by Provider: 12/15/24 13:36 Source: patient, RN notes reviewed and truck driver teamster History of Present Illness ED Provider: Alexandra Tompkins PA-C HPI narrative: 59 y/o F here for abd pain for three days of abdominal pain in her bilateral lower quadrants no worse from the right to the left side. It is crampy for the 1st day and then over the last 2 days she has had several bowel movements that are brown and loose with no mucus or blood noted. She reports greater than 10 a day. She has not had any recent antibiotics. She denies any abdominal surgeries. She did have blood noticed in her stool 2 months ago but as it self- resolved in 1 day she did not seek medical attention for it. She reports no history of IBS referable diagnosis of bowel syndromes. Hx of tubal ligation years ago. Last meal she had was yesterday it did not make the pain any worse but did not help either. She has been drinking fluids and voiding regularly denying any symptoms. She feels nauseous and reports the pain is approximately 8/10 it is crampy. Last bowel movement was 30 minutes ago, it appeared dark black to her. She has not taken any Pepto-Bismol or Maalox or any other antacids. She denies any heartburn. She is without any fevers chills or sweats. Denies any respiratory symptoms such as coughing or shortness of breath. She has not taken anything for pain. No flank pain or sxs. No trauma or falls. English speaking only, utilized formal in-person clothes designer for H and P. elicited complaint: abdominal pain Related Data Previous Rx's ?Medication ?Instructions ?Recorded tizanidine 4 mg tablet 4 mg PO BEDTIME 30 days #30 tabs 03/29/24 gabapentin 300 mg capsule 300 mg PO BID 30 days #60 caps 04/24/24 Ventolin HFA 90 mcg/actuation 2 puff inhalation Q6H PRN 05/06/24 aerosol inhaler (albuterol sulfate) shortness of breath or wheezing 30 days #8 grams Shower Chair #1 ea 08/19/24 omeprazole 20 mg tablet,delayed 20 mg PO DAILY 90 days #90 tabs 10/29/24 release ibuprofen 800 mg tablet 800 mg PO TID PRN pain 30 days #90 12/01/24 tabs Allergies Allergy/AdvReac Type Severity Reaction Status Date / Time tramadol Allergy Intermediate headaches Verified 12/15/24 12:00 Review of Systems Review of Systems Yes all other systems are reviewed and are negative [facility] Past Medical History Attestation statement: The following information was validated with the patient. Source: old records reviewed and nursing notes reviewed Medical History Empty sella Axillary lump Lesion of frontal lobe of brain Right shoulder pain Tachycardia Neck pain Numbness Insomnia GERD (gastroesophageal reflux disease) Dyslipidemia Polyarthralgia Multiple sclerosis Hyperlipemia Surgical History History of colonoscopy Hx of tubal ligation Family History Family History Father Hypertension Mother Diabetes mellitus Breast cancer Maternal Grandmother Breast cancer Social History Social History Housing: Apartment Alcohol intake: never Patient Tobacco Use Status: Never used Tobacco Smoked in Last 30 Days: No e-Cigarette/Vaping Use: Never Used Second Hand Smoke Exposure: No Use of substances other than those prescribed or required for medical reasons: No Advance Directives: No Advance Directives Information Provided: Yes service: No Current occupational status: disabled Cognitive needs: No Hearing needs: No Vision needs: No Physical Exam ED Vital Signs: Vital Signs - 24 hr 12/15/24 11:58 12/15/24 14:31 12/15/24 15:46 Temperature 100 F 99.7 F 98.2 F Pulse Rate 102 H 91 82 Respiratory Rate 18 16 16 Blood Pressure 131/80 105/60 111/65 Pulse Oximetry 98 96 96 Oxygen Delivery Method Room Air Room Air BMI result Body Mass Index 27.1 Const General: cooperative, no acute distress, alert, awake, in distress (appears uncomfortable holding lower abdomen in position) moderate, tired appearing and well groomed Nutritional Appearance: average body habitus Orientation/consciousness: patient oriented x3 Limitations: language barrier HENMT Head: Yes normal to inspection General nose exam: Normal external nose present Face and sinus: Yes normal facial exam Mouth: Normal oral and palatal mucosa present, lip normal and tongue normal Throat: Yes posterior oropharynx normal Eyes General: appearance normal, both eyes and all related structures Periorbital: periorbital findings normal Eyelids: Yes eyelids normal Conjunctivae: conjunctivae normal Sclerae: sclerae normal Corneas: corneas normal Neck Neck: Yes normal visual inspection and Yes no lymphadenopathy Chest Chest palpation & inspection: normal inspection of the chest Resp Effort & Inspection: normal respiratory effort and able to speak in complete sentences Auscultation: clear to auscultation bilaterally Cardio Jugular venous distension: no JVD Rate: regular rate and tachycardic Rhythm: regular rhythm GI Inspection: Yes normal to inspection Palpation (GI): Tenderness to palpation present (GI) (negative peritoneal signs) in the LLQ, in the RLQ and with rebound tenderness Auscultation: Hyperactive bowel sounds present Rectal Exam - Female: deferred OB/external & speculum: Deferred OB/external & speculum exam Skin General skin exam: no rashes or lesions noted and turgor normal Wounds: no wounds Hair: normal Neuro General: patient oriented x3 Medical Decision Making Medical Decision Making MDM Narrative: 59 y/o F here with abdominal pain x 3 days. H and P as above. Upon arrival to ED, patient has mildy tachycardia of 102, and low grade fever of 100F PO. She did not appear septic but uncomfortable. She has abdominal labs initiated prior to me assuming her care. At bedside using formal truck driver teamster, she has a tender lower quadrant but negative peritoneal signs. Given inability to tolerate PO fluids with nausea, IVF initiated with zofran. CBC prelim result showed no leukocytosis however upon completion 25 % bands noted. Her lactate was normal. THis had me concerned for early sepsis. Sepsis focused exam took place at 12 pm. She appears mildly dehydrated via mucous membranes but skin without tenting. Tylenol ordered with metro and ceftriaxone to cover for intra-abdominal pathology. SUspect diverticulitis, will also order stool cultures. She will be closely monitored. 3pm: CRP slightly elevated. No kidney or liver dysfunction.No metabolic dysfunction. Patient reassessed at bedside, pain well controlled with IV morphine one time dose. No vomiting. Proteinuria noted, new. Small amount of blood. No WBCs, no urinary complaints. 325: Colitis noted on CT scan, given overall presentation, will admit to medicine for further care. Hospitalist Dr. Gomez accepted to care. Differential Diagnosis diverticulitis, SBO, colitis, appendicitis, SBP, sepsis, viral gastroenteritis Admission/Observation Consideration of admission/observation: Escalation of care including admission/observation considered will admit colitis, first time occurrence, surgery not consulted, no perforation Consult Healthcare Provider Management of the patient was discussed with: Hospitalist Lab Data [facility] Lab Attestation statement: I reviewed the patient's lab results. early signs of sepsis suspected, see MDM 12/15/24 11:52 12/15/24 11:52 Labs: Lab Results 12/15/24 12/15/24 12/15/24 Range/Units 11:52 12:09 12:31 WBC 8.5 (4.8-10.8) X10*3/uL RBC 5.06 (4.20-5.50) X10*6/uL Hgb 14.6 (12.0-16.0) g/dl Hct 42.0 (37.0-47.0) % MCV 83.0 (80.0-98.0) fL MCH 28.9 (27.0-33.0) pg MCHC 34.8 (31.0-35.0) g/dl RDW 13.2 (11.0-16.0) % Plt Count 261 (160-400) X10*3/uL MPV 10.7 (9.4-12.3) fL Immature Gran % (Auto) Cancelled Neut % (Auto) Cancelled Lymph % (Auto) Cancelled [place] % (Auto) Cancelled Eos % (Auto) Cancelled Baso % (Auto) Cancelled Lymph # (Auto) Cancelled [place] # (Auto) Cancelled Eos # (Auto) Cancelled Baso # (Auto) Cancelled Abs Immat Gran (auto) Cancelled Absolute Neuts (auto) Cancelled Absolute Nucleated RBC 0.000 (0.0-0.012) X10*3/uL Nucleated RBC % (auto) 0.0 (0.0-0.2) /100WBC Neutrophils % (Manual) 61 (45-73) % Band Neutrophils % 25 H (3-5) % Lymphocytes % (Manual) 11 L (20-40) % Monocytes % (Manual) 3 (2-11) % Abs Neuts (Manual) 7.3 (2.0-8.3) X10*3/uL Lymphocytes # (Manual) 0.9 L (1.2-4.9) X10*3/uL Monocytes # (Manual) 0.3 (0.1-1.2) X10*3/uL Platelet Estimate NORMAL (NORMAL) Plt Morphology Comment NORMAL RBC Morphology NORMAL ESR 25 H (0-20) MM/HR Sodium 138 (135-145) mmol/L Potassium 3.3 D (3.3-5.1) mmol/L Chloride 102 (96-108) mmol/L Carbon Dioxide 25 (22-29) mmol/L Anion Gap 14 (12-20) BUN 16 (9-16) mg/dL Creatinine 0.88 (0.5-1.4) mg/dL Estim Creat Clear Calc 61.0 Estimated GFR > 60 Random Glucose 106 (60-115) mg/dL Lactic Acid 1.3 (0.5-2.0) mmol/L Calcium 9.9 (8.4-10.2) mg/dL Magnesium 1.7 (1.6-2.6) mg/dL Total Bilirubin 0.6 (0.0-1.0) mg/dL Direct Bilirubin 0.2 (0.0-0.5) mg/dL AST 30 (5-31) U/L ALT 30 (0-31) U/L Alkaline Phosphatase 111 (39-117) U/L C-Reactive Protein 22.47 H (< or = 0.50) mg/dL Total Protein 7.6 (6.5-8.0) g/dL Albumin 4.3 (3.5-5.0) g/dL Lipase 11 (8-78) U/L Urine Color Dark Yellow Urine Appearance Cloudy Urine pH 6.0 (5.0-9.0) Ur Specific [place] >= 1.030 H (1.005-1.025) Urine Protein 100 (2+) H (Neg-Trace) mg/dL Urine Glucose (UA) Negative (Negative) mg/dL Urine Ketones 15 (Negative) mg/dL Urine Blood Small (1+) H (Negative) Urine Nitrite Negative (Negative) Ur Leukocyte Esterase Negative (Negative) Urine RBC 3-5 H (0-2) /HPF Urine WBC 0-5 (0-5) /HPF Ur Squamous Epith Cells 3-5 (0-2) /HPF Urine Bacteria None Seen (None Seen) Hyaline Casts 0-2 (0-2) /LPF Independent Interpretation I performed an independent interpretation of an: EKG and CT Scan Interpretation: EKG: PVCs, no ischemia, CT with colitis, small amount of free fluid in pelvis, no free air. Radiology Impression Discussion of test interpretation with radiology: I have reviewed the radiologist's reading. Radiologist Impression: CT abd/pelvis: IMPRESSION: 1. Findings consistent with colitis involving the ascending and transverse colon as described. 2. Diverticulosis of the descending and sigmoid colon, without evidence of diverticulitis. 3. The endometrial cavity of the uterus is distended with hypodense material. Neoplasm is not excluded and direct visualization is recommended. Chronic Conditions Patient?s care impacted by: Other (GERD, MS) Social Determinants Patient?s care significantly limited by Social Determinants of Health including: Other Social Determinant of Health Medications Administered Discontinued Medications Generic Name Dose Route Start Last Admin Trade Name Freq PRN Reason Stop Dose Admin Ceftriaxone Sodium 2 gm 12/15/24 13:59 12/15/24 15:39 Ceftriaxone Sodium 2 Gm Vial IVPUSH 12/15/24 14:00 2 gm ONCE ONE Administration Acetaminophen 1,000 mg in 100 mls @ 400 mls/hr 12/15/24 13:54 12/15/24 15:33 Ofirmev IV 12/15/24 14:08 Infused ONCE ONE Infusion Lactated Ringer's 1,000 mls @ 999 mls/hr 12/15/24 13:54 12/15/24 15:34 Lr IV 12/15/24 14:54 Infused .Q1H1M ONE Infusion Metronidazole 500 mg in 100 mls @ 100 mls/hr 12/15/24 13:59 12/15/24 15:39 Flagyl IV 12/15/24 14:58 100 mls/hr ONCE ONE Administration Iohexol 100 ml 12/15/24 15:08 12/15/24 15:09 Iohexol 350 Mg/Ml 100 Ml Infus..Btl IV 12/15/24 15:09 85 ml ONCE ONE Administration Morphine Sulfate 2 mg 12/15/24 13:58 12/15/24 14:07 Morphine Sulfate 2 Mg/Ml Cartridge IVPUSH 12/15/24 13:59 2 mg ONCE ONE Administration Protocol Ondansetron HCl 4 mg 12/15/24 13:54 12/15/24 14:07 Ondansetron Hcl 4 Mg/2 Ml Vial IVPUSH 12/15/24 13:55 4 mg ONCE ONE Administration Critical Care Time Critical Care Time Critical Care Time: Yes Total Critical Care Time: 60 Attestation: This patient required critical care. Due to the fact that the patient required a significant amount of one on one physician ? patient contact time, ordering and review of studies, arranging urgent treatment with development of a management plan, evaluation of patient?s response to treatment with frequent reassessments, and discussions with other providers this patient required critical care time in excess of 60 minutes. Critical care time was indicated due to the inherent instability and/or potential for instability in this patient. The critical care time that is allocated to this patient is above and beyond any time spent on any other billable procedures performed on this patient. Discharge Plan Discharge Clinical Impression: Colitis Diarrhea Qualifiers: Diarrhea type: unspecified type Qualified Code(s): R19.7 - Diarrhea, unspecified Sepsis Qualifiers: Sepsis type: sepsis due to unspecified organism Sepsis acute organ dysfunction status: without acute organ dysfunction Qualified Code(s): A41.9 - Sepsis, unspecified organism Patient Disposition: Admitted As Inpatient Print Language: English
[2024-12-15] MEDS: Lactated Ringers 1,000 ML 999 ML IV (14:07)
[2024-12-15] MEDS: Morphine Sulfate 2 MG/ML CARTRIDGE IVPUSH (14:07)
[2024-12-15] MEDS: ondansetron HCL 4 MG/2 ML VIAL IVPUSH (14:07)
[2024-12-15] MEDS: Acetaminophen 1,000 MG/100 ML PIGGYBACK 400 MG IV (14:07)
[2024-12-15 14:19] LABS: C Reactive Protein 22.47 mg/dL (< or = 0.50)
[2024-12-15 14:31] VITALS: BP 105/60; PULSE 91; RESP 16; TEMP 37.6; O2SAT 96
[2024-12-15 14:44] LABS: Erythrocyte Sedimentation Rate 25 MM/HR (0-20)
[2024-12-15] MEDS: iohexoL 350 MG/ML 100 ML INFUS..BTL IV (15:09)
[2024-12-15] MEDS: cefTRIAXone sodium 2 GM VIAL IVPUSH (15:39)
[2024-12-15] MEDS: metroNIDAZOLE/NS 500 MG/100 ML PIGGYBACK 100 MG IV (15:39)
[2024-12-15 15:46] VITALS: BP 111/65; PULSE 82; RESP 16; TEMP 36.8; O2SAT 96
--- NOTE | 2024-12-15 16:24 | P.HPHOSP_ITS ---
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 A CT scan revealed colitis involving the ascending and transverse colon. Laboratory findings include 25% bandemia, CRP of 22.2, and ESR of 25. In the ED, she received Zofran for nausea, morphine for pain, and ceftriaxone and Flagyl for infection. She is not tolerating oral intake, necessitating admission. This is her first episode of colitis. She denies recent travel or sick contact, no household members with similar symptoms. No recent Abx use Review of Systems 2 Review of Systems: Gen: no fever Resp: no sob, no cough CV: no chest, no [place], no leg edema GI: No n/v, no abd pain Neuro: No confusion [facility] Medical History Empty sella Axillary lump Lesion of frontal lobe of brain Right shoulder pain Tachycardia Neck pain Numbness Insomnia GERD (gastroesophageal reflux disease) Dyslipidemia Polyarthralgia Multiple sclerosis Hyperlipemia Family History Father Hypertension Mother Diabetes mellitus Breast cancer Maternal Grandmother Breast cancer Surgical History History of colonoscopy Hx of tubal ligation Social History Housing: Apartment Alcohol intake: never Patient Tobacco Use Status: Never used Tobacco Smoked in Last 30 Days: No e-Cigarette/Vaping Use: Never Used Second Hand Smoke Exposure: No Use of substances other than those prescribed or required for medical reasons: No Advance Directives: No Advance Directives Information Provided: Yes service: No Current occupational status: disabled Cognitive needs: No Hearing needs: No Vision needs: No Meds Allergies Allergy/AdvReac Type Severity Reaction Status Date / Time tramadol Allergy Intermediate headaches Verified 12/15/24 12:00 Home Medications ?Medication ?Instructions ?Recorded ?Confirmed ?Last Taken ?Type gabapentin 300 mg capsule 300 mg PO BEDTIME 12/15/24 12/15/24 12/14/24 History omeprazole 20 mg tablet,delayed 20 mg PO DAILY@0630 12/15/24 12/15/24 12/14/24 History release Physical Exam 2 Vital Signs and Narrative: Vital Signs: Last Vital Signs Temp 98.2 F 12/15/24 15:46 Pulse 82 12/15/24 15:46 Resp 16 12/15/24 15:46 BP 111/65 12/15/24 15:46 Pulse Ox 96 12/15/24 15:46 O2 Del Method Room Air 12/15/24 15:46 BMI result Body Mass Index 27.1 Const: Other: General: AO X 3, no acute distress Resp: CTA bilateral CVS: S1,S2,RRR GI: +BS, lower abd tenderness, no distention Skin: No rash Neuro: motor grossly intact Psych: appropriate affect Results Labs 12/15/24 11:52 12/15/24 11:52 Labs: Laboratory Results - last 24 hr 12/15/24 12/15/24 12/15/24 11:52 12:09 12:31 MCV 83.0 MCH 28.9 MCHC 34.8 RDW 13.2 Plt Count 261 MPV 10.7 Immature Gran % (Auto) Cancelled Neut % (Auto) Cancelled Lymph % (Auto) Cancelled [place] % (Auto) Cancelled Eos % (Auto) Cancelled Baso % (Auto) Cancelled Lymph # (Auto) Cancelled [place] # (Auto) Cancelled Eos # (Auto) Cancelled Baso # (Auto) Cancelled Abs Immat Gran (auto) Cancelled Absolute Neuts (auto) Cancelled Absolute Nucleated RBC 0.000 Nucleated RBC % (auto) 0.0 Neutrophils % (Manual) 61 Band Neutrophils % 25 H Lymphocytes % (Manual) 11 L Monocytes % (Manual) 3 Abs Neuts (Manual) 7.3 Lymphocytes # (Manual) 0.9 L Monocytes # (Manual) 0.3 Platelet Estimate NORMAL Plt Morphology Comment NORMAL RBC Morphology NORMAL ESR 25 H Anion Gap 14 Estim Creat Clear Calc 61.0 Estimated GFR > 60 Random Glucose 106 Lactic Acid 1.3 Calcium 9.9 Magnesium 1.7 Total Bilirubin 0.6 Direct Bilirubin 0.2 AST 30 ALT 30 Alkaline Phosphatase 111 C-Reactive Protein 22.47 H Total Protein 7.6 Albumin 4.3 Lipase 11 Urine Color Dark Yellow Urine Appearance Cloudy Urine pH 6.0 Ur Specific [place] >= 1.030 H Urine Protein 100 (2+) H Urine Glucose (UA) Negative Urine Ketones 15 Urine Blood Small (1+) H Urine Nitrite Negative Ur Leukocyte Esterase Negative Urine RBC 3-5 H Urine WBC 0-5 Ur Squamous Epith Cells 3-5 Urine Bacteria None Seen Hyaline Casts 0-2 Imaging Radiologist's Impressions: Impressions Abdomen/Pelvis CT 12/15/24 13:54 IMPRESSION: 1. Findings consistent with colitis involving the ascending and transverse colon as described. 2. Diverticulosis of the descending and sigmoid colon, without evidence of diverticulitis. 3. The endometrial cavity of the uterus is distended with hypodense material. Neoplasm is not excluded and direct visualization is recommended. Electronically signed by: Jesse Mclain MD 12/15/2024 03:22 PM EDT RP Assessment and Plan (1) Sepsis: Qualifiers: Sepsis acute organ dysfunction status: without acute organ dysfunction Sepsis type: sepsis due to unspecified organism Qualified Code(s): A41.9 - Sepsis, unspecified organism Status: Acute (2) Colitis: Status: Acute Plan 59/F with Acute colitis (likely infectious, given bandemia, elevated CRP/ESR), involving the ascending and transverse colon, meet sepsis criteria with bandemia, tachycardi Continue IV ceftriaxone (1 g IV daily) and Flagyl (metronidazole 500 mg IV every 8 hours) stool study if having diarrhea Symptom Management:Zofran fir N/V, Morphine and oxycodone for pain IVF, start liquid diet and advnce as chana Monitor with imflamatory markers (wbc, ESR and CRP) Gastroenterology consultation to assess need for colonoscopy Gerd prilosect dvt prophylaxis: lovenox admission for colitis, sepsis and need iv Abx Quality Stroke Does the patient have a stroke diagnosis?: No VTE Prior VTE?: No VTE Risk Level:: Medical - moderate - high VTE Device Contraindication: Treatment Not Indicated VTE Drug Contraindication: N/A - Med Ordered
--- NOTE | 2024-12-15 16:31 | PHA.MEDREC ---
Pharmacy Consult ? Medication Reconciliation Pharmacy has completed the medication reconciliation. Spoke with pt utilizing product architect (Jhony) and she was able to confirm her medications. Pt confirmed the Gabapentin 300mg cap 1 cap at bedtime only now due to it making the pt too drowsy during the day.
[2024-12-15 17:33] VITALS: BP 112/59; PULSE 88; RESP 20; TEMP 36.5; O2SAT 97
[2024-12-15] MEDS: Enoxaparin Sodium 40 MG/0.4 ML SYRINGE SUBCUT (18:13)
[2024-12-15] MEDS: Lactated Ringers 1,000 ML 150 ML IVCONT (18:14)
[2024-12-15] MEDS: Morphine Sulfate 4 MG/ML CARTRIDGE 2 MG IVPUSH (19:55)
[2024-12-15 20:36] VITALS: BP 113/70; PULSE 85; RESP 16; TEMP 36.8; O2SAT 96
[2024-12-15 21:02] VITALS: BP 126/64; PULSE 89; RESP 18; TEMP 36.6; O2SAT 96
[2024-12-15 21:06] VITALS: BMI 27.2
[2024-12-15] MEDS: Gabapentin 300 MG CAPSULE PO (21:24)
[2024-12-15] MEDS: TiZANidine HCL 4 MG TABLET PO (21:24)
[2024-12-15 22:47] LABS: CDiff Gene PCR NEGATIVE (Negative)
[2024-12-16] MEDS: metroNIDAZOLE/NS 500 MG/100 ML PIGGYBACK 100 MG IV ×4 (00:08→23:30)
[2024-12-16] MEDS: Lactated Ringers 1,000 ML 150 ML IVCONT ×3 (00:08→19:39)
[2024-12-16 03:14] VITALS: BP 102/60; PULSE 79; RESP 17; TEMP 36.8; O2SAT 97
[2024-12-16] MEDS: Acetaminophen 325 MG TABLET 650 MG PO (04:31)
[2024-12-16 06:01] LABS: Alanine Aminotransferase 18 U/L (0-31); Alkaline Phosphatase 79 U/L (39-117); Anion Gap 9 (12-20); Aspartate Amino Transferase 23 U/L (5-31); Bilirubin Total 0.3 mg/dL (0.0-1.0); Blood Urea Nitrogen 11 mg/dL (9-16); C Reactive Protein 17.13 mg/dL (< or = 0.50); Calcium 8.8 mg/dL (8.4-10.2); Carbon Dioxide 26 mmol/L (22-29); Chloride 105 mmol/L (96-108); Creatinine Clr Calc Pharmacy 64.1; Estimated Glomerular Filt Rate > 60; Glucose Random 89 mg/dL (60-115); Potassium 3.2 mmol/L (3.3-5.1); Sodium 137 mmol/L (135-145); Total Protein 5.4 g/dL (6.5-8.0)
[2024-12-16] MEDS: Omeprazole 20 MG CAPSULE.DR PO (06:16)
[2024-12-16 08:31] VITALS: BP 99/54; PULSE 75; RESP 18; TEMP 37.3; O2SAT 95
[2024-12-16] MEDS: Potassium Chloride ER 20 MEQ TAB.ER.PRT 40 MEQ PO (08:40)
--- NOTE | 2024-12-16 08:55 | HO.PM.IMPN ---
Subjective Subjective Date of Service: 12/16/24 Interval History: f/u on colitis, presumed infectious, no fever still with abd pain, and persistent diarrhea Review of Systems mild abd pain, persistent diarrhea Physical Exam Vital Signs: Vital Signs: Last Vital Signs Temp 99.1 F 12/16/24 08:31 Pulse 75 12/16/24 08:31 Resp 18 12/16/24 08:31 BP 99/54 L 12/16/24 08:31 Pulse Ox 95 12/16/24 08:31 O2 Del Method Room Air 12/16/24 08:31 BMI result Body Mass Index 27.2 Const: Other: General: AO X 3, no acute distress Resp: CTA bilateral CVS: S1,S2,RRR GI: +BS, mild lower abd tenderness, no distention Skin: No rash Neuro: motor grossly intact Psych: appropriate affect Objective Data Active Medications Acetaminophen (Acetaminophen 325 Mg Tablet) 650 mg PO Q6H PRN PRN Reason: Pain, Mild 1-3,fever,headache Last Admin: 12/16/24 04:31 Dose: 650 mg Documented By: JEROME Al Hydroxide/Mg Hydroxide (Magnesium Hydrox/Alum Hydrox 30 Ml Oral.Susp) 30 ml PO Q4H PRN PRN Reason: Heartburn Albuterol Sulfate (Albuterol Sulfate 90 Mcg 8 Gm Inhaler) 2 puff INHALE Q6H PRN PRN Reason: shortness of breath or wheezing Calcium Carbonate (Calcium Carbonate 750 Mg Tab.Chew) 750 mg PO Q4H PRN PRN Reason: Heartburn Ceftriaxone Sodium (Ceftriaxone Sodium 1 Gm Vial) 1 gm IVPUSH Q24H [facility] Enoxaparin Sodium (Enoxaparin Sodium 40 Mg/0.4 Ml Syringe) 40 mg SUBCUT Q24H [facility] Last Admin: 12/15/24 18:13 Dose: 40 mg Documented By: RANJIT Gabapentin (Gabapentin 300 Mg Capsule) 300 mg PO BEDTIME [facility] Last Admin: 12/15/24 21:24 Dose: 300 mg Documented By: JHONATAN Lactated Ringer's (Lr) 1,000 mls @ 150 mls/hr IVCONT .Q6H40M [facility] Last Admin: 12/16/24 08:49 Dose: 150 mls/hr Documented By: KEVIN Metronidazole (Flagyl) 500 mg in 100 mls @ 100 mls/hr IV Q8H [facility] Last Infusion: 12/16/24 08:06 Dose: Infused Documented By: KEVIN Magnesium Hydroxide (Milk Of Magnesia 30 Ml Oral.Susp) 30 ml PO DAILY PRN PRN Reason: Constipation Melatonin (Melatonin 3 Mg Tablet) 6 mg PO BEDTIME PRN PRN Reason: Insomnia Morphine Sulfate (Morphine Sulfate 4 Mg/Ml Cartridge) 2 mg IVPUSH Q4H PRN; Protocol PRN Reason: Pain, Severe (Pain Scale 7-10) Last Admin: 12/15/24 19:55 Dose: 2 mg Documented By: DAVID Omeprazole (Omeprazole 20 Mg Capsule.Dr) 20 mg PO DAILY@06 [facility] Last Admin: 12/16/24 06:16 Dose: 20 mg Documented By: JEROME Ondansetron HCl (Ondansetron Hcl 4 Mg/2 Ml Vial) 4 mg IVPUSH Q8H PRN PRN Reason: Nausea and Vomiting Oxycodone HCl (Oxycodone Hcl Immed Release 5 Mg Tablet) 5 mg PO Q6H PRN PRN Reason: Pain, Moderate(Pain Scale 4-6) Polyethylene Glycol (Polyethylene Glycol 3350 17 Gm Powd.Pack) 17 gm PO DAILY PRN PRN Reason: Constipation Sodium Chloride (0.9 % Sodium Chloride Flush 3 Ml Syringe) 3 ml IVFLUSH QSHIFT [facility] Last Admin: 12/16/24 00:26 Dose: Not Given Documented By: JEROME Non-Admin Reason: IV Running Tizanidine HCl (Tizanidine Hcl 4 Mg Tablet) 4 mg PO BEDTIME [facility] Last Admin: 12/15/24 21:24 Dose: 4 mg Documented By: DARBYQC Labs 12/15/24 11:52 12/16/24 05:02 Labs: Laboratory Results - last 24 hr 12/15/24 12/15/24 12/15/24 11:52 12:09 12:31 MCV 83.0 MCH 28.9 MCHC 34.8 RDW 13.2 Plt Count 261 MPV 10.7 Immature Gran % (Auto) Cancelled Neut % (Auto) Cancelled Lymph % (Auto) Cancelled Love % (Auto) Cancelled Eos % (Auto) Cancelled Baso % (Auto) Cancelled Lymph # (Auto) Cancelled Love # (Auto) Cancelled Eos # (Auto) Cancelled Baso # (Auto) Cancelled Abs Immat Gran (auto) Cancelled Absolute Neuts (auto) Cancelled Absolute Nucleated RBC 0.000 Nucleated RBC % (auto) 0.0 Neutrophils % (Manual) 61 Band Neutrophils % 25 H Lymphocytes % (Manual) 11 L Monocytes % (Manual) 3 Abs Neuts (Manual) 7.3 Lymphocytes # (Manual) 0.9 L Monocytes # (Manual) 0.3 Platelet Estimate NORMAL Plt Morphology Comment NORMAL RBC Morphology NORMAL ESR 25 H Hold Purple Top Anion Gap 14 Estim Creat Clear Calc 61.0 Estimated GFR > 60 Random Glucose 106 Lactic Acid 1.3 Calcium 9.9 Magnesium 1.7 Total Bilirubin 0.6 Direct Bilirubin 0.2 AST 30 ALT 30 Alkaline Phosphatase 111 C-Reactive Protein 22.47 H Total Protein 7.6 Albumin 4.3 Lipase 11 Urine Color Dark Yellow Urine Appearance Cloudy Urine pH 6.0 Ur Specific Melrose >= 1.030 H Urine Protein 100 (2+) H Urine Glucose (UA) Negative Urine Ketones 15 Urine Blood Small (1+) H Urine Nitrite Negative Ur Leukocyte Esterase Negative Urine RBC 3-5 H Urine WBC 0-5 Ur Squamous Epith Cells 3-5 Urine Bacteria None Seen Hyaline Casts 0-2 C. difficile Tox B Gene 12/15/24 12/16/24 21:41 05:02 MCV MCH MCHC RDW Plt Count MPV Immature Gran % (Auto) Neut % (Auto) Lymph % (Auto) Love % (Auto) Eos % (Auto) Baso % (Auto) Lymph # (Auto) Love # (Auto) Eos # (Auto) Baso # (Auto) Abs Immat Gran (auto) Absolute Neuts (auto) Absolute Nucleated RBC Nucleated RBC % (auto) Neutrophils % (Manual) Band Neutrophils % Lymphocytes % (Manual) Monocytes % (Manual) Abs Neuts (Manual) Lymphocytes # (Manual) Monocytes # (Manual) Platelet Estimate Plt Morphology Comment RBC Morphology ESR Hold Purple Top SEE NOTE Anion Gap 9 L Estim Creat Clear Calc 64.1 Estimated GFR > 60 Random Glucose 89 Lactic Acid Calcium 8.8 D Magnesium Total Bilirubin 0.3 Direct Bilirubin AST 23 ALT 18 Alkaline Phosphatase 79 C-Reactive Protein 17.13 H Total Protein 5.4 L Albumin 3.0 L Lipase Urine Color Urine Appearance Urine pH Ur Specific Melrose Urine Protein Urine Glucose (UA) Urine Ketones Urine Blood Urine Nitrite Ur Leukocyte Esterase Urine RBC Urine WBC Ur Squamous Epith Cells Urine Bacteria Hyaline Casts C. difficile Tox B Gene NEGATIVE Assessment and Plan (1) Colitis: Status: Acute (2) Diarrhea: Status: Acute Plan 59/F with Acute colitis (likely infectious, given bandemia, elevated CRP/ESR), involving the ascending and transverse colon, meet sepsis criteria with bandemia, tachycardi Continue IV ceftriaxone (1 g IV daily) and Flagyl (metronidazole 500 mg IV every 8 hours) C dif negative, GI panel pending Symptom Management:Zofran fir N/V, Morphine and oxycodone for pain IVF, liquid diet and advnce as chana Monitor with imflamatory markers (wbc, ESR and CRP), CRP down Gastroenterology consultation to assess need for colonoscopy down the road Gerd prilosect dvt prophylaxis: lovenox admission for colitis, sepsis and need iv Abx Quality Stroke Does the patient have a stroke diagnosis?: No VTE Prior VTE?: No VTE Risk Level:: Medical - moderate - high VTE Device Contraindication: Treatment Not Indicated VTE Drug Contraindication: N/A - Med Ordered
[2024-12-16 11:40] LABS: Adenovirus F 40/41 Not Detected (Not Detect.); Astrovirus Not Detected (Not Detect.); Cryptosporidium Not Detected (Not Detect.); Cyclospora cayetanensis Not Detected (Not Detect.); E. coli EAEC Not Detected (Not Detect.); E. coli EPEC Not Detected (Not Detect.); E. coli ETEC Not Detected (Not Detect.); E. coli STEC Not Detected (Not Detect.); Entamoeba histolytica Not Detected (Not Detect.); Giardia lamblia Not Detected (Not Detect.); Norovirus GI/GII Not Detected (Not Detect.); Plesiomonas shigelloides Not Detected (Not Detect.); Rotavirus A Not Detected (Not Detect.); Salmonella Not Detected (Not Detect.); Sapovirus Not Detected (Not Detect.); Shigella sp./EIEC Not Detected (Not Detect.); Vibrio Not Detected (Not Detect.); Vibrio Cholerae Not Detected (Not Detect.); Yersinia enterocolitica Not Detected (Not Detect.)
--- NOTE | 2024-12-16 11:49 | CONS_ITS ---
DATE OF SERVICE: 12/16/2024 REFERRING PHYSICIAN: Dr. Burrell REASON FOR CONSULTATION: Colitis. HISTORY OF PRESENT ILLNESS: The patient is a pleasant 59-year-old woman who was admitted to the hospital after presenting to the emergency room yesterday with complaints of lower abdominal pain, nausea, vomiting, and diarrhea as well as a low-grade fever. She denies any rectal bleeding. Stools have been loose. She is unsure how many she has had on a daily basis. She was evaluated in the emergency department with laboratory studies and imaging, which are reviewed, and she was found to have changes consistent with colitis involving the ascending and transverse colon. Diverticulosis was also noted. The patient denies any prior history of colitis. She has been evaluated with colonoscopy in the past, but thinks this was done elsewhere. Records available here show a colonoscopy in October 2014, which showed diverticulosis, and a 10-year followup was recommended reviewed this today. She has been treated with antibiotics and reports that she feels better. PAST MEDICAL HISTORY: 1. Gastroesophageal reflux disease. 2. Arthritis. 3. Brain lesion. 4. Multiple sclerosis. 5. Hyperlipidemia. 6. Empty sella syndrome. CURRENT MEDICATIONS: Her current medication list is reviewed in the chart. ALLERGIES: TRAMADOL. FAMILY HISTORY: This is reviewed with the patient and is negative for Crohn disease or ulcerative. SOCIAL HISTORY: There is no current tobacco, alcohol, or substance abuse. REVIEW OF SYSTEMS: SKIN: No pruritus. HEENT: Negative. CARDIOPULMONARY: No shortness of breath or chest pain. GASTROINTESTINAL: As above. GENITOURINARY: Negative. NEUROPSYCHIATRIC: Negative. PHYSICAL EXAMINATION: GENERAL: Shows a pleasant female, lying comfortably in bed. The history is obtained with the use of an critical care educator. VITAL SIGNS: Stable. SKIN: Anicteric. HEENT: Shows no scleral icterus. NECK: Without lymphadenopathy or thyromegaly. LUNGS: Clear. HEART: Shows a regular rate and rhythm. S1, S2. No murmur. ABDOMEN: Soft without focal masses or tenderness. Bowel sounds are present. No organomegaly is noted. EXTREMITIES: Without edema. LABORATORY DATA AND IMAGING STUDIES: Reviewed. IMPRESSION: Colitis. The most likely cause for her symptoms is an infectious colitis, which is relatively acute. She does not have any history of inflammatory bowel disease, and I agree with treating her with antibiotics and obtaining stool specimens. She will need eventual followup colonoscopy at some point. This will most likely be done as an outpatient. Thanks for asking me to see her. I will follow her in the hospital with you. MD BHARTI Miguel/LALIT / [phone]
[2024-12-16 12:24] LABS: Campylobacter Detected (Not Detect.)
[2024-12-16] MEDS: Azithromycin 500 MG in 0.9 % Sodium Chloride 250 ML 125 MG IV (13:52)
--- NOTE | 2024-12-16 15:53 | MHC.CM.PN ---
CM ASSESSMENT COMPLETED W/ NURSING STAFFING COORDINATOR ASSISTANCE. PATIENT LIVES IN AN APT W/ SONS & GRANDDTR FUNCTIONALLY INDEPENDENT. DENIES USE OF DME OR SERVICES. NO HCP. CM PROVIDED EDUCATION AND OFFERED ASSISTANCE. PATIENT DECLINED. PCP VALERIE CARRILLO MD DP: GOAL IS HOME SELF CARE, FRIEND TO TRANSPORT. CM WILL CONTINUE TO FOLLOW.
[2024-12-16 16:00] VITALS: BP 103/54; PULSE 52; RESP 12; TEMP 37.8; O2SAT 100
[2024-12-16] MEDS: cefTRIAXone sodium 1 GM VIAL IVPUSH (16:00)
[2024-12-16] MEDS: 0.9 % Sodium Chloride Flush 3 ML SYRINGE IVFLUSH (16:01)
[2024-12-16] MEDS: Enoxaparin Sodium 40 MG/0.4 ML SYRINGE SUBCUT (17:42)
[2024-12-16 19:15] VITALS: TEMP 36.4
[2024-12-16 20:00] VITALS: BP 116/56; PULSE 80; RESP 18; TEMP 36.9; O2SAT 94
[2024-12-16] MEDS: TiZANidine HCL 4 MG TABLET PO (20:48)
[2024-12-16] MEDS: Gabapentin 300 MG CAPSULE PO (20:48)
[2024-12-17] MEDS: Lactated Ringers 1,000 ML 150 ML IVCONT ×2 (03:16→08:20)
[2024-12-17 03:33] VITALS: BP 106/53; PULSE 80; RESP 18; TEMP 36.1; O2SAT 95
[2024-12-17] MEDS: Omeprazole 20 MG CAPSULE.DR PO (05:47)
[2024-12-17 08:06] VITALS: BP 117/56; PULSE 79; RESP 18; TEMP 36.3; O2SAT 94
[2024-12-17] MEDS: metroNIDAZOLE/NS 500 MG/100 ML PIGGYBACK 100 MG IV (08:19)
--- NOTE | 2024-12-17 09:02 | P.DS_ITS ---
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 A CT scan revealed colitis involving the ascending and transverse colon. Laboratory findings include 25% bandemia, CRP of 22.2, and ESR of 25. In the ED, she received Zofran for nausea, morphine for pain, and ceftriaxone and Flagyl for infection. She is not tolerating oral intake, necessitating admission. This is her first episode of colitis. She denies recent travel or sick contact, no household members with similar symptoms. No recent Abx use hospital course: A 59-year-old woman presented with acute colitis, likely infectious, involving the ascending and transverse colon. She met sepsis criteria, evidenced by bandemia, tachycardia, and elevated ESR and CRP levels. She was started on IV ceftriaxone, Flagyl, IV fluids, and an antiemetic. A stool study confirmed Campylobacter, and azithromycin 500 mg daily was added to her regimen. Gastroenterology evaluated her, recommending antibiotics and a possible colonoscopy in the future. Her diet was advanced, and she is now tolerating a regular diet. She will be discharged to complete a course of azithromycin, continue supportive care with ample oral hydration, maintain personal hygiene with good handwashing, and follow up as an outpatient. Gerd prilosect Time Attestation Discharge Coordination Time (in mins): 35 Quality: Safe Use of Opioids Does Pt have an Active Cancer Diagnosis on the Problem List?: No Quality: Stroke Does the patient have a stroke diagnosis?: No Physical Exam Vital Signs: Vital Signs: Last Vital Signs Temp 97.3 F 12/17/24 08:06 Pulse 79 12/17/24 08:06 Resp 18 12/17/24 08:06 BP 117/56 L 12/17/24 08:06 Pulse Ox 94 12/17/24 08:06 O2 Del Method Room Air 12/17/24 08:06 BMI result Body Mass Index 27.2 DS: Data Data Completed and Pending Labs on day of discharge: Laboratory Results - last 24 hr 12/15/24 21:41 Stl C. cayetanensis PCR Not Detected Stool Rotavirus A PCR Not Detected Stl Adenov F 40/41 PCR Not Detected Stool Astrovirus (PCR) Not Detected Stool Campylobacter PCR Detected A Stool Cryptosporidium PCR Not Detected Stl Sh Tox Pr E STEC PCR Not Detected Stool E coli O157 PCR Not applicable Stl Enterotoxigenic E PCR Not Detected Stool EPEC (PCR) Not Detected Stool EAEC (PCR) Not Detected Stl E. histolytica PCR Not Detected Stool Giardia Lamblia PCR Not Detected Stl P. shigelloides PCR Not Detected Stool Salmonella PCR Not Detected Stool Sapovirus (PCR) Not Detected Stl Shigella/EIEC PCR Not Detected St Y.enterocolitica PCR Not Detected Stool Vibrio (PCR) Not Detected Stl Vibrio cholerae PCR Not Detected Stl Norovirus GI/GII PCR Not Detected Preliminary micro results at discharge 12/15/24 12:31 Blood Culture - Preliminary Blood - Venous No growth after 24 hours. 12/15/24 12:09 Blood Culture - Preliminary Blood - Venous No growth after 24 hours. Discharge Plan Discharge Referrals: Lillian Bolden MD [Primary Care Provider] - 1 Week Discharge Medications: No Action tizanidine 4 mg tablet 4 mg PO BEDTIME 30 Days Qty: 30 6RF albuterol sulfate [Ventolin HFA] 90 mcg/actuation HFA aerosol inhaler 2 puff inhalation Q6H PRN (Reason: shortness of breath or wheezing) 30 Days Qty: 8 1RF (DME) Shower Chair Misc See Rx Instructions .Route Qty: 1 0RF Rx Instructions: As directed ibuprofen 800 mg tablet 800 mg PO TID PRN (Reason: pain) 30 Days Qty: 90 3RF omeprazole 20 mg tablet,delayed release (DR/EC) 20 mg PO DAILY@0630 gabapentin 300 mg capsule 300 mg PO BEDTIME Diet: Advance to usual diet Activity on Discharge: As tolerated Print Language: Vietnamese Care Plan Goals: recovery from colitis, diarrhea, nausea and vomiting form campylobacter Health Concerns: campylobacter colitis Plan of Treatment: Stay well hydrated, avoid heavy meals for the next couple of days, stay well hydrated and follow up with your doctor in one week, practice good hand washing
--- NOTE | 2024-12-17 13:32 | MHC.CM.PN ---
Patient medically cleared for dc home self care. Private transport.
--- NOTE | 2024-12-17 14:02 | PC.NURSE ---
informed of pt's diarrhea. iv removed. belongings with pt. cloth classer at bedside for med pass, assessment and d/c
== END 2024-12-17 14:36 | disposition home or self-care (01) | DRG 872 ==
LOC: HO.ED 15:45 → HO.EDOVER 16:05 → HO.S3 19:12
PROVIDERS: Emergency Medicine; Physician Assistant Medical; Admitting Provider Student in an Organized Health Care Education/Training Program; Emergency Provider Emergency Medicine Emergency Medical Services; PCP Internal Medicine; Visit Provider Internal Medicine
DX: A41.9 Sepsis, unspecified organism (principal); A04.5 Campylobacter enteritis; G35 Multiple sclerosis; K21.9 Gastro-esophageal reflux disease without esophagitis; Z79.899 Other long term (current) drug therapy
CPT/HCPCS: 36415; 74177; 80048; 80053; 80076; 81001; 83605; 83690; 83735; 85007; 85027; 85652; 86140; 87040; 87493; 87507; 93005; 99285; J0131; J0456; J0696; J1650; J1836; J2270; J2405; J7120; Q9967

== ENCOUNTER → 2024-12-15 11:35 | Outpatient (BNV) | payer OTHER, SELFPAY | PROVIDERS: Admitting Provider Student in an Organized Health Care Education/Training Program; Emergency Provider Emergency Medicine Emergency Medical Services; PCP Internal Medicine; Visit Provider Internal Medicine | DX: R00.0 Tachycardia, unspecified (principal) | CPT/HCPCS: 93010 ==

== ENCOUNTER → 2024-12-15 13:54 | Outpatient (BNV) | payer OTHER, SELFPAY | PROVIDERS: Emergency Provider Emergency Medicine Emergency Medical Services; PCP Internal Medicine; Visit Provider Radiology Diagnostic Radiology | DX: K52.9 Noninfective gastroenteritis and colitis, unspecified (principal) | CPT/HCPCS: 74177 ==

== ENCOUNTER → 2024-12-15 15:40 | Outpatient (BNV) | payer OTHER, SELFPAY | PROVIDERS: Admitting Provider Student in an Organized Health Care Education/Training Program; Emergency Provider Emergency Medicine Emergency Medical Services; PCP Internal Medicine; Visit Provider Internal Medicine | DX: A41.9 Sepsis, unspecified organism (principal); K52.9 Noninfective gastroenteritis and colitis, unspecified | CPT/HCPCS: 99222; 99232 ==

== ENCOUNTER 2024-12-21 15:07 | Outpatient (AMB) | payer OTHER, SELFPAY ==
--- NOTE | 2024-12-21 15:12 | A.OFFPC_ITS ---
Vital Signs 12/21/24 15:18 Height 5 ft 2 in Weight 148 lb 2 oz BMI 27.1 BP 112/70 Blood Pressure Location Lt brachial Position Sitting Intake Visit Reasons: REPLACED BY [facility] 12/17 Abdominal pain Social Sciences Instructor Required: No Accompanied by: Self / Same As Patient Allergies tramadol Allergy (Intermediate, Verified 12/21/24 15:23) headaches Medication List - Last Reconciled 12/21/24 by Lillian Álvarez MD gabapentin 300 mg PO BEDTIME ibuprofen 800 mg PO TID PRN 30 days loperamide (Imodium A-D) 2 mg PO Q4H PRN omeprazole 20 mg PO DAILY@0630 Shower Chair As directed tizanidine 4 mg PO BEDTIME 30 days Ventolin HFA 90 mcg/actuation (albuterol sulfate) 2 puffs inhalation Q6H PRN 30 days NS Tobacco use date assessed: 11/02/24 Dental Screening Dental Screen Date: 11/02/24 HPI [facility] Information Date of Discharge 12/17/24 Discharged From [facility] Interactive Contact Date (Reference documentation from this date) 12/20/24 HPI Comments History of Present Illness Details The patient is a 59-year-old female presenting with follow-up concerns after hospitalization for colitis caused by Campylobacter jejuni. Her symptoms were presumably linked to the ingestion of undercooked meat. She experienced diarrhea, nausea, vomiting, and low potassium levels during the episode. An elevated CRP indicated significant inflammation. She was treated with IV ceftriaxone and oral metronidazole and discharged on December 17. No recent neurological follow-up for her multiple sclerosis has occurred. She denied any blood in the stools. A repeat of the inflammatory markers and electrolytes is planned, given the decrement trends noted during hospitalization. [facility] Medical History (Updated 12/21/24 @ 15:37 by Lillian Álvarez MD) Empty sella Axillary lump Lesion of frontal lobe of brain Right shoulder pain Tachycardia Neck pain Numbness Insomnia GERD (gastroesophageal reflux disease) Dyslipidemia Polyarthralgia Multiple sclerosis Hyperlipemia Surgical History History of colonoscopy Hx of tubal ligation Family History Father Hypertension Mother Diabetes mellitus Breast cancer Maternal Grandmother Breast cancer Social History Household Members: Children Housing: Apartment Do you presently have visiting nurse or other home services: No Alcohol intake: never Patient Tobacco Use Status: Never used Tobacco e-Cigarette/Vaping Use: Never Used Second Hand Smoke Exposure: No service: No Current occupational status: disabled Cognitive needs: No Hearing needs: No Vision needs: No Questionnaire Thrive Questionnaire Date Thrive assessed: 11/02/24 I am a: Patient What is your living situation today?: I have a steady place to live Within the past 12 months, did the food you bought not last and you didn't have the money to get more?: I choose not to answer this question Within the past 12 months, did you worry whether your food would run out before you got money to buy more?: I choose not to answer this question Do you have trouble paying for medicines?: No Do you have trouble getting transportation to medical appointments?: No Do you have trouble paying your heating and electricity bill?: No Do you have trouble taking care of your child, family member or friend?: No Do you have trouble with day-to-day activities such as bathing, preparing meals, shopping, managing finances, etc.?: No Are you currently unemployed and looking for a job?: Yes Are you interested in more education?: No Please select the resources that you would like help with: None Currently or been in a relationship where the following occur: I choose not to answer THRIVE Score: 0 DERRICK-7 AMB Questionnaire DERRICK-7 Date DERRICK - 7 assessed: 11/02/24 Source: Developed by Drs. Jesse White, Jaz Carrion, Giovanny Mckinley and colleagues, with an educational gopi from [employer]. Review of Systems Const All systems reviewed & are unremarkable except as noted in HPI and below Card Denies chest pain at rest, Denies chest pain with activity, Denies edema, Denies irregular heart rhythm, Denies claudication, Denies dyspnea, Denies dyspnea on exertion, Denies orthopnea, Denies paroxysmal nocturnal dyspnea and Denies slow heart rate Resp Denies cough, Denies dyspnea and Denies dyspnea on exertion GI Denies abdominal pain, Denies change in bowel habits, Denies excessive flatus, Denies nausea and Denies vomiting Denies urinary incontinence, Denies urinary hesitancy and Denies urinary urgency Musc Denies atrophy, Denies deformity and Denies limited range of motion Skin/Breast Denies bleeding lesions, Denies changing lesions and Denies rash Physical exam (Primary Care) Vital Signs: Last Vital Signs BP 112/70 12/21/24 15:18 BMI result Body Mass Index 27.1 Tobacco/Smoking Status: Tobacco use Status Tobacco use date assessed 11/02/24 12/21/24 15:15 Patient Tobacco Use Status Never used Tobacco 12/21/24 15:15 e-Cigarette/Vaping Use Never Used 12/21/24 15:15 Thrive Assessment: Date of Thrive Assessment Date Thrive assessed 11/02/24 12/21/24 15:15 Currently or been in a relationship where the following occur: I choose not to answer Resp Effort & Inspection: normal respiratory effort Auscultation: clear to auscultation bilaterally Cardio Jugular venous distension: no JVD Rate: regular rate Rhythm: regular rhythm Heart sounds: S1 normal heart sound present and S2 normal heart sound present GI Inspection: Yes normal to inspection Palpation (GI): Soft to palpation and nontender Auscultation: normal bowel sounds Extrem General: Yes full ROM Coding Level of Care Code TCM Mod MDM <= 7 Days Diagnoses Colitis K52.9 Diarrhea R19.7 Diarrhea type: unspecified type Hypokalemia E87.6 Multiple sclerosis G35 Time Spent (min) 25 Assessment & Plan Assessment & Plan (1) Colitis: Code(s): K52.9 - Noninfective gastroenteritis and colitis, unspecified Category: Medical (2) Diarrhea: Code(s): R19.7 - Diarrhea, unspecified Category: Medical Qualifiers: Diarrhea type: unspecified type Qualified Code(s): R19.7 - Diarrhea, unspecified (3) Hypokalemia: Code(s): E87.6 - Hypokalemia Category: Medical (4) Multiple sclerosis: Code(s): G35 - Multiple sclerosis Category: Medical Plan Follow-up for colitis includes monitoring CRP and potassium levels to ensure resolution. IV ceftriaxone and oral metronidazole effectively addressed infection. A colonoscopy is recommended to investigate any underlying issues. Coordination with neurology for her multiple sclerosis is advised as the patient has not had recent evaluations, though no current symptoms necessitate immediate neurological intervention. Observation for any new or returning symptoms will necessitate further investigations. Patient was informed and verbally consented to the use of an ambient scribe for clinic note documentation during this visit. During the consultation, I elaborated on the follow-up strategy after her recent hospital stay for colitis. We discussed the use of antibiotics during her hospitalization, which effectively addressed the infection attributed to Campylo bacter jejuni. Considering the gastrointestinal inflammation demonstrated by elevated CRP levels at discharge, we discussed the plan to reassess these markers shortly. I emphasized the importance of routine monitoring of her condition, including a subsequent colonoscopy, to rule out any other potential underlying causes of her symptoms. Additionally, the importance of neurologic follow-up given her history of multiple sclerosis was stressed, even though presently, she experiences no exacerbations. Orders: Orders 2 Erythrocyte Sedimentation Rate Today K52.9 - Noninfective gastroenteritis and colitis, unspecified Comprehensive Met. Panel Today E87.6 - Hypokalemia C Reactive Protein Today K52.9 - Noninfective gastroenteritis and colitis, unspecified Referrals Open Access Screening Colonoscopy Referral Z12.12 - Encounter for screening for malignant neoplasm of rectum Neurology Referral G35 - Multiple sclerosis Patient Instructions: - Schedule repeat lab tests in 10 days to check inflammation and potassium levels. - Maintain dietary measures to support adequate potassium intake. - Await scheduling for colonoscopy for further gastrointestinal evaluation. - Monitor for any new or unresolved symptoms and report them promptly. - Arrange a neurology consultation for multiple sclerosis management if not done recently.
[2024-12-21 15:18] VITALS: BP 112/70; BMI 27.1
--- OUTSIDE RECORDS SUMMARY | 2024-12-21 18:14 | XMS_ITS | Patient Health Record ---
Author Organization [facility] Address [address] [place] [address] Care Team Providers Care Kennel Technician Name Role Phone Lillian Bolden Primary Care Provider Unavailab José Victoria Jr Unavailable Reason For Referral No Information Problems Problem Type SNOMED Code ICD Code Onset Dates Problem Status W/U Status Risk Notes Problem [id number] Elevated liver function tests (R94.5) Active confirmed Plan Of Treatment Pending Test Test Name Order Date LIVER PROFILE 09/02/2019 Future Test Test Name Order Date COLONOSCOPY 08/03/2014 Insurance Providers Payer Name Payer Address Payer Phone Subscriber Number Group Number Insured Name Patient Relationship to Insured Coverage Start Date Coverage End Date [facility] [address] Attn Claims NELLA Perez [id number] LILLIAN SCHAEFER Self - patient is the insured Medical (General) History Medical History History ICD Code elevated Cholesterol colonoscopy 05/2014, followup do well Surgical History Surgery Date(Month/Year) tubal ligation
== END 2024-12-21 15:35 | disposition home or self-care (01) ==
LOC: HO.HMCH 15:08
PROVIDERS: PCP Internal Medicine; Visit Provider Internal Medicine
DX: K52.9 Noninfective gastroenteritis and colitis, unspecified (principal); E87.6 Hypokalemia; G35 Multiple sclerosis

== ENCOUNTER → 2024-12-21 15:07 | Outpatient (BNVA) | payer OTHER, SELFPAY | PROVIDERS: PCP Internal Medicine; Visit Provider Internal Medicine | DX: K52.9 Noninfective gastroenteritis and colitis, unspecified (principal); E87.6 Hypokalemia; G35 Multiple sclerosis | CPT/HCPCS: 99495 ==

== ENCOUNTER 2024-12-23 11:03 | Outpatient (AMB) | payer OTHER, SELFPAY ==
[2024-12-23 11:10] VITALS: BP 110/78; PULSE 84; O2SAT 97; BMI 27.0
--- NOTE | 2024-12-23 11:10 | MHC.OFFVIS ---
Vital Signs 12/23/24 11:10 Height 5 ft 2 in Weight 147 lb 6 oz BMI 27.0 BP 110/78 Blood Pressure Location Rt brachial Position Sitting Pulse 84 Pulse Source Pulse Oximeter Pulse Oximetry (%) 97 Intake Visit Reasons: Follow up Intake Note: patient presents for follow up cervical spine MRI 03/22/24,labs 12/15/24 Social Service Worker Services: Social Service Worker Present Social Service Worker Name: flaca duran Information Interpreted: non-clinical & clinical Allergies tramadol Allergy (Intermediate, Verified 12/23/24 11:12) headaches Medication List - Last Reconciled 12/23/24 by Leila Jackson MD gabapentin 300 mg PO BEDTIME ibuprofen 800 mg PO TID PRN 30 days loperamide (Imodium A-D) 2 mg PO Q4H PRN omeprazole 20 mg PO DAILY@0630 Shower Chair As directed Ventolin HFA 90 mcg/actuation (albuterol sulfate) 2 puffs inhalation Q6H PRN 30 days NS HPI Comments Details: 59y/o Right handed female comes for follow up of Multiple Sclerosis .she has increased tingling in lower extremities she was recently admitted for colitis. she stopped teroflunamide 7 mg qd after her last visit due to hair fall. she was diagnosed with MS in 2018 - when she had numbness and tinglining in her forehead , face - MRI showed some lesions c/w MS. she is a poor historian and farfan snot recall being on any medications .s he recalls seeing Dr. Sánchez few years ago. she has had series of MRI since then - her last wa sin 2022 - c/w MS. SHe denies loss of vision double vision, weakness, numbness, gait problems , vertigo, speech issues ,weakness etc. she denies any memory issues. she has urinary urgency , no retention or constipation or incontinence. [facility] Medical History Empty sella Axillary lump Lesion of frontal lobe of brain Right shoulder pain Tachycardia Neck pain Numbness Insomnia GERD (gastroesophageal reflux disease) Dyslipidemia Polyarthralgia Multiple sclerosis Hyperlipemia Surgical History History of colonoscopy Hx of tubal ligation Family History Father Hypertension Mother Diabetes mellitus Breast cancer Maternal Grandmother Breast cancer Social History Household Members: Children Housing: Apartment Do you presently have visiting nurse or other home services: No Alcohol intake: never Patient Tobacco Use Status: Never used Tobacco e-Cigarette/Vaping Use: Never Used Second Hand Smoke Exposure: No service: No Current occupational status: disabled Cognitive needs: No Hearing needs: No Vision needs: No Physical Exam Vital Signs: Last Vital Signs Pulse 84 12/23/24 11:10 BP 110/78 12/23/24 11:10 Pulse Ox 97 12/23/24 11:10 BMI result Body Mass Index 27.0 Const General: cooperative, healthy appearing, comfortable and no acute distress Nutritional Appearance: average body habitus Orientation/consciousness: patient oriented x3 Eyes Pupils: Equal, round and reactive pupils present Neuro General: patient oriented x3, gait normal, tone normal, moves all extremities and no focal motor deficits Cranial nerves: Yes Facial sensation intact/muscles of mastication intact, Yes Equal, round and reactive pupils present, Yes Bilaterally intact EOM present, Yes Nystagmus not present, Yes Normal facial strength present, Yes Midline tongue present, Yes Symmetric palate elevation present and Yes Ability to bilaterally elevate shoulders present Cognition (Neuro): normal cognition Gait exam (Neuro): Normal gait present Motor exam (neuro): 5/5 motor strength present throughout and Normal motor muscle tone present throughout Deep tendon reflexes (DTR's): Right triceps reflex intensity grade: 2+, Left triceps reflex intensity grade: 2+, Rt Biceps (C5, C6): 2+, Left biceps reflex intensity grade: 2+, Right brachioradialis reflex intensity grade: 2+, Left brachioradialis reflex intensity grade: 2+, Right patellar reflex intensity grade: 2+ and Left patellar reflex intensity grade: 2+ Coordination: kvijie-yh-qolt test normal and zkzu-[id number]-bklu test normal Assessment & Plan Assessment & Plan (1) Multiple sclerosis: Code(s): G35 - Multiple sclerosis Category: Medical Plan Repeat MRI brain with karon a MRI LS spine refer to [facility] center for further management - consider ocrevus - does not want aubagio EMG NCS LE I will trial he jim vumerity 231 mg bid Orders: Orders MR head/brain wo/w con Today G35 - Multiple sclerosis NE nerve conduction velocity Today R20.0 - Anesthesia of skin MR lumbar spine wo/w con Today G35 - Multiple sclerosis NE electromyogram (EMG) Today R20.0 - Anesthesia of skin Referrals Neurology Referral G35 - Multiple sclerosis Medications: New diroximel fumarate (Vumerity) 231 mg PO BID 7 days 14 caps 0RF Coding Level of Care Code Est Pt Level 4 (94021) Complex EM visit Add On G2211 Diagnoses Multiple sclerosis G35
--- OUTSIDE RECORDS SUMMARY | 2024-12-23 13:01 | XMS_ITS | Patient Health Record ---
Author Organization [facility] Address [address] [place] [address] Care Team Providers Care Recreational Director Name Role Phone Lillian Bolden Primary Care Provider Unavailab José Victoria Jr Unavailable [phone] Reason For Referral No Information Problems Problem Type SNOMED Code ICD Code Onset Dates Problem Status W/U Status Risk Notes Problem [id number] Elevated liver function tests (R94.5) Active confirmed Plan Of Treatment Pending Test Test Name Order Date LIVER PROFILE 09/02/2019 Future Test Test Name Order Date COLONOSCOPY 08/03/2014 Insurance Providers Payer Name Payer Address Payer Phone Subscriber Number Group Number Insured Name Patient Relationship to Insured Coverage Start Date Coverage End Date [facility] [address] Attn Claims NELLA Perez [id number] LILLIAN SCHAEFER Self - patient is the insured Medical (General) History Medical History History ICD Code elevated Cholesterol colonoscopy 05/2014, followup do well Surgical History Surgery Date(Month/Year) tubal ligation
== END 2024-12-23 11:42 | disposition home or self-care (01) ==
LOC: HO.HSMS 11:04
PROVIDERS: PCP Internal Medicine; Visit Provider Psychiatry & Neurology Neurology
DX: G35 Multiple sclerosis (principal)
CPT/HCPCS: 99214; G2211

== ENCOUNTER → 2024-12-23 11:03 | Outpatient (BNVA) | payer OTHER, SELFPAY | PROVIDERS: PCP Internal Medicine; Visit Provider Psychiatry & Neurology Neurology | DX: G35 Multiple sclerosis (principal) | CPT/HCPCS: 99212 ==

== ENCOUNTER → 2025-01-10 13:04 | Outpatient (BNV) | payer OTHER, SELFPAY | PROVIDERS: PCP Internal Medicine; Visit Provider Radiology Diagnostic Radiology | DX: M47.816 Spondylosis without myelopathy or radiculopathy, lumbar region (principal) | CPT/HCPCS: 70553; 72158 ==

== ENCOUNTER 2025-01-10 13:06 | Outpatient (REF) | payer OTHER, SELFPAY ==
--- NOTE | ~2025-01-10 | MR_ITS ---
EXAMINATION: MR BRAIN WITHOUT AND WITH CONTRAST CLINICAL INFORMATION: Multiple sclerosis COMPARISON: June 10, 2023. TECHNIQUE: Multiplanar, multisequence MRI of the brain was obtained before and after the intravenous administration of 6.5 mL gadolinium based (Gadavist) without reported immediate complications. FINDINGS: Multifocal, patchy and ovoid shaped perpendicularly oriented to the corpus callosum deep periventricular white matter and white matter nonenhancing no restricted diffusion hyperintense T2 FLAIR signal abnormality involving the supratentorial compartment and the largest in the right body corpus callosum/cingulate gyrus No restricted diffusion. No abnormal enhancement within the intra-axial or the extra-axial compartment of the cranium. No acute intracranial hemorrhage, mass effect, midline shift, hydrocephalus or herniation. White-white matter differentiation is normal. Flow-void signal within the main cerebral vessels is normal. Prominence of the extra-axial CSF spaces cerebral sulci. Sellar/suprasellar region demonstrated CSF prominence suggesting diaphragmatic sella insufficiency. Craniocervical junction demonstrates normal position of the cerebellar tonsils. MR/MR head/brain wo/w con IMPRESSION: Nonenhancing or restricted diffusion demyelinating plaques, supratentorial compartment with similar morphology pattern and distribution. No acute stroke. Electronically signed by: Marco Singh MD 01/10/2025 03:34 PM EDT
--- NOTE | ~2025-01-10 | MR_ITS ---
EXAMINATION: MR LUMBAR SPINE WITHOUT AND WITH CONTRAST CLINICAL INFORMATION: Multiple sclerosis. COMPARISON: June 21, 2016 TECHNIQUE: MRI of the lumbar spine was obtained using routine sequences with and without contrast. Intravenous contrast: (Gadavist) 6.5 mL . No reported immediate complications. FINDINGS: Left rib-bearing vertebra labeled T12. Levoconvex curvature apex at L1-2. Bone marrow inhomogeneity. No bone marrow STIR signal abnormality. No abnormal enhancement within the leptomeningeal compartment of the prevertebral compartment. Disc desiccation at T12-L1, L1-2 and to a lesser extent L2-3 and L4-5 levels. Conus medullaris ends at inferior endplate of T12 with normal signal. Bone marrow inhomogeneity. There is normal alignment. T12-L1: Facet joint and ligamentum flavum hypertrophy. No compression upon neural elements. L1-2: Right subarticular and foraminal broad-based disc herniation. Right neuroforamina narrowing. No gross central spinal canal stenosis. L2-3: Broad-based disc bulging. Facet joint and ligamentum flavum hypertrophy. Reduced AP diameter of the thecal sac and neuroforamina. L3-4: Broad-based disc bulging. Facet joint and ligamentum flavum hypertrophy. Reduced AP diameter of the thecal sac and neuroforamina. L4-5: Broad-based disc bulging. Facet joint and ligamentum flavum hypertrophy. Reduced AP diameter of the thecal sac. Bilateral neuroforamina narrowing likely encroaching the L4 exiting nerve roots. L5-S1: Broad-based disc bulging. Facet joint and ligamentum flavum hypertrophy. Reduced AP diameter of the thecal sac and neuroforamina. No prevertebral compartment hematoma, mass or fluid collections. MR/MR lumbar spine wo/w con IMPRESSION: No abnormal enhancement. No acute fracture or gross listhesis. Levoconvex curvature apex at L1-2 and multilevel spondylosis resulting in central spinal canal and bilateral neuroforamina narrowing at L2-3 and to a lesser extent L4-5. Electronically signed by: Marco Singh MD 01/10/2025 03:41 PM EDT
--- OUTSIDE RECORDS SUMMARY | 2025-01-10 13:42 | XMS_ITS | Patient Health Record ---
Author Organization [facility] Address [address] [place] [address] Care Team Providers Care Room Cooler Installer Name Role Phone Lillian Bolden Primary Care Provider Unavailab José Victoria Jr Unavailable Reason For Referral No Information Problems Problem Type SNOMED Code ICD Code Onset Dates Problem Status W/U Status Risk Notes Problem [id number] Elevated liver function tests (R94.5) Active confirmed Plan Of Treatment Pending Test Test Name Order Date LIVER PROFILE 09/02/2019 Future Test Test Name Order Date COLONOSCOPY 08/03/2014 Next Appt Details Provider Name:José summers Jr, 04/18/2025 01:15:00 PM, [address], [address], [place], [address], Insurance Providers Payer Name Payer Address Payer Phone Subscriber Number Group Number Insured Name Patient Relationship to Insured Coverage Start Date Coverage End Date [facility] [address] Attn Claims NELLA Perez [id number] LILLIAN SCHAEFER Self - patient is the insured Medical (General) History Medical History History ICD Code elevated Cholesterol colonoscopy 05/2014, followup do well Surgical History Surgery Date(Month/Year) tubal ligation
--- OUTSIDE RECORDS SUMMARY | 2025-01-10 13:42 | XMS_ITS | Clinical Summary ---
Author Organization [employer] Address [address] [place] [address] [address] [place] [address] Care Team Providers Care Satellite Communications Operator Name Role Phone Unavailable Primary Care Provider [...] 1964 FIT 1964 FOBT 1964 Sigmoidoscopy 1964 Disability Screening 1964 Alcohol/Substance Use Screening 1976 Tobacco Screening 1976 DTaP/Tdap/Td Vaccines (1 - Tdap) 02/15/1983 Pap Smear 02/15/1985 Cervical Cancer Screening 02/15/1994 HPV/Cotest 02/15/1994 Mammogram 2004 Pneumococcal Vaccine: 50+ Years (1 of 1 - PCV) 02/15/2014 Zoster Vaccines (1 of 2) 02/15/2014 COVID-19 Vaccine ( - 2023-2 5 season) 2024 Influenza Vaccine (Season Ended) 2025 03/04/2016, 09/15/2015 RSV Patients and Patients Aged 60 [...] patient's age to complete this topic Meningococcal B Vaccine Aged Out No l onger eligible based on patient's age to complete [...]
--- OUTSIDE RECORDS SUMMARY | 2025-01-10 13:42 | XMS_ITS | Clinical Summary ---
Author Organization [address] [place] [address] Address [address] [place] [address] Phone Care Team Providers Care Senior Investment Manager Name Role Phone Lillian Álvarez MD Primary Care Provider Allergies No known active allergies Medications omeprazole (PriLOSEC) [address] capsule Take 1 capsule (20 mg total) by mouth 1 (one) time each day. 11/22/19 25 Active tiZANidine (ZANAFLEX) 4 mg tablet Take by mouth. 12/25/19 25 Active loperamide (IMODIUM) 2 mg capsule Take 1 capsule (2 mg total) by mouth. 12/18/19 25 Active Ventolin HFA 90 mcg/actuation inhaler INAHLE 2 PUFFS EVERY 6 HOURS NEEDED FOR SHORTNESS OF BREATH OR WHEEZING 11/27/19 25 Active azithromycin (ZITHROMAX) 500 mg tablet Take 1 tablet (500 mg total) by mouth 1 (one) time each day. 12/18/19 25 Active gabapentin (NEURONTIN) 100 mg capsule 1-3 tablets at bed at night 90 capsule 3 12/28/19 25 Active gabapentin (NEURONTIN) 300 mg capsule Take 1 capsule (300 mg total) by mouth at bedtime. 12/25/19 25 025 Discontinued Encounters Date Type Department Care Team Description 12/27/2024 9:00 AM EDT Consult [facility] [address] [place] [phone] Sonya Montes MD Neuropathic pain (Primary Dx); Multiple sclerosis (CMS/HCC V24, CMS/HCC V28); Spasticity from Last 3 Months Social History Tobacco Use Types Packs/Day Years Used Date Smoking Tobacco: Never Assessed Comments Unknown Sex and Gender Information Value Date Recorded Sex Assigned at Not on file Legal Sex Female 2:22 PM EDT Gender Identity Not on file Sexual Orientation Not on file Last Filed Vital Signs Vital Sign Reading Time Taken Comments Blood Pressure 117/79 12/27/2024 9:15 AM EDT Pulse 90 12/27/2024 9:15 AM EDT Temperature - - Respiratory Rate - - Oxygen Saturation 98% 12/27/2024 9:15 AM EDT Inhaled Oxygen Concentration - - Weight 59 kg (130 lb) 12/27/2024 9:15 AM EDT Height 154.9 cm (5' 1 ) 12/27/2024 9:15 AM EDT Body Mass Index 24.56 12/27/2024 9:15 AM EDT Plan of Treatment Upcoming Encounters Date Type Department Care Team (Late st Contact Info) Description 03/31/2025 1:30 PM EDT Office Visit [facility] [address] [place] [phone] Sonya Montes MD [address] [place] [phone] Health Maintenance Due Date Last Done Comments Breast Cancer Screening 1965 DTaP,Tdap,and Td Vaccines (1 - Tdap) 02/15/1983 Cervical Cancer Screening: P ap Smear 02/15/1985 Pneumococcal Vaccine: 50+ Years (1 of 1 - PCV) 02/15/2014 Zoster Vaccines (1 of 2) 02/15/2014 COVID-19 Vaccine (2023-2 5 season) 2024 Colorectal Cancer Screening: Colonoscopy 12/24/2024 Depression Screening 12/24/2024 HIV Screening 12/24/2024 Hepatitis C Screening 12/24/2024 Social Influencers of Health Screening 12/24/2024 Influenza Vaccine (Season Ended) 2025 03/04/2016, 09/15/2015 RSV Immunization Adult Patients (1 - 1-dose 75+ series) 02/15/2039 HIB [...] on patient's age to complete this topic MMR Vaccines Aged Out No longer eligi ble based on patient's age to complete this topic Meningococcal ACWY Vaccine Aged Out N o longer eligible based on patient's age to complete this topic Meningococcal B Vaccine Aged Out No l onger eligible based on patient's age to complete this topic Pneumococcal Vaccine: Pediatrics (0 to 5 Years) and At-Risk Patients (6 to 64 Years) Aged Out No longer eligible b ased on patient's age to complete this topic RSV Immunization Patients Under 20 months Aged Out No longer eligible b ased on patient's age to complete this topic Varicella Vaccines Aged Out No longer eligible based on patient's age to complete this topic Procedures Procedure Name Priority Date/Time Associated Diagnosis Comments CBC WITH AUTO DIFFERENTIAL Routine 12/27/2024 10:27 AM EDT Multiple sclerosis ([facility] V24, [facility] V28) VITAMIN B12 Routine 12/27/2024 10:27 AM EDT Multiple sclerosis ([facility] V24, [facility] V28) VITAMIN D 25 HYDROXY Routine 12/27/2024 10:27 AM EDT Multiple sclerosis ([facility] V24, [facility] V28) CREATININE, SERUM Routine 12/27/2024 10: 27 AM EDT Multiple sclerosis ([facility] V24, [facility] V28) BUN Routine 12/27/2024 10:27 AM EDT Multiple sclerosis ([facility] V24, [facility] V28) CBC AND DIFFERENTIAL Routine 12/27/2024 10:27 AM EDT Multiple sclerosis ([facility] V24, [facility] V28) BORRELIA BURGDORFERI ANTIBODY Routine 12/27/2024 10:27 AM EDT Multiple sclerosis ([facility] V24, [facility] V28) HEPATIC FUNCTION PANEL Routine 12/27/2024 10:27 AM EDT Multiple sclerosis ([facility]/HCC V24, CMS/HCC V28) VARICELLA ZOSTER ANTIBODY IGG Routine 12/27/2024 10:27 AM EDT Multiple sclerosis ([facility]/HCC V24, CMS/HCC V28) LILLIAN IFA WITH TITER AND PATTERN Routine 12/27/2024 10:27 AM EDT Multiple sclerosis ([facility]/HCC V24, CMS/HCC V28) RHEUMATOID FACTOR Routine 12/27/2024 10: 27 AM EDT Multiple sclerosis ([facility] V24, [facility] V28) SJOGRENS ANTIBODIES, SSA AND SSB Routine 12/27/2024 10:27 AM EDT Multiple sclerosis ([facility] V24, [facility]/HCC V28) JCV POLYOMA VIRUS ANTIBODY WITH REFLEX TO INHIBITION ASSAY Routine 12/27/2024 10:27 AM EDT Multiple sclerosis ([facility] V24, [facility] V28) from Last 3 Months Results * (ABNORMAL) JCV polyoma virus antibody with reflex to inhibition assay (12/27/2024 10:27 AM EDT) Index Value 0.85 12/31/2024 10:05 AM EDT [facility] JCV Antibody Positive( A) 12/31/2024 10:05 AM EDT [facility] Comment: Index interpretive criteria: <0.20 negative 0.20-0.40 indeterminate >0.40 positive Interpretation Note 12/31/2024 10:05 AM EDT [facility] Comment: INTERPRETATION Negative: Antibodies to JCV not detected. Indeterminate: Low level reactivity detected, see Inhibition Assay result below for the final antibody result. Positive: Antibodies to SAM virus (JCV) detected indicating the patient has been exposed to JCV at an undetermined time. The STRATIFY JCV(R) DxSelect(TM) Antibody Test is an enzyme-linked immunosorbent assay (CYRUS) designed to detect JCV antibodies to help identify individuals who have been exposed to the virus. Samples with low level reactivity in the detection assay are retested in a confirmation (inhibition) assay to confirm presence or absense of JCV-specific antibodies. Retrospective analyses of post marketing data from various sources, including observational studies and spontaneous reports obtained worldwide, suggest that the risk of developing PML may be associated with relative levels of serum anti-JCV antibody as measured by anti-JCV antibody index. (1) (1) TYSABRI(natalizumab)US Prescribing Information Interpretation Note 12/31/2024 10:05 AM EDT [facility] Comment: Positive: Antibodies to SAM virus (JCV) detected indicating the patient has been exposed to JCV at an undetermined time Negative: Antibodies to JCV not detected Blood Venous blood specimen / Unknown Venipuncture / Unknown 12/27/2024 10:27 AM EDT 12/27/2024 10:27 AM EDT Narrative [facility] - 12/31/2024 10:05 AM EDT Performed at: [facility] [employer] [facility] [address] [place], [place] [id number] Concrete Paving Supervisor: Corinne Proctor MD, Phone: [phone] Sonya Montes MD LAB BLOOD ORDERABLES Fin al Result [facility] * Sjogrens antibodies, SSA and SSB (12/27/2024 10:27 AM EDT) Sjogren's SS-A (Ro) Ab Quant 1 <20 units LAB CHEMISTRY METHOD 01/02/2025 10:[address] [facility] Sjogren's SS-A (Ro) Ab Negative Negative LAB CHEMISTRY METHOD 01/02/2025 10:[address] [facility] Sjogren's SS-B (La) Ab Quant 4 <20 units LAB CHEMISTRY METHOD 01/02/2025 10:[address] [facility] Sjogren's SS-B (La) Ab Negative Negative LAB CHEMISTRY METHOD 01/02/2025 10:[address] [facility] Blood Venous blood specimen / Unknown Venipuncture / Unknown 12/27/2024 10:27 AM EDT 12/27/2024 10:27 AM EDT us Sonya Montes MD LAB BLOOD ORDERABLES Fin al Result Performing Organization Address City/[facility]/ZIP Co de Phone Number [facility] [address] [place] [address], [place] [phone] * LILLIAN IFA with titer and pattern (12/27/2024 10:27 AM EDT) Pathologist [facility] LILLIAN Negative Negative 12/28/2024 1:[address] [facility] Blood Venous blood specimen / Unknown Venipuncture / Unknown 12/27/2024 10:27 AM EDT 12/27/2024 10:27 AM EDT us Sonya Montes MD LAB BLOOD ORDERABLES Fin al Result Performing Organization Address City/[facility]/ZIP Co de Phone Number [facility] [address] [place] [address], [place] [phone] * (ABNORMAL) CBC auto differential (12/27/2024 10:27 AM EDT) Pathologist [facility] WBC 7.8 4.8 - 10.8 K/mcL LAB HEMETOLOGY METHOD 12/27/2024 2:[address] [facility] RBC 5.00(H) 3.80 - 4.80 M/mcL LAB HEMETOLOGY METHOD 12/27/2024 2:[address] [facility] Hemoglobin 14.1 11.5 - 16.0 g/dL LAB HEMETOLOGY METHOD 12/27/2024 2:[address] [facility] Hematocrit 44.4 35.0 - 47.0 % LAB HEMETOLOGY [facility] MCV 89.3 79.0 - 98.0 FL LAB HEMETOLOGY METHOD [facility] MCH 28.4 27.0 - 32.0 pcg LAB HEMETOLOGY METHOD 12/27/2024 2:02 PM [facility] MCHC 31.8(L) 32.0 - 37.0 g/dL LAB HEMETOLOGY METHOD 12/27/2024 2:02 PM [facility] RDW 14.0 11.0 - 15.0 % LAB HEMETOLOGY METHOD 12/27/2024 2:02 PM [facility] Platelets 349 130 - 400 K/mcL LAB HEMETOLOGY METHOD 12/27/2024 2:02 PM [facility] MPV 10.7 7.0 - 11.0 FL LAB HEMETOLOGY METHOD 12/27/2024 2:02 PM [facility] NRBC 0.0 <1.0 % LAB HEMETOLOGY METHOD 12/27/2024 2:02 PM [facility] NRBC Absolute 0.00 <0.10 K/mcL LAB HEMETOLOGY METHOD 12/27/2024 2:02 PM [facility] Neutrophils Relative 69.0 % LAB HEMETOLOGY METHOD 12/27/2024 2:02 PM [facility] Lymphocytes Relative 23.4 % LAB HEMETOLOGY METHOD 12/27/2024 2:02 PM [facility] Monocytes Relative 4.6 % LAB HEMETOLOGY METHOD 12/27/2024 2:02 PM [facility] Eosinophils Relative 1.9 % LAB HEMETOLOGY METHOD 12/27/2024 2:02 PM [facility] Basophils Relative 0.8 % LAB HEMETOLOGY METHOD 12/27/2024 2:[address] [facility] Immature Granulocytes Relative 0.3 % LAB HEMETOLOGY METHOD 12/27/2024 2:[address] [facility] Neutrophils Absolute 5.40 1.50 - 7.00 K/mcL LAB HEMETOLOGY METHOD 12/27/2024 2:[address] [facility] Lymphocytes Absolute 1.83 1.00 - 5.00 K/mcL LAB HEMETOLOGY METHOD 12/27/2024 2:[address] [facility] Monocytes Absolute 0.36 0.20 - 1.00 K/mcL LAB HEMETOLOGY METHOD 12/27/2024 2:[address] [facility] Eosinophils Absolute 0.15 0.00 - 0.50 K/mcL LAB HEMETOLOGY METHOD 12/27/2024 2:[address] [facility] Basophils Absolute 0.06 0.00 - 0.20 K/mcL LAB HEMETOLOGY METHOD 12/27/2024 2:[address] [facility] Immature Granulocytes Absolute 0.02 0.00 - 0.03 K/mcL LAB HEMETOLOGY METHOD 12/27/2024 2:[address] [facility] Blood Venous blood specimen / Unknown Venipuncture / Unknown 12/27/2024 10:27 AM EDT 12/27/2024 10:27 AM EDT us Sonya Montes MD LAB BLOOD ORDERABLES Fin al Result [facility] [address] [place] [address], * Borrelia burgdorferi antibody (12/27/2024 10:27 AM EDT) Pathologist [facility] Lyme Ab Negative Negative LAB CHEMISTRY METHOD 12/27/2024 2:[address] [facility] Comment: No laboratory evidence of infection with B. burgdorferi (Lyme disease). Negative results may occur in patients recently infected (<=14 days) with B. burgdorferi. If recent infection is suspected, repeat testing on a new sample collected in 7- 14 days is recommended. Blood Venous blood specimen / Unknown Venipuncture / Unknown 12/27/2024 10:27 AM EDT 12/27/2024 10:27 AM EDT Sonya Montes MD LAB BLOOD ORDERABLES Fin al Result Performing Organization Address [facility]/ZIP Co de Phone Number [facility] [address] [place] [address], * Creatinine (12/27/2024 10:27 AM EDT) Creatinine 0.75 0.50 - 1.10 mg/dL LAB CHEMISTRY METHOD 12/27/2024 3:[address] [facility] eGFR 91 >=60 mL/min/1. 73m2 LAB CHEMISTRY METHOD 12/27/2024 3:[address] [facility] Comment:Calculation based on the Chronic Kidney Disease Epidemiology Collaboration (CKD-EPI) equation refit without adjustment for race. Blood Venous blood specimen / Unknown Venipuncture / Unknown 12/27/2024 10:27 AM EDT 12/27/2024 10:27 AM EDT Sonya Montes MD LAB BLOOD ORDERABLES Fin al Result Performing Organization Address [facility]/State/ZIP Co de Phone Number [facility] [address] [place] [address], * (ABNORMAL) Vitamin D 25 hydroxy (12/27/2024 10:27 AM EDT) Vit D, 25-Hydroxy 28.7(L) 30.0 - 80.0 ng/mL LAB CHEMISTRY METHOD 12/27/2024 5:[address] [facility] Blood Venous blood specimen / Unknown Venipuncture / Unknown 12/27/2024 10:27 AM EDT 12/27/2024 10:27 AM EDT us Sonya Montes MD LAB BLOOD ORDERABLES Fin al Result Performing Organization Address [facility]/ZIP Co de Phone Number [facility] [address] [place] [address], [place] [phone] * Rheumatoid factor (12/27/2024 10:27 AM EDT) Rheumatoid Factor <10.0 <15.0 I Unit/mL LAB CHEMISTRY METHOD 12/27/2024 3:[address] [facility] Blood Venous blood specimen / Unknown Venipuncture / Unknown 12/27/2024 10:27 AM EDT 12/27/2024 10:27 AM EDT us Sonya Montes MD LAB BLOOD ORDERABLES Fin al Result Performing Organization Address [facility] de Phone Number [facility] [address] [place] [address], [place] [phone] * Varicella zoster antibody IgG (12/27/2024 10:27 AM EDT) Varicella IgG Positive Positive LAB CHEMISTRY METHOD 12/27/2024 2:[address] [facility] Varicella Zoster IgG 10.10 >=1.00 S/CO LAB CHEMISTRY METHOD 12/27/2024 2:[address] [facility] Blood Venous blood specimen / Unknown Venipuncture / Unknown 12/27/2024 10:27 AM EDT 12/27/2024 10:[address] [facility] - 12/27/2024 2:17 PM EDT Interpretation >= 1.00 S/CO is considered to be consistent with Immunity us Sonya Montes MD LAB BLOOD ORDERABLES Fin al Result Performing Organization Address [facility] de Phone Number [facility] [address] [place] [address], [place] [phone] * BUN (12/27/2024 10:27 AM EDT) [facility] BUN 15 5 - 25 mg/dL LAB CHEMISTRY METHOD 12/27/2024 3:[address] [facility] Blood Venous blood specimen / Unknown Venipuncture / Unknown 12/27/2024 10:27 AM EDT 12/27/2024 10:27 AM EDT us Sonya Montes MD LAB BLOOD ORDERABLES Fin al Result Performing Organization Address [facility] de Phone Number [facility] [address] [place] [address], [place] [phone] * (ABNORMAL) Vitamin B12 (12/27/2024 10:27 AM EDT) [facility] Vitamin B-12 940(H) 250 - 900 pcg/mL LAB CHEMISTRY METHOD 12/27/2024 3:[address] [facility] Blood Venous blood specimen / Unknown Venipuncture / Unknown 12/27/2024 10:27 AM EDT 12/27/2024 10:27 AM EDT us Sonya Montes MD LAB BLOOD ORDERABLES Fin al Result Performing Organization Address [facility] de Phone Number [facility] [address] [place] [address], [place] [phone] * Hepatic function panel (12/27/2024 10:27 AM EDT) [facility] Total Protein 7.2 6.0 - 8.0 g/dL LAB CHEMISTRY METHOD 12/27/2024 3:[address] [facility] Albumin 3.7 3.2 - 5.0 g/dL LAB CHEMISTRY METHOD 12/27/2024 3:[address] [facility] Total Bilirubin 0.4 0.0 - 1.4 mg/dL LAB CHEMISTRY METHOD 12/27/2024 3:[address] [facility] Bilirubin, Direct 0.1 0.0 - 0.3 mg/dL LAB CHEMISTRY METHOD 12/27/2024 3:[address] [facility] Bilirubin, Indirect 0.3 0.0 - 1.1 mg/dL LAB CHEMISTRY METHOD 12/27/2024 3:50 PM [facility] ALT (SGPT) 57 10 - 60 unit/L LAB CHEMISTRY METHOD 12/27/2024 3:50 PM [facility] AST (SGOT) 23 10 - 42 unit/L LAB CHEMISTRY METHOD 12/27/2024 3:50 PM [facility] Alkaline Phosphatase 118 42 - 121 unit/L LAB CHEMISTRY METHOD 12/27/2024 3:50 PM [facility] Blood Venous blood specimen / Unknown Venipuncture / Unknown 12/27/2024 10:27 AM EDT 12/27/2024 10:27 AM EDT us Sonya Montes MD LAB BLOOD ORDERABLES Fin al Result [facility] [address] [place] [address], from Last 3 Months Insurance [facility] Member Subscriber Plan / Payer (Ef fective 2024-Present) Name:HOWARD LILLIAN Relation to Subscriber:Self Name:Lillian Howard Payer ID:[id number] Group ID:[id number] Type:Not on file Address: [place] [address] [address] [id number] Care Teams Senior Investment Manager Relationship Specialty Start Date End Date Lillian Álvarez MD [address] [place] [address] PCP - General Internal Medicine 12/23/24
[2025-01-10] MEDS: gadobutroL 7.5 ML VIAL IVPUSH (14:41)
== END 2025-01-10 13:07 | disposition home or self-care (01) ==
LOC: HO.MRI 13:06
PROVIDERS: PCP Internal Medicine; Visit Provider Psychiatry & Neurology Neurology
DX: G35 Multiple sclerosis (principal)
CPT/HCPCS: 70553; 72158; A9585

== ENCOUNTER 2025-02-22 14:56 | Outpatient (AMB) | payer OTHER, SELFPAY ==
--- NOTE | 2025-02-22 14:59 | A.OFFVIS_ITS ---
Vital Signs 02/22/25 15:01 Height 5 ft 2 in Weight 145 lb 4 oz BMI 26.6 BP 122/74 Blood Pressure Location Rt brachial Position Sitting Pulse 80 Pulse Source Pulse Oximeter Pulse Oximetry (%) 98 Oxygen Delivery Method Room Air Intake Visit Reasons: 2 mo follow up Intake Note: Follow up care Industrial Waste Treatment Technician Required: Yes Industrial Waste Treatment Technician Name: iPad Accompanied by: Self / Same As Patient Allergies tramadol Allergy (Intermediate, Verified 02/22/25 15:01) headaches HPI Comments Details: 60y/o Right handed female comes for follow up of Multiple Sclerosis . she was started on Vumerity 231 mg bid as she stopped Aubagio due to hair loss. MRI Brain and LS spine was reviewed and there were no new MS lesions. LS spine showed multilevel spndylosis with canal stenosis. History form last visit- 01/05she has increased tingling in lower extremities she was recently admitted for colitis. she stopped teroflunamide 7 mg qd after her last visit due to hair fall. she was diagnosed with MS in 2018 - when she had numbness and tinglining in her forehead , face - MRI showed some lesions c/w MS. she is a poor historian and farfan snot recall being on any medications .s he recalls seeing Dr. Sánchez few years ago. she has had series of MRI since then - her last wa sin 2022 - c/w MS. SHe denies loss of vision double vision, weakness, numbness, gait problems , vertigo, speech issues ,weakness etc. she denies any memory issues. she has urinary urgency , no retention or constipation or incontinence. [facility] Medical History Empty sella Axillary lump Lesion of frontal lobe of brain Right shoulder pain Tachycardia Neck pain Numbness Insomnia GERD (gastroesophageal reflux disease) Dyslipidemia Polyarthralgia Multiple sclerosis Hyperlipemia Surgical History History of colonoscopy Hx of tubal ligation Family History Father Hypertension Mother Diabetes mellitus Breast cancer Maternal Grandmother Breast cancer Social History Household Members: Children Housing: Apartment Do you presently have visiting nurse or other home services: No Alcohol intake: never Patient Tobacco Use Status: Never used Tobacco e-Cigarette/Vaping Use: Never Used Second Hand Smoke Exposure: No service: No Current occupational status: disabled Cognitive needs: No Hearing needs: No Vision needs: No Physical Exam Vital Signs: Last Vital Signs Pulse 80 02/22/25 15:01 BP 122/74 02/22/25 15:01 Pulse Ox 98 02/22/25 15:01 Oxygen Delivery Method Room Air 02/22/25 15:01 BMI result Body Mass Index 26.6 Const General: cooperative, healthy appearing, comfortable and no acute distress Nutritional Appearance: average body habitus Orientation/consciousness: patient oriented x3 Eyes Pupils: Equal, round and reactive pupils present Neuro General: patient oriented x3, gait normal, tone normal, moves all extremities and no focal motor deficits Cranial nerves: Yes Facial sensation intact/muscles of mastication intact, Yes Equal, round and reactive pupils present, Yes Bilaterally intact EOM present, Yes Nystagmus not present, Yes Normal facial strength present, Yes Midline tongue present, Yes Symmetric palate elevation present and Yes Ability to bilaterally elevate shoulders present Cognition (Neuro): normal cognition Gait exam (Neuro): Normal gait present Motor exam (neuro): 5/5 motor strength present throughout and Normal motor muscle tone present throughout Deep tendon reflexes (DTR's): Right triceps reflex intensity grade: 2+, Left triceps reflex intensity grade: 2+, Rt Biceps (C5, C6): 2+, Left biceps reflex intensity grade: 2+, Right brachioradialis reflex intensity grade: 2+, Left brachioradialis reflex intensity grade: 2+, Right patellar reflex intensity grade: 2+ and Left patellar reflex intensity grade: 2+ Coordination: [id number] test normal and [id number] test normal Results Reviewed Results Reviewed: MRI LS spine- 12/2024 No abnormal enhancement. No acute fracture or gross listhesis. Levoconvex curvature apex at L1-2 and multilevel spondylosis resulting in central spinal canal and bilateral neuroforamina narrowing at L2-3 and to a lesser extent L4-5. MRI Brain - 12/2024 Nonenhancing or restricted diffusion demyelinating plaques, supratentorial compartment with similar morphology pattern and distribution. No acute stroke. MRI C spine 03/2024 Numerous nonenhancing cord T2 hyperintense lesions consistent with MS plaques as discussed above. Largest is at C2-3 dorsal column, and left lateral column spanning T2-T3 levels. No enhancing lesions or T1 hypointense lesions. No cord thinning or impingement. 2. Mild cervical spondylosis. No significant central canal or neural foraminal narrowing. 3. Additional ancillary findings as discussed in the body of the report. Assessment & Plan Assessment & Plan (1) Multiple sclerosis: Code(s): G35 - Multiple sclerosis Category: Medical Plan Reviewed MRI brain with karon a MRI LS spine F/U [facility] center for further management Continue vumerity 231 mg bid Coding Level of Care Code Est Pt Level 4 (83995) Complex EM visit Add On G2211 Diagnoses Multiple sclerosis G35
[2025-02-22 15:01] VITALS: BP 122/74; PULSE 80; O2SAT 98; BMI 26.6
--- OUTSIDE RECORDS SUMMARY | 2025-02-22 15:47 | XMS_ITS | Clinical Summary ---
Author Organization [employer] Address [address] [place] [address] Care Team Providers Care Auto Service Instructor Name Role Phone Unavailable Primary Care Provider [...] 2023-2 5 season) 2024 Influenza Vaccine (#1) 2025 6, 09/15/2015 RSV Patients and Patients Aged 60 [...]
--- OUTSIDE RECORDS SUMMARY | 2025-02-22 15:47 | XMS_ITS | Clinical Summary ---
Author Organization [address] [place] [address] Address [address] [place] [address] Phone Care Team Providers Care Quality Assurance Name Role Phone Lillian Álvarez MD Primary Care Provider [phone] Allergies No known active allergies Medications omeprazole (PriLOSEC) [address] capsule Take 1 capsule (20 mg total) by mouth 1 (one) time each day. 5 Active tiZANidine (ZANAFLEX) 4 mg tablet Take by mouth. 5 Active loperamide (IMODIUM) 2 mg capsule Take 1 capsule (2 mg total) by mouth. 5 Active Ventolin HFA 90 mcg/actuation inhaler INAHLE 2 PUFFS EVERY 6 HOURS NEEDED FOR SHORTNESS OF BREATH OR WHEEZING 5 Active azithromycin (ZITHROMAX) 500 mg tablet Take 1 tablet (500 mg total) by mouth 1 (one) time each day. 5 Active gabapentin (NEURONTIN) 100 mg capsule 1-3 tablets at bed at night 90 capsule 3 5 Active Encounters Date Type Department Care Team Description 12/27/2024 9:00 AM EDT Consult [facility] [address] [place] [phone] Sonya Montes MD Neuropathic pain (Primary [...] Description 03/31/2025 1:30 PM EDT Office Visit [facility] [address] [place] [address] Sonya Montes MD [address] [place] [address] Health Maintenance Due Date Last Done Comments Breast Cancer Screening 1965 DTaP,Tdap,and Td Vaccines (1 - Tdap) 02/15/1983 Cervical Cancer Screening: P ap Smear 02/15/1985 Pneumococcal Vaccine: 50+ Years (1 of 1 - PCV) 02/15/2014 Zoster Vaccines (1 of 2) 02/15/2014 COVID-19 Vaccine (1 - 2023-2 5 season) 2024 Depression Screening 07/14/2024 Colorectal Cancer Screening: Colonoscopy 12/24/2024 HIV Screening 12/24/2024 Hepatitis C Screening 12/24/2024 Social Influencers of Health Screening 12/24/2024 Influenza Vaccine (#1) 2025 6, 09/15/2015 RSV Immunization Adult Patients (1 - [...] Routine 12/27/2024 10:27 AM EDT Multiple sclerosis [place] [place], [facility] V28) VITAMIN B12 Routine 12/27/2024 10:27 AM EDT Multiple sclerosis ([facility] [place]24, [facility] V28) VITAMIN D 25 HYDROXY Routine 12/27/2024 10:27 AM EDT Multiple sclerosis ([facility] [place]24, [facility] V28) CREATININE, SERUM Routine 12/27/2024 10: 27 AM EDT Multiple sclerosis ([facility] [place]24, [facility] V28) BUN Routine 12/27/2024 10:27 AM EDT Multiple sclerosis ([facility] [place], [facility] V28) CBC AND DIFFERENTIAL Routine 12/27/2024 10:27 AM EDT Multiple sclerosis ([facility] [place], [facility] V28) BORRELIA BURGDORFERI ANTIBODY Routine 12/27/2024 10:27 AM EDT Multiple sclerosis ([facility] [place], [facility] V28) HEPATIC FUNCTION PANEL Routine 12/27/2024 10:27 AM EDT Multiple sclerosis ([facility] [place], [facility] V28) VARICELLA ZOSTER ANTIBODY IGG Routine 12/27/2024 10:27 AM EDT Multiple sclerosis (CMS/HCC V24, CMS/HCC V28) LILLIAN IFA WITH TITER AND PATTERN Routine 12/27/2024 10:27 AM EDT Multiple sclerosis (CMS/HCC V24, CMS/HCC V28) RHEUMATOID FACTOR Routine 12/27/2024 10: 27 AM EDT Multiple sclerosis (CMS/HCC V24, CMS/HCC V28) SJOGRENS ANTIBODIES, SSA AND SSB Routine 12/27/2024 10:27 AM EDT Multiple sclerosis (CMS/HCC V24, CMS/HCC V28) JCV POLYOMA VIRUS ANTIBODY WITH REFLEX TO INHIBITION ASSAY Routine 12/27/2024 10:27 AM EDT Multiple sclerosis (CMS/HCC V24, CMS/HCC V28) from Last 3 Months Results * (ABNORMAL) JCV polyoma virus antibody with reflex to inhibition assay (12/27/2024 10:27 AM EDT) [facility] Index Value 0.85 12/31/2024 10:05 AM EDT [...] - 12/31/2024 10:05 AM EDT Performed at: 01 - [facility] [address] [place] [id number] Health Record Technician: Corinne Proctor MD, Phone: [phone] Sonya Montes MD LAB BLOOD ORDERABLES Fin al Result [facility] * Sjogrens antibodies, SSA and SSB (12/27/2024 10:27 AM EDT) Sjogren's SS-A (Ro) Ab Quant 1 <20 units LAB CHEMISTRY METHOD 01/02/2025 10:44 AM EDT [facility] Sjogren's SS-A (Ro) Ab Negative Negative LAB CHEMISTRY METHOD 01/02/2025 10:44 AM EDT [facility] Sjogren's SS-B (La) Ab Quant 4 <20 units LAB CHEMISTRY METHOD 01/02/2025 10:44 AM EDT [facility] Sjogren's SS-B (La) Ab Negative Negative LAB CHEMISTRY METHOD 01/02/2025 10:44 AM EDT [facility] Blood Venous blood specimen / Unknown Venipuncture / Unknown 12/27/2024 10:27 AM EDT 12/27/2024 10:27 AM EDT Sonya Montes MD LAB BLOOD ORDERABLES Fin al Result [facility] [address] [place] [address], [place] [phone] * LILLIAN IFA with titer and pattern (12/27/2024 10:27 AM EDT) [facility] LILLIAN Negative Negative 12/28/2024 1:56 PM EDT [facility] Blood Venous blood specimen / Unknown Venipuncture / Unknown 12/27/2024 10:27 AM EDT 12/27/2024 10:27 AM EDT Sonya Montes MD LAB BLOOD ORDERABLES Fin al Result Performing Organization Address [facility]/ZIP Co de Phone Number [facility] [address] [place] [address], [place] [phone] * (ABNORMAL) CBC auto differential (12/27/2024 10:27 AM EDT) [facility] WBC 7.8 4.8 - 10.8 K/mcL LAB HEMETOLOGY METHOD 12/27/2024 2:[address] [facility] RBC 5.00(H) 3.80 - 4.80 M/mcL LAB HEMETOLOGY METHOD 12/27/2024 2:[address] [facility] Hemoglobin 14.1 11.5 - 16.0 g/dL LAB HEMETOLOGY METHOD 12/27/2024 2:[address] [facility] Hematocrit 44.4 35.0 - 47.0 % LAB HEMETOLOGY METHOD 12/27/2024 2:[address] [facility] MCV 89.3 79.0 - 98.0 FL LAB HEMETOLOGY METHOD 12/27/2024 2:[address] [facility] MCH 28.4 27.0 - 32.0 pcg LAB HEMETOLOGY METHOD 12/27/2024 2:[address] [facility] MCHC 31.8(L) 32.0 - 37.0 g/dL LAB HEMETOLOGY METHOD 12/27/2024 2:[address] [facility] RDW 14.0 11.0 - 15.0 % LAB HEMETOLOGY METHOD 12/27/2024 2:[address] [facility] Platelets 349 130 - 400 K/mcL LAB HEMETOLOGY METHOD 12/27/2024 2:[address] [facility] MPV 10.7 7.0 - 11.0 FL LAB HEMETOLOGY METHOD 12/27/2024 2:[address] [facility] NRBC 0.0 <1.0 % LAB HEMETOLOGY METHOD 12/27/2024 2:[address] [facility] NRBC Absolute 0.00 <0.10 K/mcL LAB HEMETOLOGY METHOD 12/27/2024 2:[address] [facility] Neutrophils Relative 69.0 % LAB HEMETOLOGY METHOD 12/27/2024 2:02 [facility] Lymphocytes Relative 23.4 % LAB HEMETOLOGY METHOD 12/27/2024 2:[address] [facility] Monocytes Relative 4.6 % LAB HEMETOLOGY METHOD 12/27/2024 2:[address] [facility] Eosinophils Relative 1.9 % LAB HEMETOLOGY METHOD 12/27/2024 2:[address] [facility] Basophils Relative 0.8 % LAB HEMETOLOGY METHOD 12/27/2024 2:[address] [facility] Immature Granulocytes Relative 0.3 % LAB HEMETOLOGY METHOD 12/27/2024 2:[address] [facility] Neutrophils Absolute 5.40 1.50 - 7.00 K/mcL LAB HEMETOLOGY METHOD 12/27/2024 2:02 PM EDT [facility] Lymphocytes Absolute 1.83 1.00 - 5.00 K/mcL LAB HEMETOLOGY METHOD 12/27/2024 2:02 PM EDT [facility] Monocytes Absolute 0.36 0.20 - 1.00 K/mcL LAB HEMETOLOGY METHOD 12/27/2024 2:02 PM EDT [facility] Eosinophils Absolute 0.15 0.00 - 0.50 K/mcL LAB HEMETOLOGY METHOD 12/27/2024 2:02 PM EDT [facility] Basophils Absolute 0.06 0.00 - 0.20 K/mcL LAB HEMETOLOGY METHOD 12/27/2024 2:02 PM EDT [facility] Immature Granulocytes Absolute 0.02 0.00 - 0.03 K/[facility] LAB HEMETOLOGY METHOD 12/27/2024 2:02 PM EDT [facility] Blood Venous blood specimen / Unknown Venipuncture / Unknown 12/27/2024 10:27 AM EDT 12/27/2024 10:27 AM EDT Sonya Montes MD LAB BLOOD ORDERABLES Fin al Result [facility] [address] [place] [address], * Borrelia burgdorferi antibody (12/27/2024 10:27 AM EDT) [facility] Lyme Ab Negative Negative LAB CHEMISTRY METHOD 12/27/2024 2:25 PM EDT [facility] Comment: No laboratory evidence of [...] ORDERABLES Fin al Result Performing Organization Address [facility] de Phone Number [facility] [address] [place] [address], * Creatinine (12/27/2024 10:27 AM EDT) Creatinine 0.75 0.50 - 1.10 mg/dL LAB CHEMISTRY METHOD 12/27/2024 3:22 PM EDT [facility] eGFR 91 >=60 mL/min/1. 73m2 LAB CHEMISTRY METHOD 12/27/2024 3:22 PM EDT [facility] Comment:Calculation based on the Chronic Kidney Disease Epidemiology Collaboration (CKD-EPI) equation refit without adjustment for race. Blood Venous blood specimen / Unknown Venipuncture / Unknown 12/27/2024 10:27 AM EDT 12/27/2024 10:27 AM EDT Sonya Montes MD LAB BLOOD ORDERABLES Fin al Result Performing Organization Address [facility] de Phone Number [facility] [address] [place] [address], * (ABNORMAL) Vitamin D 25 hydroxy (12/27/2024 10:27 AM EDT) Vit D, 25-Hydroxy 28.7(L) 30.0 - 80.0 ng/mL LAB CHEMISTRY METHOD 12/27/2024 5:07 PM EDT [facility] Blood Venous blood specimen / Unknown Venipuncture / Unknown 12/27/2024 10:27 AM EDT 12/27/2024 10:27 AM EDT Sonya Montes MD LAB BLOOD ORDERABLES Fin al Result Performing Organization Address City/[facility]/ZIP Co de Phone Number [facility] [address] [place] [address], [place] [phone] * Rheumatoid factor (12/27/2024 10:27 AM EDT) Rheumatoid Factor <10.0 <15.0 I Unit/mL LAB CHEMISTRY METHOD 12/27/2024 3:50 PM EDT [facility] Blood Venous blood specimen / Unknown Venipuncture / Unknown 12/27/2024 10:27 AM EDT 12/27/2024 10:27 AM EDT us Sonya Montes MD LAB BLOOD ORDERABLES Fin al Result Performing Organization Address [facility] Co de Phone Number [facility] [address] [place] [address], [place] [phone] * Varicella zoster antibody IgG (12/27/2024 10:27 AM EDT) Varicella IgG Positive Positive LAB CHEMISTRY METHOD 12/27/2024 2:17 PM EDT [facility] Varicella Zoster IgG 10.10 >=1.00 S/CO LAB CHEMISTRY METHOD 12/27/2024 2:17 PM EDT [facility] Blood Venous blood specimen / Unknown Venipuncture / Unknown 12/27/2024 10:27 AM EDT 12/27/2024 10:27 AM EDT Narrative [facility] - 12/27/2024 2:17 PM EDT Interpretation >= 1.00 S/CO is considered to be consistent with Immunity us Sonya Montes MD LAB BLOOD ORDERABLES Fin al Result Performing Organization Address City/[facility]/ZIP Co de Phone Number [facility] [address] [place] [address], [place] [phone] * BUN (12/27/2024 10:27 AM EDT) Pathologist [facility] BUN 15 5 - 25 mg/dL LAB CHEMISTRY METHOD 12/27/2024 3:22 PM EDT [facility] Blood Venous blood specimen / Unknown Venipuncture / Unknown 12/27/2024 10:27 AM EDT 12/27/2024 10:27 AM EDT us Sonya Montes MD LAB BLOOD ORDERABLES Fin al Result Performing Organization Address City/[facility]/ZIP Co de Phone Number [facility] [address] [place] [address], [place] [phone] * (ABNORMAL) Vitamin B12 (12/27/2024 10:27 AM EDT) [facility] Vitamin B-12 940(H) 250 - 900 pcg/mL LAB CHEMISTRY METHOD 12/27/2024 3:50 PM EDT [facility] Blood Venous blood specimen / Unknown Venipuncture / Unknown 12/27/2024 10:27 AM EDT 12/27/2024 10:27 AM EDT us Sonya Montes MD LAB BLOOD ORDERABLES Fin al Result [facility] [address] [place] [address], [place] [phone] * Hepatic function panel (12/27/2024 10:27 AM EDT) Pathologist [facility] Total Protein 7.2 6.0 - 8.0 g/dL LAB CHEMISTRY METHOD 12/27/2024 3:50 PM EDT [facility] Albumin 3.7 3.2 - 5.0 g/dL LAB CHEMISTRY METHOD 12/27/2024 3:50 PM EDT [facility] Total Bilirubin 0.4 0.0 - 1.4 mg/dL LAB CHEMISTRY METHOD 12/27/2024 3:50 PM EDT [facility] Bilirubin, Direct 0.1 0.0 - 0.3 mg/dL LAB CHEMISTRY METHOD 12/27/2024 3:50 PM EDT [facility] Bilirubin, Indirect 0.3 0.0 - 1.1 mg/dL LAB CHEMISTRY METHOD 12/27/2024 3:50 PM EDT [facility] ALT (SGPT) 57 10 - 60 unit/L LAB CHEMISTRY METHOD 12/27/2024 3:50 PM EDT [facility] AST (SGOT) 23 10 - 42 unit/L LAB CHEMISTRY METHOD 12/27/2024 3:50 PM EDT [facility] Alkaline Phosphatase 118 42 - 121 unit/L LAB CHEMISTRY METHOD 12/27/2024 3:50 PM EDT [facility] Blood Venous blood specimen / Unknown Venipuncture / Unknown 12/27/2024 10:27 AM EDT 12/27/2024 10:27 AM EDT Sonya Montes MD LAB BLOOD ORDERABLES Fin al Result [facility] [address] [place] [address], from Last [address] [facility] Member Subscriber Plan / Payer (Ef fective 2024-Present) Name:LILLIAN HOWARD Relation to Subscriber:Self Name:Lillian Howard Payer ID:[id number] Group ID:[id number] Type:Not on file Address: [address] [place] [id number] Care Teams Quality Assurance Relationship Specialty Start Date End Date Lillian Álvarez MD [address] [place] [phone] PCP - General Internal Medicine 12/23/24
== END 2025-02-22 15:46 | disposition home or self-care (01) ==
LOC: HO.HSMS 14:56
PROVIDERS: PCP Internal Medicine; Visit Provider Psychiatry & Neurology Neurology
DX: G35 Multiple sclerosis (principal)
CPT/HCPCS: 99214; G2211

== ENCOUNTER → 2025-02-22 14:56 | Outpatient (BNVA) | payer OTHER, SELFPAY | PROVIDERS: PCP Internal Medicine; Visit Provider Psychiatry & Neurology Neurology | DX: G35 Multiple sclerosis (principal) | CPT/HCPCS: 99212 ==

== ENCOUNTER 2025-02-23 10:32 | Outpatient (REF) | payer OTHER, SELFPAY ==
--- NOTE | ~2025-02-23 | MM_ITS ---
EXAMINATION: MM DIAGNOSTIC DIGITAL BREAST TOMOSYNTHESIS, LEFT CLINICAL INFORMATION: 6 month follow-up for left breast grouped calcifications in the upper outer quadrant with associated focal asymmetry. Stereotactic biopsy was recommended in August 2024 however patient prefers six-month follow-up. COMPARISON: Mammography: Priors on PACS. TECHNIQUE: Digital breast tomosynthesis is performed in both the craniocaudal and mediolateral oblique views along with computer-aided detection (CAD). Synthesized 2D images are generated from the tomosynthesis. FINDINGS: There are scattered areas of fibroglandular density (ACR BI-RADS breast composition Category b). Grouped amorphous calcifications in the upper outer quadrant with associated focal asymmetry are slightly increased from priors. There is a marker clip anterior to this area from previous benign needle core biopsy and 2018. No suspicious other abnormal findings. MM/MM tomosynthesis diagnostic LT IMPRESSION: Grouped amorphous calcifications in the upper outer quadrant slightly increased from prior recommended for stereotactic core needle biopsy. The findings and recommendations were discussed with the patient the procedure will be scheduled. ASSESSMENT: BI-RADS BI-RADS 4 - Suspicious finding RECOMMENDATION: Biopsy recommended Results were provided to the patient at time of visit by the technologist. This patient's information was entered into a reminder system with a target due date for their next mammogram. Electronically signed by: Violeta Ruby DO 02/23/2025 11:15 AM EDT
--- OUTSIDE RECORDS SUMMARY | 2025-02-23 11:20 | XMS_ITS | Clinical Summary ---
Author Organization [address] [place] [address] Address [address] [place] [address] Phone Care Team Providers Care Server Engineer Name Role Phone Lillian Álvarez MD Primary Care Provider [phone] Allergies No known active allergies Medications omeprazole [...] Team Description 12/27/2024 9:00 AM EDT Consult [facility] [address] [facility] [address] [place] [address] Sonya Montes MD Neuropathic pain (Primary [...] Description 03/31/2025 1:30 PM EDT Office Visit [facility] [address] [facility] [address] [place] [address] Sonya Montes MD [address] [place] [address] Health Maintenance Due Date Last [...] Routine 12/27/2024 10:27 AM EDT Multiple sclerosis ([facility] V24, [facility] V28) VITAMIN B12 Routine 12/27/2024 10:27 AM EDT Multiple sclerosis ([facility] V24, [facility] V28) VITAMIN D 25 HYDROXY Routine 12/27/2024 10:27 AM EDT Multiple sclerosis ([facility] V24, [facility] V28) CREATININE, SERUM Routine 12/27/2024 10: 27 AM EDT Multiple sclerosis ([facility] V24, [facility] V28) BUN Routine 12/27/2024 10:27 AM EDT Multiple sclerosis ([facility] V24, [facility] V28) CBC AND DIFFERENTIAL Routine 12/27/2024 10:27 AM EDT Multiple sclerosis ([facility] V24, [facility] V28) BORRELIA BURGDORFERI ANTIBODY Routine 12/27/2024 10:27 AM EDT Multiple sclerosis ([facility] V24, [facility] V28) HEPATIC FUNCTION PANEL Routine 12/27/2024 10:27 AM EDT Multiple sclerosis ([facility] V24, [facility] V28) VARICELLA ZOSTER ANTIBODY IGG Routine 12/27/2024 [...] to inhibition assay (12/27/2024 10:27 AM EDT) [facility] Index Value 0.85 12/31/2024 10:05 AM EDT [...] 10:05 AM EDT Performed at: 01 - [facility] [address] [place] [id number] Wardrobe Mistress: Corinne Proctor MD, Phone: [phone] Sonya Montes MD LAB BLOOD ORDERABLES Fin al Result [facility] * Sjogrens antibodies, SSA and SSB (12/27/2024 10:27 AM EDT) Sjogren's SS-A (Ro) Ab Quant 1 <20 units LAB CHEMISTRY METHOD 01/02/2025 10:44 AM EDT [facility] Sjogren's SS-A (Ro) Ab Negative Negative LAB CHEMISTRY METHOD 01/02/2025 10:44 AM EDT [facility] Sjogren's SS-B (La) Ab Quant 4 <20 units LAB CHEMISTRY METHOD 01/02/2025 10:44 AM EDT [facility] Sjogren's SS-B (La) Ab Negative Negative LAB CHEMISTRY METHOD 01/02/2025 10:44 AM EDT [facility] Blood Venous blood specimen / Unknown Venipuncture / Unknown 12/27/2024 10:27 AM EDT 12/27/2024 10:27 AM EDT Sonya Montes MD LAB BLOOD ORDERABLES Fin al Result [facility] [address] [place] [address], [place] [phone] * LILLIAN IFA with titer and pattern (12/27/2024 10:27 AM EDT) [facility] LILLIAN Negative Negative 12/28/2024 1:56 PM EDT [facility] Blood Venous blood specimen / Unknown Venipuncture / Unknown 12/27/2024 10:27 AM EDT 12/27/2024 10:27 AM EDT Sonya Montes MD LAB BLOOD ORDERABLES Fin al Result Performing Organization Address [facility]/ZIP Co de Phone Number [facility] [address] [place] [address], [place] [phone] * (ABNORMAL) CBC auto differential (12/27/2024 10:27 AM EDT) [facility] WBC 7.8 4.8 - 10.8 K/mcL LAB HEMETOLOGY METHOD 12/27/2024 2:02 PM [facility] RBC 5.00(H) 3.80 - 4.80 M/mcL LAB HEMETOLOGY METHOD 12/27/2024 2:02 PM [facility] Hemoglobin 14.1 11.5 - 16.0 g/dL LAB HEMETOLOGY METHOD 12/27/2024 2:02 PM [facility] Hematocrit 44.4 35.0 - 47.0 % LAB HEMETOLOGY METHOD 12/27/2024 2:02 PM [facility] MCV 89.3 79.0 - 98.0 FL LAB HEMETOLOGY METHOD 12/27/2024 2:02 PM [facility] MCH 28.4 27.0 - 32.0 pcg LAB HEMETOLOGY METHOD 12/27/2024 2:02 PM [facility] MCHC 31.8(L) 32.0 - 37.0 g/dL LAB HEMETOLOGY METHOD 12/27/2024 2:02 PM [facility] RDW 14.0 11.0 - 15.0 % LAB HEMETOLOGY METHOD 12/27/2024 2:02 PM [facility] Platelets 349 130 - 400 K/mcL LAB HEMETOLOGY METHOD 12/27/2024 2:02 PM [facility] MPV 10.7 7.0 - 11.0 FL LAB HEMETOLOGY METHOD 12/27/2024 2:02 PM [facility] NRBC 0.0 <1.0 % LAB HEMETOLOGY METHOD 12/27/2024 2:02 PM [facility] NRBC Absolute 0.00 <0.10 K/mcL LAB HEMETOLOGY METHOD 12/27/2024 2:02 PM [facility] Neutrophils Relative 69.0 % LAB HEMETOLOGY METHOD 12/27/2024 2:02 [facility] Lymphocytes Relative 23.4 % LAB HEMETOLOGY METHOD 12/27/2024 2:02 PM [facility] Monocytes Relative 4.6 % LAB HEMETOLOGY METHOD 12/27/2024 2:02 PM [facility] Eosinophils Relative 1.9 % LAB HEMETOLOGY METHOD 12/27/2024 2:02 PM [facility] Basophils Relative 0.8 % LAB HEMETOLOGY METHOD 12/27/2024 2:02 PM [facility] Immature Granulocytes Relative 0.3 % LAB HEMETOLOGY METHOD 12/27/2024 2:02 PM [facility] Neutrophils Absolute 5.40 1.50 - 7.00 K/mcL LAB HEMETOLOGY METHOD 12/27/2024 2:02 PM EDT [facility] Lymphocytes Absolute 1.83 1.00 - 5.00 K/mcL LAB HEMETOLOGY METHOD 12/27/2024 2:02 PM EDT [facility] Monocytes Absolute 0.36 0.20 - 1.00 K/mcL LAB HEMETOLOGY METHOD 12/27/2024 2:02 PM EDT [facility] Eosinophils Absolute 0.15 0.00 - 0.50 K/mcL LAB HEMETOLOGY METHOD 12/27/2024 2:02 PM EDT [facility] Basophils Absolute 0.06 0.00 - 0.20 K/mcL LAB HEMETOLOGY METHOD 12/27/2024 2:02 PM EDT [facility] Immature Granulocytes Absolute 0.02 0.00 - 0.03 K/[facility] LAB HEMETOLOGY METHOD 12/27/2024 2:02 PM EDT [facility] Blood Venous blood specimen / Unknown Venipuncture / Unknown 12/27/2024 10:27 AM EDT 12/27/2024 10:27 AM EDT Sonya Montes MD LAB BLOOD ORDERABLES Fin al Result [facility] [address] [place] [address], * Borrelia burgdorferi antibody (12/27/2024 10:27 AM EDT) [facility] Lyme Ab Negative Negative LAB CHEMISTRY METHOD 12/27/2024 2:25 PM EDT [facility] Comment: No laboratory evidence of [...] ORDERABLES Fin al Result Performing Organization Address [facility] de Phone Number [facility] [address] [place] [address], * Creatinine (12/27/2024 10:27 AM EDT) Creatinine 0.75 0.50 - 1.10 mg/dL LAB CHEMISTRY METHOD 12/27/2024 3:22 PM EDT [facility] eGFR 91 >=60 mL/min/1. 73m2 LAB CHEMISTRY METHOD 12/27/2024 3:22 PM EDT [facility] Comment:Calculation based on the Chronic Kidney Disease Epidemiology Collaboration (CKD-EPI) equation refit without adjustment for race. Blood Venous blood specimen / Unknown Venipuncture / Unknown 12/27/2024 10:27 AM EDT 12/27/2024 10:27 AM EDT Sonya Montes MD LAB BLOOD ORDERABLES Fin al Result Performing Organization Address [facility] de Phone Number [facility] [address] [place] [address], * (ABNORMAL) Vitamin D 25 hydroxy (12/27/2024 10:27 AM EDT) Vit D, 25-Hydroxy 28.7(L) 30.0 - 80.0 ng/mL LAB CHEMISTRY METHOD 12/27/2024 5:07 PM EDT [facility] Blood Venous blood specimen / Unknown Venipuncture / Unknown 12/27/2024 10:27 AM EDT 12/27/2024 10:27 AM EDT Sonya Montes MD LAB BLOOD ORDERABLES Fin al Result Performing Organization Address City/[facility]/ZIP Co de Phone Number [facility] [address] [place] [address], [place] [phone] * Rheumatoid factor (12/27/2024 10:27 AM EDT) Rheumatoid Factor <10.0 <15.0 I Unit/mL LAB CHEMISTRY METHOD 12/27/2024 3:50 PM EDT [facility] Blood Venous blood specimen / Unknown Venipuncture / Unknown 12/27/2024 10:27 AM EDT 12/27/2024 10:27 AM EDT us Sonya Montes MD LAB BLOOD ORDERABLES Fin al Result Performing Organization Address [facility] Co de Phone Number [facility] [address] [place] [address], [place] [phone] * Varicella zoster antibody IgG (12/27/2024 10:27 AM EDT) Varicella IgG Positive Positive LAB CHEMISTRY METHOD 12/27/2024 2:17 PM EDT [facility] Varicella Zoster IgG 10.10 >=1.00 S/CO LAB CHEMISTRY METHOD 12/27/2024 2:17 PM EDT [facility] Blood Venous blood specimen / Unknown Venipuncture / Unknown 12/27/2024 10:27 AM EDT 12/27/2024 10:27 AM EDT Narrative [facility] - 12/27/2024 2:17 PM EDT Interpretation >= 1.00 S/CO is considered to be consistent with Immunity us Sonya Montes MD LAB BLOOD ORDERABLES Fin al Result Performing Organization Address City/[facility]/ZIP Co de Phone Number [facility] [address] [place] [address], [place] [phone] * BUN (12/27/2024 10:27 AM EDT) Pathologist [facility] BUN 15 5 - 25 mg/dL LAB CHEMISTRY METHOD 12/27/2024 3:22 PM EDT [facility] Blood Venous blood specimen / Unknown Venipuncture / Unknown 12/27/2024 10:27 AM EDT 12/27/2024 10:27 AM EDT us Sonya Montes MD LAB BLOOD ORDERABLES Fin al Result Performing Organization Address City/[facility]/ZIP Co de Phone Number [facility] [address] [place] [address], [place] [phone] * (ABNORMAL) Vitamin B12 (12/27/2024 10:27 AM EDT) [facility] Vitamin B-12 940(H) 250 - 900 pcg/mL LAB CHEMISTRY METHOD 12/27/2024 3:50 PM EDT [facility] Blood Venous blood specimen / Unknown Venipuncture / Unknown 12/27/2024 10:27 AM EDT 12/27/2024 10:27 AM EDT us Sonya Montes MD LAB BLOOD ORDERABLES Fin al Result [facility] [address] [place] [address], [place] [phone] * Hepatic function panel (12/27/2024 10:27 AM EDT) Pathologist [facility] Total Protein 7.2 6.0 - 8.0 g/dL LAB CHEMISTRY METHOD 12/27/2024 3:50 PM EDT [facility] Albumin 3.7 3.2 - 5.0 g/dL LAB CHEMISTRY METHOD 12/27/2024 3:50 PM EDT [facility] Total Bilirubin 0.4 0.0 - 1.4 mg/dL LAB CHEMISTRY METHOD 12/27/2024 3:50 PM EDT [facility] Bilirubin, Direct 0.1 0.0 - 0.3 mg/dL LAB CHEMISTRY METHOD 12/27/2024 3:50 PM EDT [facility] Bilirubin, Indirect 0.3 0.0 - 1.1 mg/dL LAB CHEMISTRY METHOD 12/27/2024 3:50 PM EDT [facility] ALT (SGPT) 57 10 - 60 unit/L LAB CHEMISTRY METHOD 12/27/2024 3:50 PM EDT [facility] AST (SGOT) 23 10 - 42 unit/L LAB CHEMISTRY METHOD 12/27/2024 3:50 PM EDT [facility] Alkaline Phosphatase 118 42 - 121 unit/L LAB CHEMISTRY METHOD 12/27/2024 3:50 PM EDT [facility] Blood Venous blood specimen / Unknown Venipuncture / Unknown 12/27/2024 10:27 AM EDT 12/27/2024 10:27 AM EDT Sonya Montes MD LAB BLOOD ORDERABLES Fin al Result [facility] [address] [place] [address], from Last 3 Months Insurance [facility] Member Subscriber Plan / Payer (Ef fective 2024-Present) Name:LILLIAN HOWARD Relation to Subscriber:Self Name:Lillian Howard Payer ID:[id number] Group ID:[id number] Type:Not on file Address: [address] [place] [phone] Care Teams Server Engineer Relationship Specialty Start Date End Date Lillian Álvarez MD [address] [place] [address] PCP - General Internal Medicine 12/23/24
--- OUTSIDE RECORDS SUMMARY | 2025-02-23 11:20 | XMS_ITS | Clinical Summary ---
Author Organization [employer] Address [address] [facility] [address] [place] [address] Care Team Providers Care Bacteriologist Dairy Name Role Phone Unavailable Primary Care Provider [...]
== END 2025-02-23 10:33 | disposition home or self-care (01) ==
LOC: HO.MAMMO 10:32
PROVIDERS: PCP Internal Medicine; Visit Provider Internal Medicine
DX: R92.1 Mammographic calcification found on diagnostic imaging of breast (principal)
CPT/HCPCS: 77061; 77065

== ENCOUNTER → 2025-02-23 11:00 | Outpatient (BNV) | payer OTHER, SELFPAY | PROVIDERS: PCP Internal Medicine; Visit Provider Internal Medicine | DX: R92.1 Mammographic calcification found on diagnostic imaging of breast (principal); R92.8 Other abnormal and inconclusive findings on diagnostic imaging of breast | CPT/HCPCS: 77065; G0279 ==

== ENCOUNTER 2025-03-01 08:34 | Outpatient (AMB) | payer OTHER, SELFPAY ==
--- NOTE | 2025-03-01 08:35 | MHC.OFFVIS ---
Vital Signs 03/01/25 08:42 Height 5 ft 2 in Weight 146 lb BMI 26.7 BP 152/75 H Blood Pressure Location Rt brachial Position Sitting Pulse 65 Intake Visit Reasons: Lft Breast calcification biopsy Intake Note: Patient is seen in office for biopsy CONSULT, following for left breast calcifications. Pt c/o: denies breast lumps, nipple discharge. Mother and maternal grandmother hx of breast CA. Bx Sched: TODAY @ 9am [facility] Aisle Cashier Required: Yes [facility] A[facility] Cashier Services: [facility] Cashier Present (Meagan # [id number]) Center Aisle Cashier Name: Meagan # [id number] Accompanied by: Self / Same As Patient Allergies tramadol Allergy (Intermediate, Verified 03/01/25 08:40) headaches Medication List - Last Reconciled 03/01/25 by Narciso Mar MD diroximel fumarate (Vumerity) 231 mg PO BID 60 days gabapentin 300 mg PO BEDTIME 90 days ibuprofen 800 mg PO TID PRN 30 days loperamide (Imodium A-D) 2 mg PO Q4H PRN omeprazole 20 mg PO DAILY@0630 Shower Chair As directed Ventolin HFA 90 mcg/actuation (albuterol sulfate) 2 puffs inhalation Q6H PRN 30 days NS HPI Comments Details: 60-year-old female patient presenting with a recent six-month follow-up mammogram of the left breast which revealed grouped amorphous calcifications in the upper outer quadrant slightly increased from the prior study therefore stereotactic guided core biopsy was recommended. She previously underwent a biopsy in the left breast in 2018 which was benign. She denies any current breast symptoms of pain, redness, discharge or palpable mass. Her family history is significant for her mother developing breast cancer in her 50s and a maternal grandmother with breast cancer as well. She is unaware of any genetic testing in the past. Her menarche was at 13. She is in her 1st child was born when she was 22 years old. Her last menstrual period was approximately 10 years ago when she was 49. She denies hormone replacement therapy. [facility] Medical History Empty sella Axillary lump Lesion of frontal lobe of brain Right shoulder pain Tachycardia Neck pain Numbness Insomnia GERD (gastroesophageal reflux disease) Dyslipidemia Polyarthralgia Multiple sclerosis Hyperlipemia Surgical History History of colonoscopy Hx of tubal ligation Family History Father Hypertension Mother Diabetes mellitus Breast cancer Maternal Grandmother Breast cancer Social History Household Members: Children Housing: Apartment Do you presently have visiting nurse or other home services: No Alcohol intake: never Patient Tobacco Use Status: Never used Tobacco e-Cigarette/Vaping Use: Never Used Second Hand Smoke Exposure: No service: No Current occupational status: disabled Cognitive needs: No Hearing needs: No Vision needs: No Review of Systems Const All systems reviewed & are unremarkable except as noted in HPI and below Denies chills, Denies fever(s), Denies headache(s), Denies poor appetite and Denies weakness ENT Denies headache(s) Card Denies chest pain, Denies irregular heart rhythm, Denies palpitations and Denies dyspnea Resp Denies cough, Denies excessive phlegm production and Denies dyspnea GI Denies abdominal pain, Denies bloating, Denies change in bowel habits, Denies constipation, Denies heartburn, Denies diarrhea, Denies nausea and Denies vomiting Denies urinary frequency and Denies nipple discharge Musc Denies back pain, Denies muscle weakness and Denies numbness Skin/Breast Denies breast swelling, Denies breast skin changes, Denies breast pain, Denies breast mass, Denies changing lesions, Denies nipple discharge and Denies unusual bruising Neuro Denies headache(s), Denies numbness, Denies paresthesias and Denies weakness Psych Denies anxiety and Denies depression Endo Denies palpitations Gordo/Lymph Denies lymphadenopathy Physical Exam Const General: cooperative and no acute distress Nutritional Appearance: well nourished Orientation/consciousness: patient oriented x3 Limitations: no limitations HEENT Head: Yes normocephalic and Yes atraumatic Ears: hearing grossly normal bilaterally Chest Other: Left breast: No skin change, no nipple retraction, no nipple discharge, slight thickening noted in the 12:00 to 1 o'clock position but no discrete mass appreciated, no enlarged lymph nodes. Right breast: No skin change, no nipple retraction, no nipple discharge, no palpable mass, no enlarged lymph nodes Chest/axillae images:  1. Area of slight thickening left breast Resp Effort & Inspection: normal respiratory effort, no audible wheezes, no cough and no respiratory distress Cardio Jugular venous distension: no JVD GI Inspection: Yes normal to inspection Skin Other: Warm, dry, no rash Neuro General: patient oriented x3 Extrem General: Yes no clubbing, cyanosis or edema Assessment & Plan Assessment & Plan (1) Abnormal mammogram of left breast: Code(s): R92.8 - Other abnormal and inconclusive findings on diagnostic imaging of breast Category: Medical Plan 60-year-old female patient presenting with a recent mammogram which revealed increased amorphous calcifications in the left breast in the upper outer quadrant increased from her prior study and felt to be suspicious for malignancy (BI-RADS 4). On examination there was an area of slight thickening in the upper outer quadrant which may correspond to the area of suspicion of the mammogram. No other palpable mass, skin change, nipple discharge or enlarged lymph nodes are appreciated. She is scheduled for a stereotactic guided core biopsy of the left breast later today at [facility]. I recommended follow-up examination and review of the pathology results in 1 week. She expressed understanding and agrees with the plan. Orders: Orders MM stereotactic biopsy LT Today R92.8 - Other abnormal and inconclusive findings on diagnostic imaging of breast Coding Level of Care Code New Pt Level 4 (19024) Diagnoses Abnormal mammogram of left breast R92.8
[2025-03-01 08:42] VITALS: BP 152/75; PULSE 65; BMI 26.7
--- OUTSIDE RECORDS SUMMARY | 2025-03-01 09:17 | XMS_ITS | Clinical Summary ---
Author Organization [employer] Address [address] [place] [address] [address] [place] [address] Care Team Providers Care Wet Room Supervisor Name Role Phone Unavailable Primary Care Provider [...]
--- OUTSIDE RECORDS SUMMARY | 2025-03-01 09:17 | XMS_ITS | Patient Health Record ---
Author Organization [facility] Address [address] [place] [address] Care Team Providers Care Mass Spectroscopist Name Role Phone Lillian Bolden Primary Care Provider Unavailab José Victoria Jr Unavailable Reason For Referral No Information Problems Problem Type SNOMED Code ICD Code Onset Dates Problem Status W/U Status Risk Notes Problem [id number] Elevated liver function tests (R94.5) Active confirmed Plan Of Treatment Pending Test Test Name Order Date LIVER PROFILE 09/02/2019 Future Test Test Name Order Date COLONOSCOPY 08/03/2014 Next Appt Details Provider Name:José summers Jr, 04/18/2025 01:15:00 PM, [address], [address], [place], [address], Insurance Providers Payer Name Payer Address Payer Phone Subscriber Number Group Number Insured Name Patient Relationship to Insured Coverage Start Date Coverage End Date [facility] [address] Attn Claims [place] [id number] LILLIAN SCHAEFER Self - patient is the insured Medical (General) History Medical History History ICD Code elevated Cholesterol colonoscopy 05/2014, followup do well Surgical History Surgery Date(Month/Year) tubal ligation
--- OUTSIDE RECORDS SUMMARY | 2025-03-01 09:17 | XMS_ITS | Clinical Summary ---
Author Organization [address] [place] [address] Address [address] [place] [address] Phone Care Team Providers Care Catheter Builder Name Role Phone Lillian Álvarez MD Primary Care Provider [phone] Allergies No known active allergies Medications omeprazole [...] Team Description 12/27/2024 9:00 AM EDT Consult [facility] [address] [facility] [address] [place] [phone] Sonya Montes MD Neuropathic pain (Primary [...] Description 03/31/2025 1:30 PM EDT Office Visit [facility] [address] [place] [address] Sonya Montes MD [address] [place] [address] Health Maintenance Due Date Last [...] Routine 12/27/2024 10:27 AM EDT Multiple sclerosis ([facility] V24, [facility] V28) VITAMIN B12 Routine 12/27/2024 10:27 AM EDT Multiple sclerosis ([facility] V24, [facility] V28) VITAMIN D 25 HYDROXY Routine 12/27/2024 10:27 AM EDT Multiple sclerosis ([facility] V24, [facility] V28) CREATININE, SERUM Routine 12/27/2024 10: 27 AM EDT Multiple sclerosis ([facility] V24, [facility] V28) BUN Routine 12/27/2024 10:27 AM EDT Multiple sclerosis ([facility] V24, [facility] V28) CBC AND DIFFERENTIAL Routine 12/27/2024 10:27 AM EDT Multiple sclerosis ([facility] V24, [facility] V28) BORRELIA BURGDORFERI ANTIBODY Routine 12/27/2024 10:27 AM EDT Multiple sclerosis ([facility] V24, [facility] V28) HEPATIC FUNCTION PANEL Routine 12/27/2024 10:27 AM EDT Multiple sclerosis ([facility] V24, [facility] V28) VARICELLA ZOSTER ANTIBODY IGG Routine 12/27/2024 [...] to inhibition assay (12/27/2024 10:27 AM EDT) [facility] Index Value 0.85 12/31/2024 10:05 AM EDT [...] 10:05 AM EDT Performed at: 01 - [facility] [address] [place] [id number] Chip Separator: Corinne Proctor MD, Phone: [phone] Sonya Montes MD LAB BLOOD ORDERABLES Fin al Result [facility] * Sjogrens antibodies, SSA and SSB (12/27/2024 10:27 AM EDT) Sjogren's SS-A (Ro) Ab Quant 1 <20 units LAB CHEMISTRY METHOD 01/02/2025 10:[address] [facility] Sjogren's SS-A (Ro) Ab Negative Negative LAB CHEMISTRY METHOD 01/02/2025 10:[address] [facility] Sjogren's SS-B (La) Ab Quant 4 <20 units LAB CHEMISTRY METHOD 01/02/2025 10:[address] [facility] Sjogren's SS-B (La) Ab Negative Negative LAB CHEMISTRY METHOD 01/02/2025 10:[address] [facility] Blood Venous blood specimen / Unknown Venipuncture / Unknown 12/27/2024 10:27 AM EDT 12/27/2024 10:27 AM EDT Sonya Montes MD LAB BLOOD ORDERABLES Fin al Result [facility] [address] [place] [address], [place] [phone] * LILLIAN IFA with titer and pattern (12/27/2024 10:27 AM EDT) [facility] LILLIAN Negative Negative 12/28/2024 1:[address] [facility] Blood Venous blood specimen / Unknown Venipuncture / Unknown 12/27/2024 10:27 AM EDT 12/27/2024 10:27 AM EDT Sonya Montes MD LAB BLOOD ORDERABLES Fin al Result Performing Organization Address [facility]/ZIP Co de Phone Number [facility] [address] [place] [address], [place] [phone] * (ABNORMAL) CBC auto differential (12/27/2024 10:27 AM EDT) [facility] WBC 7.8 4.8 - 10.8 K/mcL LAB HEMETOLOGY METHOD 12/27/2024 2:02 PM [facility] RBC 5.00(H) 3.80 - 4.80 M/mcL LAB HEMETOLOGY METHOD 12/27/2024 2:02 PM [facility] Hemoglobin 14.1 11.5 - 16.0 g/dL LAB HEMETOLOGY METHOD 12/27/2024 2:02 PM [facility] Hematocrit 44.4 35.0 - 47.0 % LAB HEMETOLOGY METHOD 12/27/2024 2:02 PM [facility] MCV 89.3 79.0 - 98.0 FL LAB HEMETOLOGY METHOD 12/27/2024 2:02 PM [facility] MCH 28.4 27.0 - 32.0 pcg LAB HEMETOLOGY METHOD 12/27/2024 2:02 PM [facility] MCHC 31.8(L) 32.0 - 37.0 g/dL LAB HEMETOLOGY METHOD 12/27/2024 2:02 PM [facility] RDW 14.0 11.0 - 15.0 % LAB HEMETOLOGY METHOD 12/27/2024 2:02 PM [facility] Platelets 349 130 - 400 K/mcL LAB HEMETOLOGY METHOD 12/27/2024 2:02 PM [facility] MPV 10.7 7.0 - 11.0 FL LAB HEMETOLOGY METHOD 12/27/2024 2:02 PM [facility] NRBC 0.0 <1.0 % LAB HEMETOLOGY METHOD 12/27/2024 2:02 PM [facility] NRBC Absolute 0.00 <0.10 K/mcL LAB HEMETOLOGY METHOD 12/27/2024 2:02 PM [facility] Neutrophils Relative 69.0 % LAB HEMETOLOGY METHOD 12/27/2024 2:02 [facility] Lymphocytes Relative 23.4 % LAB HEMETOLOGY METHOD 12/27/2024 2:02 PM [facility] Monocytes Relative 4.6 % LAB HEMETOLOGY METHOD 12/27/2024 2:02 PM [facility] Eosinophils Relative 1.9 % LAB HEMETOLOGY METHOD 12/27/2024 2:02 PM [facility] Basophils Relative 0.8 % LAB HEMETOLOGY METHOD 12/27/2024 2:02 PM [facility] Immature Granulocytes Relative 0.3 % LAB HEMETOLOGY METHOD 12/27/2024 2:02 PM [facility] Neutrophils Absolute 5.40 1.50 - 7.00 K/mcL LAB HEMETOLOGY METHOD 12/27/2024 2:[address] [facility] Lymphocytes Absolute 1.83 1.00 - 5.00 K/mcL LAB HEMETOLOGY METHOD 12/27/2024 2:[address] [facility] Monocytes Absolute 0.36 0.20 - 1.00 K/mcL LAB HEMETOLOGY METHOD 12/27/2024 2:[address] [facility] Eosinophils Absolute 0.15 0.00 - 0.50 K/mcL LAB HEMETOLOGY METHOD 12/27/2024 2:[address] [facility] Basophils Absolute 0.06 0.00 - 0.20 K/mcL LAB HEMETOLOGY METHOD 12/27/2024 2:[address] [facility] Immature Granulocytes Absolute 0.02 0.00 - 0.03 K/[facility] LAB HEMETOLOGY METHOD 12/27/2024 2:[address] [facility] Blood Venous blood specimen / Unknown Venipuncture / Unknown 12/27/2024 10:27 AM EDT 12/27/2024 10:27 AM EDT Sonya Montes MD LAB BLOOD ORDERABLES Fin al Result [facility] [address] [place] [address], * Borrelia burgdorferi antibody (12/27/2024 10:27 AM EDT) [facility] Lyme Ab Negative Negative LAB CHEMISTRY METHOD 12/27/2024 2:[address] [facility] Comment: No laboratory evidence of [...] ORDERABLES Fin al Result Performing Organization Address [facility] de Phone Number [facility] [address] [place] [address], * Creatinine (12/27/2024 10:27 AM EDT) Creatinine 0.75 0.50 - 1.10 mg/dL LAB CHEMISTRY METHOD 12/27/2024 3:[address] [facility] eGFR 91 >=60 mL/min/1. 73m2 LAB CHEMISTRY METHOD 12/27/2024 3:[address] [facility] Comment:Calculation based on the Chronic Kidney Disease Epidemiology Collaboration (CKD-EPI) equation refit without adjustment for race. Blood Venous blood specimen / Unknown Venipuncture / Unknown 12/27/2024 10:27 AM EDT 12/27/2024 10:27 AM EDT Sonya Montes MD LAB BLOOD ORDERABLES Fin al Result Performing Organization Address [facility] de Phone Number [facility] [address] [place] [address], * (ABNORMAL) Vitamin D 25 hydroxy (12/27/2024 10:27 AM EDT) Vit D, 25-Hydroxy 28.7(L) 30.0 - 80.0 ng/mL LAB CHEMISTRY METHOD 12/27/2024 5:[address] [facility] Blood Venous blood specimen / Unknown Venipuncture / Unknown 12/27/2024 10:27 AM EDT 12/27/2024 10:27 AM EDT Sonya Montes MD LAB BLOOD ORDERABLES Fin al Result Performing Organization Address City/[facility]/ZIP Co de Phone Number [facility] [address] [place] [address], [place] [phone] * Rheumatoid factor (12/27/2024 10:27 AM EDT) Rheumatoid Factor <10.0 <15.0 I Unit/mL LAB CHEMISTRY METHOD 12/27/2024 3:[address] [facility] Blood Venous blood specimen / Unknown Venipuncture / Unknown 12/27/2024 10:27 AM EDT 12/27/2024 10:27 AM EDT us Sonya Montes MD LAB BLOOD ORDERABLES Fin al Result Performing Organization Address [facility] Co de Phone Number [facility] [address] [place] [address], [place] [phone] * Varicella zoster antibody IgG (12/27/2024 10:27 AM EDT) Varicella IgG Positive Positive LAB CHEMISTRY METHOD 12/27/2024 2:[address] [facility] Varicella Zoster IgG 10.10 >=1.00 S/CO LAB CHEMISTRY METHOD 12/27/2024 2:[address] [facility] Blood Venous blood specimen / Unknown Venipuncture / Unknown 12/27/2024 10:27 AM EDT 12/27/2024 10:[address] [facility] - 12/27/2024 2:17 PM EDT Interpretation >= 1.00 S/CO is considered to be consistent with Immunity us Sonya Montes MD LAB BLOOD ORDERABLES Fin al Result Performing Organization Address City/[facility]/ZIP Co de Phone Number [facility] [address] [place] [address], [place] [phone] * BUN (12/27/2024 10:27 AM EDT) Pathologist [facility] BUN 15 5 - 25 mg/dL LAB CHEMISTRY METHOD 12/27/2024 3:[address] [facility] Blood Venous blood specimen / Unknown Venipuncture / Unknown 12/27/2024 10:27 AM EDT 12/27/2024 10:27 AM EDT us Sonya Montes MD LAB BLOOD ORDERABLES Fin al Result Performing Organization Address City/[facility]/ZIP Co de Phone Number [facility] [address] [place] [address], [place] [phone] * (ABNORMAL) Vitamin B12 (12/27/2024 10:27 AM EDT) [facility] Vitamin B-12 940(H) 250 - 900 pcg/mL LAB CHEMISTRY METHOD 12/27/2024 3:[address] [facility] Blood Venous blood specimen / Unknown Venipuncture / Unknown 12/27/2024 10:27 AM EDT 12/27/2024 10:27 AM EDT us Sonya Montes MD LAB BLOOD ORDERABLES Fin al Result [facility] [address] [place] [address], [place] [phone] * Hepatic function panel (12/27/2024 10:27 AM EDT) Pathologist [facility] Total Protein 7.2 6.0 - 8.0 g/dL LAB CHEMISTRY METHOD 12/27/2024 3:[address] [facility] Albumin 3.7 3.2 - 5.0 g/dL LAB CHEMISTRY METHOD 12/27/2024 3:[address] [facility] Total Bilirubin 0.4 0.0 - 1.4 mg/dL LAB CHEMISTRY METHOD 12/27/2024 3:[address] [facility] Bilirubin, Direct 0.1 0.0 - 0.3 mg/dL LAB CHEMISTRY METHOD 12/27/2024 3:[address] [facility] Bilirubin, Indirect 0.3 0.0 - 1.1 mg/dL LAB CHEMISTRY METHOD 12/27/2024 3:[address] [facility] ALT (SGPT) 57 10 - 60 unit/L LAB CHEMISTRY METHOD 12/27/2024 3:[address] [facility] AST (SGOT) 23 10 - 42 unit/L LAB CHEMISTRY METHOD 12/27/2024 3:[address] [facility] Alkaline Phosphatase 118 42 - 121 unit/L LAB CHEMISTRY METHOD 12/27/2024 3:[address] [facility] Blood Venous blood specimen / Unknown Venipuncture / Unknown 12/27/2024 10:27 AM EDT 12/27/2024 10:27 AM EDT Sonya Montes MD LAB BLOOD ORDERABLES Fin al Result [facility] [address] [place] [address], from Last 3 Months Insurance [facility] Member Subscriber Plan / Payer (Ef fective 2024-Present) Name:LILLIAN HOWARD Relation to Subscriber:Self Name:Lillian Howard Payer ID:[id number] Group ID:[id number] Type:Not on file Address: [address] [place] [phone] Care Teams Catheter Builder Relationship Specialty Start Date End Date Lillian Álvarez MD [address] [place] [address] PCP - General Internal Medicine 12/23/24
== END 2025-03-01 08:59 | disposition home or self-care (01) ==
LOC: HO.HGS 08:34
PROVIDERS: PCP Internal Medicine; Visit Provider Surgery
DX: R92.1 Mammographic calcification found on diagnostic imaging of breast (principal)
CPT/HCPCS: 99204

== ENCOUNTER → 2025-03-01 09:00 | Outpatient (BNV) | payer OTHER, SELFPAY | PROVIDERS: PCP Internal Medicine; Visit Provider Radiology Body Imaging | DX: R92.1 Mammographic calcification found on diagnostic imaging of breast (principal) | CPT/HCPCS: 19081; 77065 ==

== ENCOUNTER 2025-03-01 09:02 | Outpatient (REF) | payer OTHER, SELFPAY ==
--- NOTE | ~2025-03-01 | MM_ITS ---
EXAMINATION: STEREOTACTIC TOMOSYNTHESIS-GUIDED VACUUM-ASSISTED BREAST BIOPSY, LEFT SPECIMEN RADIOGRAPH, LEFT POST PROCEDURE DIGITAL MAMMOGRAM, LEFT CLINICAL INFORMATION: -Patient is status post stereotactic needle core biopsy of left breast calcifications on September 22, 2017. Pathology results showed sclerosing adenosis with microcalcifications. Nonproliferative fibrocystic changes. Top hat shape tissue marker was placed. -Diagnostic mammogram on February 23, 2025 was performed as 6-month follow-up for left breast grouped calcifications in the upper-outer quadrant with associated focal asymmetry. Given the slightly interval increase in these grouped amorphous calcifications in the upper outer quadrant, a stereotactic needle core biopsy was recommended. COMPARISON: Mammogram on February 23, 2025. Stereotactic needle core biopsy on September 22, 2017. TECHNIQUE/PROCEDURE: etcher electrolytic was present via telephone. Informed consent was obtained from the patient after discussion of the benefits, risks, and alternatives to biopsy today. Patient appeared to understand. Gave opportunity for questions. Patient signed consent form. Left stereotactic core biopsy: The patient's left breast was positioned in the Affirm Prone biopsy system ([employer]) and images of the calcifications in the upper outer quadrant were obtained. The breast was prepped for the procedure and the area was anesthetized with a local anesthetic 20 cc of lidocaine 1% buffered with Sodium Bicarbonate 4.2% (9cc: 1cc) superficially and deeper. Using a [employer] Eviva vacuum assisted 9 G probe, one pass was made through the area from lateral approach, and 12 specimens were obtained. A [employer] SecurMark for Eviva mini cork shape micromarker was placed at the site of the core biopsy. The needle was then removed and adequate hemostasis was achieved. Estimated blood loss: Minimal The patient experienced no complications during the procedure. Specimen radiograph confirms calcifications in multiple specimens. Patient was moved to another unit and unilateral left digital mammogram confirms mini cork shape clip in satisfactory position. Note that the newly placed mini cork shape clip is located posterior to the pre-existing top hat clip. Discharge instructions were reviewed with the patient and written instructions given. ASSESSMENT: BI-RADS Post procedure - Marker Placement MM/MM stereotactic biopsy LT IMPRESSION: Stereotactic biopsy of left breast grouped calcifications in the upper outer quadrant completed. Pathologic analysis is pending. Concordance addendum will be generated when pathologic analysis is complete. Electronically signed by: Wade James MD 03/01/2025 01:18 PM EDT RP
[2025-03-01] MEDS: Lidocaine HCl 1 % 20 ML VIAL SUBCUT (11:10)
== END 2025-03-01 09:03 | disposition home or self-care (01) ==
LOC: HO.MAMMO 09:02
PROVIDERS: PCP Internal Medicine; Visit Provider Surgery
DX: R92.8 Other abnormal and inconclusive findings on diagnostic imaging of breast (principal); N60.22 Fibroadenosis of left breast; Z12.31 Encounter for screening mammogram for malignant neoplasm of breast
CPT/HCPCS: 19081; 88305; 99202; A4648; J2003

== ENCOUNTER 2025-03-08 13:10 | Outpatient (AMB) | payer OTHER, SELFPAY ==
--- NOTE | 2025-03-08 13:23 | A.OFFVIS_ITS ---
Vital Signs 03/08/25 13:29 Height 5 ft 2 in Weight 145 lb 8.081 oz BMI 26.6 BP 130/80 Blood Pressure Location Lt brachial Position Sitting Intake Visit Reasons: s/p lt br bx results Intake Note: Patient is seen in office for biopsy RESULTS, following for left breast calcifications. Pt c/o: denies any concerns Unmanned Equipment Operator Required: Yes Unmanned Equipment Operator Language: System Consultant Services: Unmanned Equipment Operator Present Unmanned Equipment Operator Name: Shaneka HA Information Interpreted: non-clinical & clinical Upholstery Tech: Upholstery Tech Present Accompanied by: Self / Same As Patient Allergies tramadol Allergy (Intermediate, Verified 03/08/25 13:29) headaches HPI Comments Details: 60-year-old female patient presenting with a recent six-month follow-up mammogram of the left breast which revealed grouped amorphous calcifications in the upper outer quadrant slightly increased from the prior study therefore stereotactic guided core biopsy was recommended. She previously underwent a biopsy in the left breast in 2018 which was benign. She denies any current georgie symptoms of pain, redness, discharge or palpable mass. Her family history is significant for her mother developing breast cancer in her 50s and a maternal grandmother with breast cancer as well. She is unaware of any genetic testing in the past. Her menarche was at 13. She is in her 1st child was born when she was 22 years old. Her last menstrual period was approximately 10 years ago when she was 49. She denies hormone replacement therapy. She underwent stereotactic guided core biopsy at the [facility] on 03/01/2025. Pathology revealed fibrocystic change with columnar cell change and hyperplasia without atypia or calcifications. No evidence of malignancy was identified. She tolerated the procedure well and denies any ongoing breast symptoms. [facility] Medical History Empty sella Axillary lump Lesion of frontal lobe of brain Right shoulder pain Tachycardia Neck pain Numbness Insomnia GERD (gastroesophageal reflux disease) Dyslipidemia Polyarthralgia Multiple sclerosis Hyperlipemia Surgical History History of colonoscopy Hx of tubal ligation Family History Father Hypertension Mother Diabetes mellitus Breast cancer Maternal Grandmother Breast cancer Social History Household Members: Children Housing: Apartment Do you presently have visiting nurse or other home services: No Alcohol intake: never Patient Tobacco Use Status: Never used Tobacco e-Cigarette/Vaping Use: Never Used Second Hand Smoke Exposure: No service: No Current occupational status: disabled Cognitive needs: No Hearing needs: No Vision needs: No Physical Exam Vital Signs: Last Vital Signs BP 130/80 03/08/25 13:29 BMI result Body Mass Index 26.6 Const General: healthy appearing Nutritional Appearance: well nourished Orientation/consciousness: patient oriented x3 Chest Other: Biopsy site in the left upper outer quadrant is clean and intact without redness or ecchymosis. Resp Effort & Inspection: normal respiratory effort Skin Other: Warm, dry, no rash Neuro General: patient oriented x3 Assessment & Plan Assessment & Plan (1) Abnormal mammogram of left breast: Code(s): R92.8 - Other abnormal and inconclusive findings on diagnostic imaging of breast Category: Medical Plan 60-year-old female patient presenting with a recent mammogram which revealed increased amorphous calcifications in the left breast in the upper outer quadrant increased from her prior study and felt to be suspicious for malignancy (BI-RADS 4). On examination there was an area of slight thickening in the upper outer quadrant which may correspond to the area of suspicion of the mammogram. No other palpable mass, skin change, nipple discharge or enlarged lymph nodes are appreciated. She underwent stereotactic guided core biopsy at the [facility] on 03/01/2025. Pathology revealed benign breast tissue without atypia or malignancy. She tolerated the procedure well and returns today for wound check. She should follow up as needed. Coding Level of Care Code Est Pt Level 3 (14243) Diagnoses Abnormal mammogram of left breast R92.8
[2025-03-08 13:29] VITALS: BP 130/80; BMI 26.6
--- OUTSIDE RECORDS SUMMARY | 2025-03-08 13:59 | XMS_ITS | Encounter Summary ---
Author Organization [employer] Address [address] [place] [address] Care Team Providers Care Developmental Mathematics Instructor Name Role Phone Unavailable Primary Care [...]
--- OUTSIDE RECORDS SUMMARY | 2025-03-08 13:59 | XMS_ITS | Clinical Summary ---
Author Organization [address] [place] [address] Address [address] [place] [address] Phone Care Team Providers Care Extractor Operator Solvent Process Name Role Phone Lillian Álvarez MD Primary Care Provider [phone] Allergies No known active allergies Medications omeprazole [...] Team Description 12/27/2024 9:00 AM EDT Consult [facility] [address] [facility] [address] [place] [address] Sonya Montes MD Neuropathic pain (Primary [...] Description 03/31/2025 1:30 PM EDT Office Visit [address] [place] [address] Sonya Montes MD [address] [place] [phone] Health Maintenance Due Date Last Done Comments Breast Cancer Screening 1965 DTaP,Tdap,and Td Vaccines (1 - Tdap) 02/15/1983 Cervical Cancer Screening: P ap Smear 02/15/1985 Pneumococcal Vaccine: 50+ Years (1 of 1 - PCV) 02/15/2014 Zoster Vaccines (1 of 2) 02/15/2014 COVID-19 Vaccine ( - 2023-2 5 season) 2024 Depression Screening [...] Routine 12/27/2024 10:27 AM EDT Multiple sclerosis ([facility] [place]24, [facility] V28) VITAMIN B12 Routine 12/27/2024 10:27 AM EDT Multiple sclerosis ([facility] [place] V24, [facility] V28) VITAMIN D 25 HYDROXY Routine 12/27/2024 10:27 AM EDT Multiple sclerosis ([facility] [place] V24, [facility] V28) CREATININE, SERUM Routine 12/27/2024 10: 27 AM EDT Multiple sclerosis ([facility] [place] V24, [facility] V28) BUN Routine 12/27/2024 10:27 AM EDT Multiple sclerosis ([facility] [place] V24, [facility] V28) CBC AND DIFFERENTIAL Routine 12/27/2024 10:27 AM EDT Multiple sclerosis ([facility] [place] V24, [facility] V28) BORRELIA BURGDORFERI ANTIBODY Routine 12/27/2024 10:27 AM EDT Multiple sclerosis ([facility] [place] V24, [facility] V28) HEPATIC FUNCTION PANEL Routine 12/27/2024 10:27 AM EDT Multiple sclerosis ([facility] [place] V24, [facility] V28) VARICELLA ZOSTER ANTIBODY IGG Routine 12/27/2024 10:27 AM EDT Multiple sclerosis ([facility] [place] V24, [facility] V28) LILLIAN IFA WITH TITER AND PATTERN Routine 12/27/2024 10:27 AM EDT Multiple sclerosis ([facility]/HCC V24, [facility]/HCC V28) RHEUMATOID FACTOR Routine 12/27/2024 10: 27 AM EDT Multiple sclerosis ([facility]/HCC V24, CMS/HCC V28) SJOGRENS ANTIBODIES, SSA AND SSB Routine 12/27/2024 10:27 AM EDT Multiple sclerosis (CMS/HCC V24, CMS/HCC V28) JCV POLYOMA VIRUS ANTIBODY WITH REFLEX TO INHIBITION ASSAY Routine 12/27/2024 10:27 AM EDT Multiple sclerosis ([facility] V24, [facility] V28) from Last 3 Months Results * [...] measured by anti-JCV antibody index. 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 to JCV at an undetermined time Negative: Antibodies to JCV not detected Blood Venous blood specimen / Unknown Venipuncture / Unknown 12/27/2024 10:27 AM EDT 12/27/2024 10:27 AM EDT Narrative [facility] - 12/31/2024 10:05 AM EDT Performed at: 01 - [facility] [address] [place] [id number] Logistics Tech: Corinne Proctor MD, Phone: [phone] Sonya Montes MD LAB BLOOD ORDERABLES Fin al Result Performing Organization Address City/[facility]/ZIP Co de Phone Number [facility] * Sjogrens antibodies, SSA and SSB (12/27/2024 10:27 AM EDT) Sjogren's SS-A (Ro) Ab Quant 1 <20 units LAB CHEMISTRY METHOD 01/02/2025 10:44 AM EDT [facility] Sjogren's SS-A (Ro) Ab Negative Negative LAB CHEMISTRY METHOD 01/02/2025 10:44 AM EDT [facility] Sjogren's SS-B (La) Ab Quant 4 <20 units LAB CHEMISTRY METHOD 01/02/2025 10:44 AM EDT [facility] Sjogren's SS-B (La) Ab Negative Negative LAB CHEMISTRY METHOD 01/02/2025 10:44 AM EDT [facility] Blood Venous blood specimen / Unknown Venipuncture / Unknown 12/27/2024 10:27 AM EDT 12/27/2024 10:27 AM EDT Sonya Montes MD LAB BLOOD ORDERABLES Fin al Result [facility] [address] [place] [address], * LILLIAN IFA with titer and pattern (12/27/2024 10:27 AM EDT) [facility] LILLIAN Negative Negative 12/28/2024 1:56 PM EDT [facility] Blood Venous blood specimen / Unknown Venipuncture / Unknown 12/27/2024 10:27 AM EDT 12/27/2024 10:27 AM EDT Sonya Montes MD LAB BLOOD ORDERABLES Fin al Result Performing Organization Address [facility] Co de Phone Number [facility] [address] [place] [address], [place] [phone] * (ABNORMAL) CBC auto differential (12/27/2024 10:27 AM EDT) [facility] WBC 7.8 4.8 - 10.8 K/mcL LAB HEMETOLOGY METHOD [facility] RBC 5.00(H) 3.80 - 4.80 M/mcL LAB HEMETOLOGY METHOD 12/27[facility]2024 [facility] Hemoglobin 14.1 11.5 - 16.0 g/dL LAB HEMETOLOGY METHOD 12/27/2024 2:02 PM EDT [facility] Hematocrit 44.4 35.0 - 47.0 % LAB HEMETOLOGY METHOD 12/27/2024 2:[facility] MCV 89.3 79.0 - 98.0 FL LAB HEMETOLOGY METHOD 12/27/2024 2:02 PM [facility] MCH 28.4 27.0 - 32.0 pcg LAB HEMETOLOGY METHOD 12/27/2024 2:[facility] MCHC 31.8(L) 32.0 - 37.0 g/dL LAB HEMETOLOGY METHOD 12/27/2024 2:02 PM [facility] RDW 14.0 11.0 - 15.0 % LAB HEMETOLOGY METHOD 12/27/2024 2:02 PM [facility] Platelets 349 130 - 400 K/mcL LAB HEMETOLOGY METHOD 12/27/2024 2:02 PM [facility] MPV 10.7 7.0 - 11.0 FL LAB HEMETOLOGY METHOD 12/27/2024 2:02 PM [facility] NRBC 0.0 <1.0 % LAB HEMETOLOGY METHOD 12/27/2024 2:02 PM [facility] NRBC Absolute 0.00 <0.10 K/mcL LAB HEMETOLOGY METHOD 12/27/2024 2:02 PM [facility] Neutrophils Relative 69.0 % LAB HEMETOLOGY METHOD 12/27/2024 2:02 PM [facility] Lymphocytes Relative 23.4 % LAB HEMETOLOGY METHOD 12/27/2024 2:02 PM [facility] Monocytes Relative 4.6 % LAB HEMETOLOGY METHOD 12/27/2024 2:02 PM [facility] Eosinophils Relative 1.9 % LAB HEMETOLOGY METHOD 12/27/2024 2:02 PM [facility] Basophils Relative 0.8 % LAB HEMETOLOGY METHOD 12/27/2024 2:02 PM [facility] Immature Granulocytes Relative 0.3 % LAB HEMETOLOGY METHOD 12/27/2024 2:02 PM [facility] Neutrophils Absolute 5.40 1.50 - 7.00 K/mcL LAB HEMETOLOGY METHOD 12/27/2024 2:02 PM EDT [facility] Lymphocytes Absolute 1.83 1.00 - 5.00 K/mcL LAB HEMETOLOGY METHOD 12/27/2024 2:02 PM EDT [facility] Monocytes Absolute 0.36 0.20 - 1.00 K/mcL LAB HEMETOLOGY METHOD 12/27/2024 2:02 PM EDT [facility] Eosinophils Absolute 0.15 0.00 - 0.50 K/mcL LAB HEMETOLOGY METHOD 12/27/2024 2:02 PM EDT [facility] Basophils Absolute 0.06 0.00 - 0.20 K/mcL LAB HEMETOLOGY METHOD 12/27/2024 2:02 PM EDT [facility] Immature Granulocytes Absolute 0.02 0.00 - 0.03 K/mcL LAB HEMETOLOGY METHOD 12/27/2024 2:02 PM EDT [facility] Blood Venous blood specimen / Unknown Venipuncture / Unknown 12/27/2024 10:27 AM EDT 12/27/2024 10:27 AM EDT Sonya Montes MD LAB BLOOD ORDERABLES Fin al Result [facility] [address] [place] [address], * Borrelia burgdorferi antibody (12/27/2024 10:27 AM EDT) [facility] Lyme Ab Negative Negative LAB CHEMISTRY METHOD 12/27/2024 2:25 PM EDT [facility] Comment: No laboratory evidence of infection [...] ORDERABLES Fin al Result Performing Organization Address City/[facility]/ZIP Co de Phone Number [facility] [address] [place] [address], [place] [phone] * Creatinine (12/27/2024 10:27 AM EDT) Creatinine 0.75 0.50 - 1.10 mg/dL LAB CHEMISTRY METHOD 12/27/2024 3:22 PM EDT [facility] eGFR 91 >=60 mL/min/1. 73m2 LAB CHEMISTRY METHOD 12/27/2024 3:22 PM EDT [facility] Comment:Calculation based on the Chronic Kidney Disease Epidemiology Collaboration (CKD-EPI) equation refit without adjustment for race. Blood Venous blood specimen / Unknown Venipuncture / Unknown 12/27/2024 10:27 AM EDT 12/27/2024 10:27 AM EDT us Sonya Montes MD LAB BLOOD ORDERABLES Fin al Result Performing Organization Address [facility] Co de Phone Number [facility] [address] [place] [address], * (ABNORMAL) Vitamin D 25 hydroxy (12/27/2024 10:27 AM EDT) Vit D, 25-Hydroxy 28.7(L) 30.0 - 80.0 ng/mL LAB CHEMISTRY METHOD 12/27/2024 5:07 PM EDT [facility] Blood Venous blood specimen / Unknown Venipuncture / Unknown 12/27/2024 10:27 AM EDT 12/27/2024 10:27 AM EDT us Sonya Montes MD LAB BLOOD ORDERABLES Fin al Result Performing Organization Address [facility]/ZIP Co de Phone Number [facility] [address] [place] [address], * Rheumatoid factor (12/27/2024 10:27 AM EDT) Rheumatoid Factor <10.0 <15.0 I Unit/mL LAB CHEMISTRY METHOD 12/27/2024 3:50 PM EDT [facility] Blood Venous blood specimen / Unknown Venipuncture / Unknown 12/27/2024 10:27 AM EDT 12/27/2024 10:27 AM EDT us Sonya Montes MD LAB BLOOD ORDERABLES Fin al Result Performing Organization Address [facility] de Phone Number [facility] [address] [place] [address], * Varicella zoster antibody IgG (12/27/2024 10:27 AM EDT) [facility] Varicella IgG Positive Positive LAB CHEMISTRY METHOD 12/27/2024 2:17 PM EDT [facility] Varicella Zoster IgG 10.10 >=1.00 S/CO LAB CHEMISTRY METHOD 12/27/2024 2:17 PM EDT [facility] Blood Venous blood specimen / Unknown Venipuncture / Unknown 12/27/2024 10:27 AM EDT 12/27/2024 10:27 AM EDT Narrative [facility] - 12/27/2024 2:17 PM EDT Interpretation >= 1.00 S/CO is considered to be consistent with Immunity us Sonya Montes MD LAB BLOOD ORDERABLES Fin al Result Performing Organization Address City/[facility]/ZIP Co de Phone Number [facility] [address] [place] [address], * BUN (12/27/2024 10:27 AM EDT) BUN 15 5 - 25 mg/dL LAB CHEMISTRY METHOD 12/27/2024 3:22 PM EDT [facility] Blood Venous blood specimen / Unknown Venipuncture / Unknown 12/27/2024 10:27 AM EDT 12/27/2024 10:27 AM EDT us Sonya Montes MD LAB BLOOD ORDERABLES Fin al Result Performing Organization Address [facility]/ZIP Co de Phone Number [facility] [address] [place] [address], [place] [phone] * (ABNORMAL) Vitamin B12 (12/27/2024 10:27 AM EDT) [facility] Vitamin B-12 940(H) 250 - 900 pcg/mL LAB CHEMISTRY METHOD 12/27/2024 3:50 PM EDT [facility] Blood Venous blood specimen / Unknown Venipuncture / Unknown 12/27/2024 10:27 AM EDT 12/27/2024 10:27 AM EDT us Sonya Montes MD LAB BLOOD ORDERABLES Fin al Result Performing Organization Address [facility] de Phone Number [facility] [address] [place] [address], [place] [phone] * Hepatic function panel (12/27/2024 10:27 AM EDT) Pathologist [facility] Total Protein 7.2 6.0 - 8.0 g/dL LAB CHEMISTRY METHOD 12/27/2024 3:50 PM EDT [facility] Albumin 3.7 3.2 - 5.0 g/dL LAB CHEMISTRY METHOD 12/27/2024 3:50 PM EDT [facility] Total Bilirubin 0.4 0.0 - 1.4 mg/dL LAB CHEMISTRY METHOD 12/27/2024 3:50 PM EDT [facility] Bilirubin, Direct 0.1 0.0 - 0.3 mg/dL LAB CHEMISTRY METHOD 12/27/2024 3:50 PM EDT [facility] Bilirubin, Indirect 0.3 0.0 - 1.1 mg/dL LAB CHEMISTRY METHOD 12/27/2024 3:50 PM EDT [facility] ALT (SGPT) 57 10 - 60 unit/L LAB CHEMISTRY METHOD 12/27/2024 3:50 PM EDT [facility] AST (SGOT) 23 10 - 42 unit/L LAB CHEMISTRY METHOD 12/27/2024 3:50 PM EDT [facility] Alkaline Phosphatase 118 42 - 121 unit/L LAB CHEMISTRY METHOD 12/27/2024 3:50 PM EDT [facility] Blood Venous blood specimen / Unknown Venipuncture / Unknown 12/27/2024 10:27 AM EDT 12/27/2024 10:27 AM EDT Sonya Montes MD LAB BLOOD ORDERABLES Fin al Result [facility] [address] [place] [address], from Last 3 Months Insurance [facility] Member Subscriber Plan / Payer (Ef fective 2024-Present) Name:LILLIAN HOWARD Relation to Subscriber:Self Name:Lillian Howard Payer ID:[id number] Group ID:[id number] Type:Not on file Address: [place] [address] [address] [address] Care Teams Extractor Operator Solvent Process Relationship Specialty Start Date End Date Lillian Álvarez MD [address] [place] [address] PCP - General Internal Medicine 12/23/24
--- OUTSIDE RECORDS SUMMARY | 2025-03-08 13:59 | XMS_ITS | Patient Health Record ---
Author Organization [facility] Address [address] [facility] [address] [place] [address] Care Team Providers Care Roll Builder Name Role Phone Lillian Bolden Primary Care Provider Unavailab José Victoria Jr Unavailable Reason For Referral No Information Problems Problem Type SNOMED Code ICD Code Onset Dates Problem Status W/U Status Risk Notes Problem [id number] Elevated liver function tests (R94.5) Active confirmed Plan Of Treatment Pending Test Test Name Order Date LIVER PROFILE 09/02/2019 Future Test Test Name Order Date COLONOSCOPY 08/03/2014 Next Appt Details Provider Name:José summers Jr, 04/18/2025 01:15:00 PM, [address], [address], [place], [address], Insurance Providers Payer Name Payer Address Payer Phone Subscriber Number Group Number Insured Name Patient Relationship to Insured Coverage Start Date Coverage End Date [facility] [address] Attn Claims NELL[place] Perez [id number] [phone] [id number] LILLIAN SCHAEFER Self - patient is the insured Medical (General) History Medical History History ICD Code elevated Cholesterol colonoscopy 05/2014, followup do well Surgical History Surgery Date(Month/Year) tubal ligation
--- OUTSIDE RECORDS SUMMARY | 2025-03-08 13:59 | XMS_ITS | Clinical Summary ---
Author Organization [employer] Address [address] [place] [address] 7[address] [place] [address] Care Team Providers Care Business Control Manager Name Role Phone Unavailable Primary Care Provider [...]
== END 2025-03-08 13:28 | disposition home or self-care (01) ==
LOC: HO.HGS 13:11
PROVIDERS: PCP Internal Medicine; Visit Provider Surgery
DX: R92.8 Other abnormal and inconclusive findings on diagnostic imaging of breast (principal)
CPT/HCPCS: 99213

== ENCOUNTER → 2025-03-08 13:10 | Outpatient (BNVA) | payer OTHER, SELFPAY | PROVIDERS: PCP Internal Medicine; Visit Provider Surgery | DX: R92.8 Other abnormal and inconclusive findings on diagnostic imaging of breast (principal); Z80.3 Family history of malignant neoplasm of breast | CPT/HCPCS: 99212 ==

== ENCOUNTER 2025-03-30 08:41 | Outpatient (REF) | payer OTHER, SELFPAY ==
--- NOTE | 2025-03-30 08:44 | EMG_ITS ---
Chief complaint: History of MS, low back pain, complain of numbness in both feet Reason for referral: Evaluate for neuropathy Referred by: Dr. Jackson Procedure done: Bilateral lower extremity NCS/EMG Precautions and/or limitations: None Patient is Thai speaking, seen with nuclear physician. The limb temperature was monitored continuously and remained between 32-36 degrees C during the performance of the NCS. Nerve Conduction Studies Anti Sensory Summary Table ?Stim Site NR Onset (ms) Norm Onset (ms) Peak (ms) Norm Peak (ms) O-P Amp (?V) Norm O-P Amp Site1 Site2 Delta-0 (ms) Dist (cm) Ty (m/s) Norm Ty (m/s) Left Sural Anti Sensory (Lat Mall) Calf ? 2.3 2.9 <4.0 7.7 >5.0 Calf Lat Mall 2.3 14.0 61 Right Sural Anti Sensory (Lat Mall) Calf ? 2.6 3.7 <4.0 7.1 >5.0 Calf Lat Mall 2.6 14.0 54 Motor Summary Table ?Stim Site NR Onset (ms) Norm Onset (ms) O-P Amp (mV) Norm O-P Amp iAmp (mV) Amp (1st) (%) Site1 Site2 Delta-0 (ms) Dist (cm) Ty (m/s) Norm Ty (m/s) Right Peroneal Motor (Ext Dig Brev) Ankle ? 3.8 <4.0 8.3 >2.5 10.2 100.0 Ankle Ext Dig Brev 3.8 0.0 B Fib ? 9.1 8.0 9.7 96.4 B Fib Ankle 5.3 27.0 51 >40 Poplt ? 9.8 7.8 9.5 94.0 Poplt B Fib 0.7 6.0 86 >40 Left Tibial Motor (Abd Barboza Brev) Ankle ? 3.8 <5 8.3 >2.5 12.4 100.0 Ankle Abd Barboza Brev 3.8 0.0 Knee ? 10.4 7.1 10.8 85.5 Knee Ankle 6.6 33.0 50 >40 Right Tibial Motor (Abd Barboza Brev) Ankle ? 3.7 <5 11.8 >2.5 18.5 100.0 Ankle Abd Barboza Brev 3.7 0.0 Knee ? 10.2 7.6 11.3 64.4 Knee Ankle 6.5 34.0 52 >40 EMG ?Side Muscle Nerve Root Ins Act Fibs Psw Amp Dur Poly Recrt Int Pat Comment Right AbdHallucis MedPlantar S1-2 Nml Nml Nml Nml Nml 0 Nml Complete Right AntTibialis Dp Br Peron L4-5 Nml Nml Nml Nml Nml 0 Nml Complete Right PostTibialis Tibial L5, S1 Nml Nml Nml Nml Nml 0 Nml Complete Right MedGastroc Tibial S1-2 Nml Nml Nml Nml Nml 0 Nml Complete Right VastusMed Femoral L2-4 Nml Nml Nml Nml Nml 0 Nml Complete Left AbdHallucis MedPlantar S1-2 Nml Nml Nml Nml Nml 0 Nml Complete Left AntTibialis Dp Br Peron L4-5 Nml Nml Nml Nml Nml 0 Nml Complete Left PostTibialis Tibial L5, S1 Nml Nml Nml Nml Nml 0 Nml Complete Left MedGastroc Tibial S1-2 Nml Nml Nml Nml Nml 0 Nml Complete Left VastusMed Femoral L2-4 Nml Nml Nml Nml Nml 0 Nml Complete FINDINGS: All motor and sensory nerves tested showed normal latencies, amplitudes and conduction velocities. Concentric needle EMG was performed in selected muscles of the bilateral lower extremity. Study did not reveal signs of electric abnormalities as shown in the table above. IMPRESSION: 1. This is a normal study. 2. There is no electrodiagnostic evidence for peroneal neuropathy, tibial neuropathy, lumbosacral plexopathy, lumbar radiculopathy, or peripheral neuropathy. Thank you for your kind referral. Ynes Dodson MD, [place] Board Certified, [place] Board of [employer] Medicine and Rehabilitation (ABPMR) Board Certified, [place] Board of Electrodiagnostic Medicine (ABEM) CODIN [id number] x 2 MTDD
--- OUTSIDE RECORDS SUMMARY | 2025-03-30 10:07 | XMS_ITS | Patient Health Record ---
Author Organization [facility] Address [address] [place] [address] Care Team Providers Care Hand Roller Engraver Name Role Phone Lillian Bolden Primary Care Provider Unavailab José Victoria Jr Unavailable Reason For Referral No Information Problems Problem Type SNOMED Code ICD Code Onset Dates Problem Status W/U Status Risk Notes Problem [id number] Elevated liver function tests (R94.5) Active confirmed Plan Of Treatment Pending Test Test Name Order Date LIVER PROFILE 09/02/2019 Future Test Test Name Order Date COLONOSCOPY 08/03/2014 Next Appt Details Provider Name:José summers Jr, 04/18/2025 01:15:00 PM, [address] [facility] [address] [facility], [address], [place], [address], Insurance Providers Payer Name Payer Address Payer Phone Subscriber Number Group Number Insured Name Patient Relationship to Insured Coverage Start Date Coverage End Date [facility] [address] Attn Claims NELLA Perez [id number] LILLIAN SCHAEFER Self - patient is the insured Medical (General) History Medical History History ICD Code elevated Cholesterol colonoscopy 05/2014, followup do well Surgical History Surgery Date(Month/Year) tubal ligation
--- OUTSIDE RECORDS SUMMARY | 2025-03-30 10:07 | XMS_ITS | Encounter Summary ---
Author Organization [employer] Address [address] [facility] [address] [place] [address] Care Team Providers Care Wheel Filler Name Role Phone Unavailable Primary Care Provider [...]
--- OUTSIDE RECORDS SUMMARY | 2025-03-30 10:07 | XMS_ITS | Clinical Summary ---
Author Organization [employer] Address [address] [facility] [address]t [place] [address] Care Team Providers Care Juice Tester Name Role Phone Unavailable Primary Care Provider [...] COVID-19 Vaccine ( - 2023-2 5 season) 2025 Influenza Vaccine (#1) 2025 6, 09/15/2015 RSV [...]
--- OUTSIDE RECORDS SUMMARY | 2025-03-30 10:07 | XMS_ITS | Clinical Summary ---
Author Organization [address] [place] [address] Address [address] [place] [address] Phone Care Team Providers Care Subscription Clerk Name Role Phone Lillian Álvarez MD Primary Care Provider [phone] Allergies No known active allergies Medications omeprazole [...] at night 90 capsule 3 5 Active Social History Tobacco Use Types Packs/Day Years [...] Description 03/31/2025 1:30 PM EDT Office Visit [facility] [address] [place] [address] Sonya Montes MD [address] [place] [address] Health Maintenance Due Date Last Done Comments Breast Cancer Screening 1965 DTaP,Tdap,and Td Vaccines (1 - Tdap) 02/15/1983 Cervical Cancer Screening: P ap Smear 02/15/1985 Pneumococcal Vaccine: 50+ Years (1 of 1 - PCV) 02/15/2014 Zoster Vaccines (1 of 2) 02/15/2014 Depression Screening 07/14/2024 Colorectal Cancer Screening: Colonoscopy 12/24/2024 HIV Screening 12/24/2024 Hepatitis C Screening 12/24/2024 Social Influencers of Health Screening 12/24/2024 COVID-19 Vaccine (1 - 2023-2 5 season) 2025 Influenza Vaccine [...] on patient's age to complete this topic Insurance [facility] Member Subscriber Plan / Payer (Ef fective 2024-Present) Name:LILLIAN HOWARD Relation to Subscriber:Self Name:Lillian Howard Payer ID:[id number] Group ID:[id number] Type:Not on file Address: [place] [address] [address] [address] Care Teams Subscription Clerk Relationship Specialty Start Date End Date Lillian Álvarez MD [address] [place] [phone] PCP - General Internal Medicine 12/23/24
== END 2025-03-30 08:42 | disposition home or self-care (01) ==
LOC: HO.NEURO 08:41
PROVIDERS: PCP Internal Medicine; Visit Provider Psychiatry & Neurology Neurology
DX: R20.0 Anesthesia of skin (principal); G35 Multiple sclerosis
CPT/HCPCS: 95886; 95909

== ENCOUNTER → 2025-03-30 08:44 | Outpatient (BNV) | payer OTHER, SELFPAY | PROVIDERS: PCP Internal Medicine; Visit Provider Physical Medicine & Rehabilitation | DX: R20.0 Anesthesia of skin (principal) | CPT/HCPCS: 95886; 95909 ==

== ENCOUNTER 2025-05-04 13:38 | Outpatient (AMB) | payer OTHER, SELFPAY ==
--- OUTSIDE RECORDS SUMMARY | 2025-04-18 09:15 | XMS_ITS ---
Author Organization [facility] Address [address] [place] [address] Care Team Providers Care Infrastructure Analyst Name Role Phone Lillian Bolden Primary Care Provider José Ellington Jr REASON FOR VISIT Patient presents today for a colon screening Encounters Encounter Location Date Provider Diagnosis [facility] [address] [address] 04/18/2025 José Jimenez Jr Plan Of Treatment No Information Progress Notes * LILLIAN SCHAEFER MDOB:1965 (60 yo F)Acc No.[id number]:04/18/2025 Progress Notes Patient: Heaven LARA ALCIRA Provider: Heaven Jimenez MD :1965 A ge:60 Y S ex:Female Date:04/18/2025 Address:[address] [place], [place] [id number] Pcp:Lillian Álvarez Subjective: * Chief Complaints: * 1 . Patient presents today for a colon screening. * Medical History: Objective: * Vitals: Assessment: Plan: * Treatment: * * The named appointment provid er may or may not be the originator of this progress note, and it is not deemed complete until electronically signed by the appointment provider. Sign off status: Pending * Provider: Heaven Jimenez MD Date: Generated for Farrahi alice/Soto/eTransmitting on: 07:23 PM EDT
--- NOTE | 2025-05-04 13:50 | MHC.PC.OV ---
Vital Signs 05/04/25 13:51 Height 5 ft 2 in Weight 148 lb 2 oz BMI 27.1 BP 120/64 Blood Pressure Location Lt brachial Position Sitting Pulse 82 Pulse Source Pulse Oximeter Temp 97.3 F Temp Source Temporal Artery Scan Pulse Oximetry (%) 97 Oxygen Delivery Method Room Air Intake Visit Reasons: ms Intake Note: Patient is here to follow up on MS. Procedures Tech Required: No Tangible Personal Property Appraiser: Not Required per policy Accompanied by: Self / Same As Patient Allergies tramadol Allergy (Intermediate, Verified 05/04/25 14:03) headaches Medication List - Last Reconciled 05/04/25 by Lillian Álvarez MD diroximel fumarate (Vumerity) 231 mg PO BID 60 days gabapentin 300 mg PO BEDTIME 90 days ibuprofen 800 mg PO TID PRN 30 days loperamide (Imodium A-D) 2 mg PO Q4H PRN omeprazole 20 mg PO DAILY@0630 Shower Chair As directed tizanidine 4 mg PO BID PRN 30 days Ventolin HFA 90 mcg/actuation (albuterol sulfate) 2 puffs inhalation Q6H PRN 30 days NS Tobacco use date assessed: 05/04/25 Dental Screening Dental Screen Date: 11/02/24 HPI HPI Comments History of Present Illness Details The patient is a 60-year-old female presenting for management of multiple sclerosis and associated conditions. She complains of having allergic reaction twice of an unknown allergen in which she breakout in hives. Will be referred to an production line. She is under the care of a neurologist for multiple sclerosis. Current medications include bumetanide, gabapentin, and ibuprofen. Gabapentin causes drowsiness, leading to a dosage reduction. The patient is allergic to tramadol, which induces headaches. Asthma symptoms occur with pump usage. Arthritis at L1-L2 causes discomfort, managed with a lidocaine patch. Hyperlipidemia is monitored with planned laboratory tests. A breast biopsy was performed, yielding negative results. [facility] Medical History (Updated 05/04/25 @ 14:12 by Lillian Álvarez MD) Empty sella Axillary lump Lesion of frontal lobe of brain Right shoulder pain Tachycardia Neck pain Numbness Insomnia GERD (gastroesophageal reflux disease) Dyslipidemia Polyarthralgia Multiple sclerosis Hyperlipemia Surgical History History of colonoscopy Hx of tubal ligation Family History Father Hypertension Mother Diabetes mellitus Breast cancer Maternal Grandmother Breast cancer Social History Household Members: Children Housing: Apartment Do you presently have visiting nurse or other home services: No Alcohol intake: never Patient Tobacco Use Status: Never used Tobacco e-Cigarette/Vaping Use: Never Used Second Hand Smoke Exposure: No service: No Current occupational status: disabled Cognitive needs: No Hearing needs: No Vision needs: No Questionnaire Thrive Questionnaire Date Thrive assessed: 11/02/24 I am a: Patient What is your living situation today?: I have a steady place to live Within the past 12 months, did the food you bought not last and you didn't have the money to get more?: I choose not to answer this question Within the past 12 months, did you worry whether your food would run out before you got money to buy more?: I choose not to answer this question Do you have trouble paying for medicines?: No Do you have trouble getting transportation to medical appointments?: No Do you have trouble paying your heating and electricity bill?: No Do you have trouble taking care of your child, family member or friend?: No Do you have trouble with day-to-day activities such as bathing, preparing meals, shopping, managing finances, etc.?: No Are you currently unemployed and looking for a job?: Yes Are you interested in more education?: No Please select the resources that you would like help with: None Currently or been in a relationship where the following occur: I choose not to answer THRIVE Score: 0 DERRICK-7 AMB Questionnaire DERRICK-7 Date DERRICK - 7 assessed: 11/02/24 Source: Developed by Drs. Jesse White, Jaz Carrion, Giovanny Mckinley and colleagues, with an educational gopi from [employer]. Review of Systems Const All systems reviewed & are unremarkable except as noted in HPI and below Card Denies chest pain at rest, Denies chest pain with activity, Denies edema, Denies irregular heart rhythm, Denies claudication, Denies dyspnea, Denies dyspnea on exertion, Denies orthopnea, Denies paroxysmal nocturnal dyspnea and Denies slow heart rate Resp Denies cough, Denies dyspnea and Denies dyspnea on exertion Physical exam (Primary Care) Vital Signs: Last Vital Signs Temp 97.3 F 05/04/25 13:51 Pulse 82 05/04/25 13:51 BP 120/64 05/04/25 13:51 Pulse Ox 97 05/04/25 13:51 Oxygen Delivery Method Room Air 05/04/25 13:51 BMI result Body Mass Index 27.1 Tobacco/Smoking Status: Tobacco use Status Tobacco use date assessed 05/04/25 05/04/25 13:54 Patient Tobacco Use Status Never used Tobacco 05/04/25 13:54 e-Cigarette/Vaping Use Never Used 05/04/25 13:54 Thrive Assessment: Date of Thrive Assessment Date Thrive assessed 11/02/24 05/04/25 13:54 Currently or been in a relationship where the following occur: I choose not to answer Resp Effort & Inspection: normal respiratory effort Auscultation: clear to auscultation bilaterally Cardio Jugular venous distension: no JVD Rate: regular rate Rhythm: regular rhythm Heart sounds: S1 normal heart sound present and S2 normal heart sound present Extrem General: Yes full ROM Coding Level of Care Code Est Pt Level 4 (18793) Complex EM visit Add On G2211 Diagnoses Allergic reaction T78.40XA Dyslipidemia E78.5 Multiple sclerosis G35 Lumbar degenerative disc disease M51.369 Time Spent (min) 21 Assessment & Plan Assessment & Plan (1) Allergic reaction: Code(s): T78.40XA - Allergy, unspecified, initial encounter Category: Medical (2) Dyslipidemia: Code(s): E78.5 - Hyperlipidemia, unspecified Category: Medical (3) Multiple sclerosis: Code(s): G35 - Multiple sclerosis Category: Medical (4) Lumbar degenerative disc disease: Code(s): M51.369 - Other intervertebral disc degeneration, lumbar region without mention of lumbar back pain or lower extremity pain Category: Medical Plan Plan 1. Multiple Sclerosis Management continues under a neurologist with MRI monitoring and medication adjustments. 2. Lumbar degenerative disc disease Discomfort is managed with a lidocaine patch. 3. Hyperlipidemia Cholesterol levels will be monitored with planned laboratory tests. 4. Allergic reaction Referred to production line. Orders: Orders Lipid Panel 6 Months E78.5 - Hyperlipidemia, unspecified Vitamin D 25-OH Total 6 Months E55.9 - Vitamin D deficiency, unspecified Vitamin B12 and Folate 6 Months E53.8 - Deficiency of other specified B group vitamins Comprehensive Commerce. Panel Fast 6 Months E78.5 - Hyperlipidemia, unspecified Referrals Allergy & Immunology Referral T78.40XA - Allergy, unspecified, initial encounter Medications: New lidocaine 4% (Aspercreme (lidocaine)) 1 patch topical DAILY PRN 30 ea 0RF pain 30 days
[2025-05-04 13:51] VITALS: BP 120/64; PULSE 82; TEMP 36.3; O2SAT 97; BMI 27.1
--- OUTSIDE RECORDS SUMMARY | 2025-05-04 19:24 | XMS_ITS | Encounter Summary ---
Author Organization [employer] Address [address] [place] [address] Care Team Providers Care Consumer Affairs Manager Name Role Phone Unavailable Primary Care [...]
--- OUTSIDE RECORDS SUMMARY | 2025-05-04 19:24 | XMS_ITS | Patient Health Record ---
Author Organization [facility] Address [address] [place] [address] Care Team Providers Care Emergency Physician Name Role Phone Lillian Bolden Primary Care Provider Unavailab José Victoria Jr Unavailable [phone] Reason For Referral No Information Problems Problem Type SNOMED Code ICD Code Onset Dates Problem Status W/U Status Risk Notes Problem Elevated liver enzymes level (869042592) Elevated liver function tests (R94.5) Active confirmed Encounters Encounter Location Date Provider Diagnosis [facility] [address] [place] [address] 04/18/2025 José Jimenez Jr Plan Of Treatment Pending Test Test Name Order Date LIVER PROFILE 09/02/2019 Future Test Test Name Order Date COLONOSCOPY 08/03/2014 Insurance Providers Payer Name Payer Address Payer Phone Subscriber Number Group Number Insured Name Patient Relationship to Insured Coverage Start Date Coverage End Date [facility] [address] Attn Claims NELLA Perez [id number] LILLIAN SCHAEFER Self - patient is the insured Medical (General) History Medical History History ICD Code elevated Cholesterol colonoscopy 05/2014, followup do well Surgical History Surgery Date(Month/Year) tubal ligation
--- OUTSIDE RECORDS SUMMARY | 2025-05-04 19:24 | XMS_ITS | Clinical Summary ---
Author Organization [employer] Address [address] [place] [address] [address] [place] [address] Care Team Providers Care Geospatial Applications Developer Name Role Phone Unavailable Primary Care Provider [...]
--- OUTSIDE RECORDS SUMMARY | 2025-05-04 19:24 | XMS_ITS | Clinical Summary ---
Author Organization [address] [place] [address] Address [address] [place] [address] Phone Care Team Providers Care Cloth Cutting Inspector Name Role Phone Valerie Álvarez MD Primary Care Provider [phone] Allergies No known active allergies Medications omeprazole [...] 12/27/2024 9:15 AM EDT Plan of Treatment Health Maintenance Due Date Last Done Comments Breast Cancer Screening 1965 Colorectal Cancer Screening: Colonoscopy 1965 DTaP,Tdap,and Td Vaccines (1 - Tdap) 02/15/1983 Cervical Cancer Screening: P ap Smear 02/15/1985 Pneumococcal Vaccine: 50+ Years (1 of 1 - PCV) 02/15/2014 Zoster Vaccines (1 of 2) 02/15/2014 Depression Screening 07/14/2024 HIV Screening 12/24/2024 Hepatitis C Screening 12/24/2024 Social Influencers of Health Screening 12/24/2024 COVID-19 Vaccine ( - 2023-2 5 season) [...] patient's age to complete this topic Insurance [facility] Member Subscriber Plan / Payer (Ef fective 2024-Present) Name:VALERIE SCHAEFER Relation to Subscriber:Self Name:Valerie Schaefer Payer ID:[id number] Group ID:[id number] Type:Not on file Address: [place] [address] [address] [id number] Care Teams Cloth Cutting Inspector Relationship Specialty Start Date End Date Valerie Álvarez MD [address] [place] [address] PCP - General Internal Medicine 12/23/24
== END 2025-05-04 14:15 | disposition home or self-care (01) ==
PROVIDERS: PCP Internal Medicine; Visit Provider Internal Medicine
DX: E78.5 Hyperlipidemia, unspecified (principal); T78.40XA Allergy, unspecified, initial encounter; G35.D Multiple sclerosis, unspecified; M51.369 Other intervertebral disc degeneration, lumbar region without mention of lumbar back pain or lower extremity pain

== ENCOUNTER → 2025-05-04 13:38 | Outpatient (BNVA) | payer OTHER, SELFPAY | PROVIDERS: PCP Internal Medicine; Visit Provider Internal Medicine | DX: M51.369 Other intervertebral disc degeneration, lumbar region without mention of lumbar back pain or lower extremity pain (principal); G35.D Multiple sclerosis, unspecified; E78.5 Hyperlipidemia, unspecified; E55.9 Vitamin D deficiency, unspecified; E53.8 Deficiency of other specified B group vitamins; Z91.09 Other allergy status, other than to drugs and biological substances | CPT/HCPCS: 99212 ==